=== PATIENT | female | born 1970 | race Caucasian/White ===

== ENCOUNTER 2017-01-13 22:50 | Emergency (ER) | payer SELFPAY ==
[2017-01-13 23:04] VITALS: BMI 43.4
--- NOTE | 2017-01-13 23:53 | DR.GENAD ---
HPI - PCP Primary Care Physician: nfd - HPI Comment HPI Comment: PATIENT IS HAVING GENERALIZE ACHES AND PAIN, FEVER AND HEADACHE. STARTED SUDDENLY. PATIENT NOTICE STRONG ODOR TO HER URINE. - Complaint/Symptoms Chief Complaint Doctors Comments: GENERALIZE BODY ACHES, FEVER AND HEADACHE THAT STARTED TODAY. Chief Complaint:: hurting all over, chest is hurting, my head feels like it's going to bust whole body feels like it's trying to draw up. started about 4 pm today - Nurses notes reviewed Nurses Notes Review: Yes - Source History Provided: Patient - Mode of Arrival Mode of Arrival: Ambulatory - Timing Onset of Chief Complaint: 01/13/17 Came on: Suddenly - Duration Duration: Constant Duration: Days - Severity Severity: Moderate PMH - PMH Past Medical History: Yes Past Medical History: Anxiety, Asthma, COPD, Depression, Dyslipidemia, GERD Past Medical History Comment: pinched nerve in back sciatica ddd Past Surgical History: Yes Surgical History: - Family History History of Family Medical Conditions: Yes Family Medical History: Diabetes Mellitus, Cancer, Heart Failure, Hypertension - Social History Does patient currently use any type of tobacco product: Yes Have you used tobacco products in the last 12 months: No Type of Tobacco Use: Cigarettes How many years tobacco product used: 25 Does any household member use tobacco: No Alcohol Use: Occasionally Do you use any recreational Drugs:: No Lives With: Significant Other Lives Where: Home - infectious screening In the last 2 months have you had wt loss of >10#?: YES Have you had fever, night sweats or hemotysis?: No Have you traveled outside the country in the last 6 months?: No Isolation: Standard ROS - Review of Systems Constitutional: Fever, Weakness, Fatigue. negative: Chills Eyes: No Symptoms Reported. negative: Eye Pain, Discharge ENTM: Nose Congestion. negative: Ear Pain, Nose Discharge, Throat Pain Respiratoy: Non-Productive Cough, Short of Breath. negative: Wheezing, Hemoptysis Cardiovascular: Chest Pain. negative: Edema, Palpitations Gastrointestinal/Abdominal: No Symptoms Reported, Diarrhea, Nausea. negative: Abdominal Pain, Vomiting Genitourinary: Other (ODOR TO URINE). negative: Dysuria, Frequency, Hematuria Neurological: Headache Musculoskeletal: Muscle Pain Integumentary: No Symptoms Reported Hematologic/Lymphatic: No Symptoms Reported Endocrine: No Symptoms Reported All Other Systems: Reviewed and Negative PE - Vital Signs Vitals: Temperature 98.3 F Pulse Rate [Left Brachial] 95 Pulse Rate 117 Respiratory Rate 24 Blood Pressure [Left Arm] 132/80 Blood Pressure 149/77 O2 Sat by Pulse Oximetry 96 - General Limitations: No Limitations General Appearance: Alert - Head Head Exam: Normal Inspection - Eyes Eye exam: Normal Appearance - ENT ENT Exam: Normal External Ear Exam External Ear Exam: Normal External Inspection TM/Canal Exam: Bilateral Bulging Nose Exam: Normal Nose Exam Mouth Exam: Normal Inspection Throat Exam: Normal Inspection - Neck Neck Exam: Trachea Midline - Chest Chest Inspection: Symmetric Chest Wall Rise - Respiratory Respiratory Exam: Normal Lung Sounds Bilat Respiratory Exam: Bilateral Clear to Auscultation - Cardiovascular Cardiovascular Exam: Regular Rate, Normal Rhythm, Normal Heart Sounds - Abdominal Exam Abdominal Exam: Normal Bowel Sounds, Soft. negative: Tenderness - Extremities Extremities Exam: Normal Inspection - Back Back Exam: Normal Inspection - Neurologic Neurological Exam: Alert, Oriented X3, CN II-XII Intact - Psychiatric Psychiatric Exam: Normal Affect, Normal Mood - Skin Skin Exam: Normal Color MDM - Differential Diagnosis Differential Diagnosis: INFLUENZA, HEADACHE, SINUSITIS, MYALGIA Course - Treatment Treatment: SEE ORDERS. - Education/Counseling Education/Counseling: Patient, Education Educated On: Diagnosis, Needs for Follow Up ROR - Labs Reviewed Laboratory Results Reviewed?: Yes Laboratory: Specimen Type Clean catch urine 01/14/17 00:06 Urine Color Yellow (YELLOW) 01/14/17 00:06 Urine Appearance Clear (CLEAR) 01/14/17 00:06 Urine pH 6.5 (5.0 - 8.0) 01/14/17 00:06 Ur Specific [place] 1.010 (1.000-1.030) 01/14/17 00:06 Urine Protein Negative (NEGATIVE) 01/14/17 00:06 Urine Glucose (UA) Negative (NEGATIVE) 01/14/17 00:06 Urine Ketones Negative (NEGATIVE) 01/14/17 00:06 Urine Occult Blood 1+ (NEGATIVE) 01/14/17 00:06 Urine Nitrite Negative (NEGATIVE) 01/14/17 00:06 Urine Bilirubin Negative (NEGATIVE) 01/14/17 00:06 Urine Urobilinogen Normal (NORMAL) 01/14/17 00:06 Ur Leukocyte Esterase Negative (NEGATIVE) 01/14/17 00:06 Urine RBC 0-3 /HPF (NEGATIVE) 01/14/17 00:06 Urine WBC 0-1 /HPF (NEGATIVE) 01/14/17 00:06 Ur Squamous Epith Cells Rare /HPF (NEGATIVE) 01/14/17 00:06 Urine Bacteria Trace /HPF (NEGATIVE) 01/14/17 00:06 Ur Culture Indicated? No/not indicated 01/14/17 00:06 Influenza A (H1N1) PCR Not detected (NOT DETECT) 01/14/17 00:07 Influenza Type A (PCR) Negative (NEGATIVE) 01/14/17 00:07 Influenza Type B (PCR) Negative (NEGATIVE) 01/14/17 00:07 - XRAY XRAY Interpreted by: Self XRAY Findings: NO ACUTE INFILTERATE. DISCUSS SAME WITH PATIENT. - Diagnosis Discharge Problem: Sinusitis, Myalgia, Generalized pain - Discharge Plan Disposition: HOME, SELF-CARE Condition: Stable Prescriptions: Amoxicillin [Amoxil 875 mg] 875 mg PO BID #20 tab Ibuprofen [Motrin Tab 800 mg] 800 mg PO Q8H PRN #20 tab PRN Reason: Pain/Inflammation Tramadol HCl 50 mg PO Q8H PRN #15 tab PRN Reason: Pain - Follow ups/Referrals Follow ups/Referrals: NFD,None [Primary Care Provider] - 2 days Zan Koenig [STAFF PHYSICIAN] - 2 days - Instructions Instructions: Sinusitis, Adult, Muscle Cramps and Spasms Additional Instructions: RETURN TO ED IF WORSE.
[2017-01-13] MEDS ORDERED: TORADOL 60 MG VIAL IM ONE (23:55)
[2017-01-13] MEDS ORDERED: TORADOL 60 MG VIAL ONE (23:56)
[2017-01-14 00:23] LABS: BILIRUBIN,URINE NEGATIVE (NEGATIVE); BLOOD/HEMOGLOBIN,URINE 1+ (NEGATIVE); GLUCOSE, URINE NEGATIVE (NEGATIVE); KETONES,URINE NEGATIVE (NEGATIVE); LEUKOCYTE ESTERASE ,URINE NEGATIVE (NEGATIVE); NITRITES,URINE NEGATIVE (NEGATIVE); PH,URINE 6.5 (5.0 - 8.0); PROTEIN,URINE NEGATIVE (NEGATIVE); UROBILINOGEN,URINE NORMAL (NORMAL)
[2017-01-14 00:29] LABS: APPEARANCE,URINE CLEAR (CLEAR); COLOR,URINE YELLOW (YELLOW); RBC,URINE 0-3 /HPF (NEGATIVE)
[2017-01-14 00:30] LABS: BACTERIA,URINE TRACE /HPF (NEGATIVE); SQUAMOUS EPITHELIAL CELL,UR RARE /HPF (NEGATIVE)
[2017-01-14] MEDS ORDERED: NORCO 10/325 TAB PO ONE (01:43)
[2017-01-14] MEDS ORDERED: AMOXIL CAP 500 MG PO ONE ×2 (01:44→01:45)
[2017-01-14] MEDS ORDERED: NORCO 10/325 TAB ONE (01:46)
[2017-01-14 02:13] VITALS: BP 132/80
--- NOTE | 2017-01-14 04:01 | RAD ---
AP Chest Indication: Chest pain Comparison: 10/26/12 Findings: The trachea is midline. The cardiac silhouette is unremarkable. The lungs are clear without focal infiltrate or effusion. The bony thorax is unremarkable. IMPRESSION: 1. No acute cardiopulmonary abnormality. Reported By:
== END 2017-01-14 02:13 | disposition home or self-care (01) ==
LOC: ER 23:07
DX: J32.9 Chronic sinusitis, unspecified (principal); M79.1 Myalgia; R52 Pain, unspecified
CPT/HCPCS: 71010; 81001; 87502; 87503; 96372; 99282; 99283; J1885

== ENCOUNTER 2017-05-09 19:36 | Emergency (ER) | payer SELFPAY ==
[2017-05-09 19:43] VITALS: BP 135/82; BMI 44.6
[2017-05-09] MEDS ORDERED: TORADOL 60 MG VIAL IM ONE (20:58)
[2017-05-09] MEDS ORDERED: PHENERGAN INJ 25 MG IM ONE (20:59)
[2017-05-09] MEDS ORDERED: PHENERGAN INJ 25 MG ONE (21:01)
[2017-05-09] MEDS ORDERED: TORADOL 60 MG VIAL ONE (21:01)
--- NOTE | 2017-05-09 21:03 | DR.GENAD ---
HPI - PCP Primary Care Physician: BELL YOUNGER - Complaint/Symptoms Chief Complaint Doctors Comments: Patient complains of RLQ pain for the past 24 hours getting worst tonight with her not being able to get any relief. States she took a Hydrocodone 7.5/325 with no improvement in the pain. She denies hematuria, nausea, vomiting, diarrhea or any recent trauma. States she is a patient of [facility]. She denies problems with kidney stones. States the pain is worst when she move and tries to walk. Chief Complaint:: PT C/O LOWER RIGHT QUADRANT PAIN. PT STATES THE PAIN STARTED YESTERDAY, BUT IS WORSE TODAY. PT DESCRIBES THE PAIN A STABBING PAIN THAT SHE CANNOT GET ANY RELIEF FROM. Self Treatment fo Chief Complaint: LORCET AROUND 1300 - Nurses notes reviewed Nurses Notes Review: Yes - Source History Provided: Patient - Mode of Arrival Mode of Arrival: Wheelchair - Timing Onset of Chief Complaint: 05/08/17 Came on: Gradually - Duration Duration: Constant How lon Duration: Hours - Location Location: right lower quadrant pain - Severity Severity: Moderate - Modifying Factors Worsens:: movement Improves:: nothing PMH - PMH Past Medical History: Yes Past Medical History: Anxiety, Asthma, COPD, Depression, Dyslipidemia, GERD Past Surgical History: Yes Surgical History: - Family History History of Family Medical Conditions: Yes Family Medical History: Diabetes Mellitus, Cancer, Heart Failure, Hypertension - Social History Alcohol Use: Rarely Do you use any recreational Drugs:: No Lives With: Family Lives Where: Home - infectious screening In the last 2 months have you had wt loss of >10#?: NO Have you had fever, night sweats or hemotysis?: No Have you traveled outside the country in the last 6 months?: No Isolation: Standard ROS - Review of Systems Constitutional: No Symptoms Reported. negative: See HPI, Chills, Diaphoresis, Fever, Malaise, Weakness, Irritable, Fatigue, Loss of Appetite, Other Eyes: No Symptoms Reported. negative: See HPI, Eye Pain, Blurred Vision, Tearing, Discharge, Photophobia, Diplopia, Other ENTM: No Symptoms Reported Respiratoy: No Symptoms Reported. negative: See HPI, Productive Cough, Non- Productive Cough, Moist Cough, Dry Cough, Hacking Cough, Barking Cough, Brassy Cough, Orthopnea, Short of Breath, Stridor, Wheezing, Hemoptysis, Other Cardiovascular: No Symptoms Reported Gastrointestinal/Abdominal: No Symptoms Reported, Abdominal Pain, Nausea, Vomiting Genitourinary: No Symptoms Reported Neurological: No Symptoms Reported Musculoskeletal: No Symptoms Reported Integumentary: No Symptoms Reported. negative: See HPI, Change in Color, Change in Hair/Nails, Dryness, Lesions, Lumps, Rash, Itching, Wound, Bruises, Juandice, Other Hematologic/Lymphatic: No Symptoms Reported. negative: See HPI, Anemia, Blood Clots, Easy Bleeding, Easy Bruising, Swollen Glands, Lymphadenopathy, Other Endocrine: No Symptoms Reported Psychiatric: No Symptoms Reported PE - Vital Signs Vitals: Temperature 98.6 F Pulse Rate 115 Respiratory Rate 20 Blood Pressure [Left Arm] 132/80 Blood Pressure 135/82 O2 Sat by Pulse Oximetry 96 - General Limitations: No Limitations General Appearance: Alert, In Distress (moderate) - Head Head Exam: Normal Inspection, Atraumatic, Normocephalic - Eyes Eye exam: Normal Appearance, PERRL, EOMI. negative: Scleral Icterus, Conjunctival Injection, Nystagmus, Miosis, Mydrasis, Periorbital Swelling, Periorbital Tenderness, Other - ENT ENT Exam: Normal Exam, Normal Oropharynx, Normal External Ear Exam, Mucous Membranes Moist, TM's Normal Bilaterally External Ear Exam: Normal External Inspection TM/Canal Exam: Bilateral Normal Nose Exam: Normal Nose Exam Mouth Exam: Normal Inspection Throat Exam: Normal Inspection. negative: Tonsillar Erythema, Tonsillomegaly, Tonsillar Exudate, R Peritonsillar Mass, L Peritonsillar Mass, Muffled Voice, Other - Neck Neck Exam: Normal Inspection, Full ROM, Trachea Midline - Chest Chest Inspection: Normal Inspection, Symmetric Chest Wall Rise. negative: Tenderness, Rash, Abscess, Other - Respiratory Respiratory Exam: Normal Lung Sounds Bilat Respiratory Exam: Bilateral Clear to Auscultation - Cardiovascular Cardiovascular Exam: Regular Rate, Normal Rhythm, Normal Heart Sounds. negative : Bradycardia, Tachycardia, Irregular Rhythm, Systolic Murmur, Diastolic Murmur , Rubs, Gallop, Clicks, JVD, +S1, +S2, +S3, +S4, Other - Abdominal Exam Abdominal Exam: Normal Inspection, Normal Bowel Sounds, Soft Abdominal Tenderness: RLQ, Suprapubic, Moderate - Extremities Extremities Exam: Normal Inspection, Full ROM, Normal Capillary Refill. negative: Tenderness, Edema, Joint Swelling, Calf Tenderness, Other - Back Back Exam: Normal Inspection, Full ROM, (R) CVA Tenderness - Neurologic Neurological Exam: Alert, Oriented X3, CN II-XII Intact, Normal Gait, Reflexes Normal - Psychiatric Psychiatric Exam: Normal Affect, Normal Mood - Skin Skin Exam: Warm, Dry, Intact, Normal Color ROR - Labs Reviewed Laboratory Results Reviewed?: Yes (all labs and x-ray results reviewed and discussed with patient) Result Diagrams: 05/09/17 21:07 05/09/17 21:07 Laboratory: WBC 15.9 X10^3/uL (3.6-10.0) H 05/09/17 21:07 RBC 4.98 X10^6/uL (3.5-5.4) 05/09/17 21:07 Hgb 14.5 g/dL (12.0-16.0) 05/09/17 21:07 Hct 43.1 % (36.0-47.0) 05/09/17 21:07 MCV 86.5 fL (80.0-100.0) 05/09/17 21:07 MCH 29.1 pg (27.0-34.0) 05/09/17 21:07 MCHC 33.6 g/dL (33.0-35.0) 05/09/17 21:07 RDW 14.4 % (11.6-16.5) 05/09/17 21:07 Plt Count 319 X10^3/uL (150.0-450.0) 05/09/17 21:07 MPV 8.3 fL (7.4-11.0) 05/09/17 21:07 Neut % 76.5 % (42.0-75.0) H 05/09/17 21:07 Lymph % 14.7 % (21.0-51.0) L 05/09/17 21:07 [place] % 7.6 % (0.0-13.0) 05/09/17 21:07 Eos % 0.5 % (0.9-2.9) L 05/09/17 21:07 Baso % 0.7 % (0.2-1.0) 05/09/17 21:07 Neut # 12.2 x10^3/uL (2.2-4.8) H 05/09/17 21:07 Lymph # 2.3 X10^3/uL (1.3-2.9) 05/09/17 21:07 [place] # 1.2 x10^3/uL (0.3-0.8) H 05/09/17 21:07 Eos # 0.1 x10^3/uL (0.0-0.2) 05/09/17 21:07 Baso # 0.1 X10^3/uL (0.0-0.1) 05/09/17 21:07 Absolute Nucleated RBC 0.0 /100WBC 05/09/17 21:07 Sodium 138 mmol/L (136-145) 05/09/17 21:07 Corrected Sodium TNP 05/09/17 21:07 Potassium 4.3 mmol/L (3.5-5.1) 05/09/17 21:07 Chloride 100 mmol/L (98-107) 05/09/17 21:07 Carbon Dioxide 29.2 mmol/L (21-32) 05/09/17 21:07 BUN 12 mg/dL (7-18) 05/09/17 21:07 Creatinine 0.85 mg/dL (0.55-1.02) 05/09/17 21:07 Est GFR (MDRD) Af Amer > 60 (>60) 05/09/17 21:07 Est GFR (MDRD) Non-Af > 60 (>60) 05/09/17 21:07 Glucose 107 mg/dL (65-99) H 05/09/17 21:07 Calcium 8.9 mg/dL (8.5-10.1) 05/09/17 21:07 Corrected Calcium 9.5 mg/dL (8.5-10.1) 05/09/17 21:07 Total Bilirubin 0.40 mg/dL (0.2-1.0) 05/09/17 21:07 AST 14 Units/L (15-37) L 05/09/17 21:07 ALT 25 Units/L (12-78) 05/09/17 21:07 Alkaline Phosphatase 114 Units/L (46-116) 05/09/17 21:07 Total Protein 7.8 g/dL (6.4-8.2) 05/09/17 21:07 Albumin 3.3 g/dL (3.4-5.0) L 05/09/17 21:07 Globulin 4.5 g/dL (2.5-4.5) 05/09/17 21:07 Albumin/Globulin Ratio 0.7 Ratio (1.1-2.1) L 05/09/17 21:07 Amylase 36 Units/L (25-115) 05/09/17 21:07 Lipase 103 Units/L (73-393) 05/09/17 21:07 Specimen Type Clean catch urine 05/09/17 21:26 Urine Color Yellow (YELLOW) 05/09/17 21:26 Urine Appearance Clear (CLEAR) 05/09/17 21:26 Urine pH 6.5 (5.0 - 8.0) 05/09/17 21:26 Ur Specific [place] 1.015 (1.000-1.030) 05/09/17 21:26 Urine Protein Negative (NEGATIVE) 05/09/17 21:26 Urine Glucose (UA) Negative (NEGATIVE) 05/09/17 21:26 Urine Ketones Negative (NEGATIVE) 05/09/17 21:26 Urine Occult Blood 1+ (NEGATIVE) 05/09/17 21:26 Urine Nitrite Negative (NEGATIVE) 05/09/17 21:26 Urine Bilirubin Negative (NEGATIVE) 05/09/17 21:26 Urine Urobilinogen Normal (NORMAL) 05/09/17 21:26 Ur Leukocyte Esterase 1+ (NEGATIVE) 05/09/17 21:26 Urine RBC 0-2 /HPF (NEGATIVE) 05/09/17 21:26 Urine WBC 3-5 /HPF (NEGATIVE) 05/09/17 21:26 Ur Squamous Epith Cells Rare /HPF (NEGATIVE) 05/09/17 21:26 Urine Bacteria Trace /HPF (NEGATIVE) 05/09/17 21:26 Urine Mucus Moderate /HPF (NEGATIVE) 05/09/17 21:26 Ur Culture Indicated? No/not indicated 05/09/17 21:26 - XRAY XRAY Interpreted by: Radiologist (CT abdomen: Normal CT examination of the abdomen and pelvis.) - Diagnosis Discharge Problem: Abdominal pain, Cystitis, Myalgia - Discharge Plan Disposition: 01 HOME, SELF-CARE Condition: Stable Prescriptions: Acetaminophen/Codeine Tab [TYLENOL w/CODEINE #3 (300 MG/30 MG) *] 1 tab PO Q4- 6H PRN #18 tab PRN Reason: Pain Ciprofloxacin HCl [CIPRO 500 MG TAB *] 500 mg PO Q12H #20 tab Cyclobenzaprine HCl [FLEXERIL 10 MG *] 10 mg PO TID #18 tab - Follow ups/Referrals Follow ups/Referrals: ANDREW YOUNGER [Primary Care Provider] - 3 days - Instructions Instructions: Abdominal Pain, Adult, [id number], Hematuria, Adult, Muscle Pain, Adult
[2017-05-09 21:12] LABS: BASOPHILS # (AUTO) 0.1 X10^3/uL (0.0-0.1); BASOPHILS % (AUTO) 0.7 % (0.2-1.0); EOSINOPHILS # (AUTO) 0.1 x10^3/uL (0.0-0.2); EOSINOPHILS % (AUTO) 0.5 % (0.9-2.9); HEMATOCRIT 43.1 % (36.0-47.0); HEMOGLOBIN 14.5 g/dL (12.0-16.0); LYMPHOCYTES # (AUTO) 2.3 X10^3/uL (1.3-2.9); LYMPHOCYTES % (AUTO) 14.7 % (21.0-51.0); MEAN CORPUSCULAR HEMOGLOBIN 29.1 pg (27.0-34.0); MEAN CORPUSCULAR HGB CONC 33.6 g/dL (33.0-35.0); MEAN CORPUSCULAR VOLUME 86.5 fL (80.0-100.0); MEAN PLATELET VOLUME 8.3 fL (7.4-11.0); MONOCYTES # (AUTO) 1.2 x10^3/uL (0.3-0.8); MONOCYTES % (AUTO) 7.6 % (0.0-13.0); NEUTROPHILS # (AUTO) 12.2 x10^3/uL (2.2-4.8); NEUTROPHILS % (AUTO) 76.5 % (42.0-75.0); PLATELET COUNT 319 X10^3/uL (150.0-450.0); RED BLOOD COUNT 4.98 X10^6/uL (3.5-5.4); RED CELL DISTRIBUTION WIDTH 14.4 % (11.6-16.5); WHITE BLOOD COUNT 15.9 X10^3/uL (3.6-10.0)
[2017-05-09 21:26] LABS: ALANINE AMINOTRANSFERASE 25 Units/L (12-78); ALBUMIN 3.3 g/dL (3.4-5.0); ALKALINE PHOSPHATASE 114 Units/L (46-116); AMYLASE 36 Units/L (25-115); ASPARTATE AMINO TRANSFERASE 14 Units/L (15-37); BLOOD UREA NITROGEN 12 mg/dL (7-18); CALCIUM 8.9 mg/dL (8.5-10.1); CARBON DIOXIDE 29.2 mmol/L (21-32); CHLORIDE 100 mmol/L (98-107); COR CA(FOR HYPOALB) 9.5 mg/dL (8.5-10.1); CREATININE 0.85 mg/dL (0.55-1.02); GLUCOSE 107 mg/dL (65-99); LIPASE 103 Units/L (73-393); SODIUM 138 mmol/L (136-145); TOTAL PROTEIN 7.8 g/dL (6.4-8.2); eGFR BLACK RACES > 60 (>60); eGFR NON BLACK RACES > 60 (>60)
[2017-05-09 21:47] LABS: BILIRUBIN,URINE NEGATIVE (NEGATIVE); BLOOD/HEMOGLOBIN,URINE 1+ (NEGATIVE); GLUCOSE, URINE NEGATIVE (NEGATIVE); KETONES,URINE NEGATIVE (NEGATIVE); LEUKOCYTE ESTERASE ,URINE 1+ (NEGATIVE); NITRITES,URINE NEGATIVE (NEGATIVE); PH,URINE 6.5 (5.0 - 8.0); PROTEIN,URINE NEGATIVE (NEGATIVE); UROBILINOGEN,URINE NORMAL (NORMAL)
[2017-05-09 21:51] LABS: APPEARANCE,URINE CLEAR (CLEAR); BACTERIA,URINE TRACE /HPF (NEGATIVE); COLOR,URINE YELLOW (YELLOW); MUCUS,URINE MODERATE /HPF (NEGATIVE); RBC,URINE 0-2 /HPF (NEGATIVE); SQUAMOUS EPITHELIAL CELL,UR RARE /HPF (NEGATIVE)
--- NOTE | 2017-05-09 22:26 | CT ---
EXAM: CT ABDOMEN AND PELVIS WITHOUT CONTRAST INDICATION: Right lower quadrant pain COMPARISION: No priors available for comparison TECHNIQUE: Axial CT examination of the abdomen and pelvis was performed without intravenous contrast. Coronal a nd sagittal reconstructions were created using the axial data. FINDINGS: The lung bases are clear. The liver, spleen, pancreas, adrenal glands, kidneys, and gallbladder are normal. There is no evidence of biliary ductal dilatation. The aorta and inferior vena cava are norm al in caliber. The bowel loops are nonobstructed. No abnormal mass, lymphadenopathy, or fluid collection. Urinary bladder is normal. The appendix is normal. The uterus and adnexa appear unremarkable. The regional skeleton is intact. IMPRESSION: Normal CT examination of the abdomen and pelvis. Reported By:
== END 2017-05-10 00:05 | disposition home or self-care (01) ==
LOC: ER 19:36
DX: N30.90 Cystitis, unspecified without hematuria (principal); M79.1 Myalgia; R10.31 Right lower quadrant pain
CPT/HCPCS: 36415; 74176; 80053; 81001; 82150; 83690; 85025; 96372; 99283; J1885; J2550

== ENCOUNTER 2023-05-11 11:36 | Inpatient (IN) ==
[2023-05-11] MEDS ORDERED: TUSSIONEX PENNKINETIC SUSP PO PRN (12:04)
[2023-05-11] MEDS ORDERED: CONSULT PHARMACY - POTASSIUM & MAGNESIUM XX SCH (13:00)
[2023-05-11 13:40] LABS: ABG BASE EXCESS 7.4 mmol/L (-2.0-2.0)
[2023-05-11 13:41] LABS: ABG ALLEN TEST POS
--- NOTE | 2023-05-11 13:44 | DR.H&P ---
H&P - History & Physical for Day of: H&P Date: 05/11/23 - Chief Complaint Chief Complaint: CCC, SOB - History of Present Illness History of Present Illness: PT IS 52 WF, DIRECT ADMIT FROM DR STRAUSS OFFICE WITH FAILED OUTPT TREATMENT OF COPD WITH ACUTE BRONCHITIS. PT HAS TAKEN 2 ROCEPHIN INJECTIONS AND KENALOG 40MG IM AND 2 ROUNDS OF PO ANTIBIOTICS. PT WAS MOST RECENTLY STARTED ON BACTRIM AND MEDROL DOSE PACK ON 05/06. PT HAS INCREASE MUCOUS PRODUCTION AND SOB. PLAN TO ADMIT FOR TREATMENT AND EVALUATION OF ACUTE ILLNESS. - Past Medical History Past Medical History: Hypertension, COPD, Asthma, GERD - Past Surgical History Surgical History: Cholecystectomy, INHALATION [employer]ERAPY TE[employer]ER Surgery - Family History Family Medical History: Diabetes Mellitus, Cancer, [place], Hypertension - Social History Does patient currently use any type of tobacco product: Yes Have you used tobacco products in the last 12 months: Yes Type of Tobacco Use: Cigarettes Does any household member use tobacco: Yes Alcohol Use: None Drug Use: None Risks, benefits, and alternatives of opioids discussed: Yes Prescription drug monitoring program results: PDMP reviewed and no concerns identified - Review of Systems Constitutional: Weakness, Malaise Eyes: No Symptoms Reported ENT: No Symptoms Reported Respiratory: Shortness of Breath, SOB with Excertion Cardiovascular: No Symptoms Reported Gastrointestinal: Nausea Genitourinary: Frequency Musculoskeletal: Back Pain Skin: No Symptoms Reported Neurological: Weakness Oriented: Normal Eyes: Normal Ear: Normal Nose: Normal Throat: Normal Respiratory: Rhonchi Throughout, Wheezes Throughout, RLL Diminished, LLL Diminished Cardiovascular: Normal. negative: Edema Auscultation: Bowel Sounds: Normal Palpation: Normal Tenderness: Normal Skin: Decreased Turgur Musculoskeletal: Back:Lumbar Psychiatric: Anxiety Mood Description: Anxious Affect: Anxious Speech Pattern: Clear, Appropriate - Assessment/Plan (1) Acute exacerbation of chronic obstructive pulmonary disease Status: Acute Plan: ADMIT, CXR, ABG AND SPUTUM CULTURE ON ADMISSION. IV ATBX, SOLU MEDROL AND GENTLE IV HYDRATION. VERIFY AND RESUME HOME MEDICATIONS. BP CONTROL, RESP CONSULT & DUO NEBS (2) Hypertension Status: Acute - Allergies Allergies/Adverse Reactions: Allergies Allergy/AdvReac Type Severity Reaction Status Date / Time cyclobenzaprine Allergy Verified 09/24/19 13:14 [From Flexeril] - Medications Home Medications: Home Medications Medication Instructions Recorded Confirmed aspirin 81 mg tablet,delayed 81 mg PO DAILY 12/31/20 12/31/20 release famotidine 40 mg tablet (Pepcid) 40 mg PO BID 12/31/20 12/31/20 lisinopril 10 mg tablet 10 mg PO DAILY 12/31/20 12/31/20 pantoprazole 40 mg tablet,delayed 40 mg PO ONCE 12/31/20 12/31/20 release (Protonix) ropinirole 2 mg tablet 2 mg PO BID 12/31/20 12/31/20 Previous Rx's Medication Instructions Recorded hydrocodone 5 mg-acetaminophen 325 1 tab PO Q4H PRN #20 tabs 01/01/21 mg tablet ondansetron HCl 4 mg tablet 4 mg PO Q6H PRN #20 tabs 01/01/21 (Zofran) cefdinir 300 mg capsule 300 mg PO BID #20 caps 01/02/21
[2023-05-11 13:48] LABS: BASOPHILS # (AUTO) 0.1 X10^3/uL (0.0-0.1); BASOPHILS % (AUTO) 1.3 % (0.2-1.0); EOSINOPHILS # (AUTO) 0.2 x10^3/uL (0.0-0.2); EOSINOPHILS % (AUTO) 1.4 % (0.9-2.9); HEMATOCRIT 50.3 % (36.0-47.0); HEMOGLOBIN 16.7 g/dL (12.0-16.0); LYMPHOCYTES # (AUTO) 3.4 X10^3/uL (1.3-2.9); LYMPHOCYTES % (AUTO) 29.9 % (21.0-51.0); MEAN CORPUSCULAR HEMOGLOBIN 30.5 pg (27.0-34.0); MEAN CORPUSCULAR HGB CONC 33.3 g/dL (33.0-35.0); MEAN CORPUSCULAR VOLUME 91.8 fL (80.0-100.0); MEAN PLATELET VOLUME 8.4 fL (7.4-11.0); MONOCYTES # (AUTO) 0.9 x10^3/uL (0.3-0.8); MONOCYTES % (AUTO) 8.3 % (0.0-13.0); NEUTROPHILS # (AUTO) 6.7 x10^3/uL (2.2-4.8); NEUTROPHILS % (AUTO) 59.1 % (42.0-75.0); PLATELET COUNT 321 X10^3/uL (150.0-450.0); RED BLOOD COUNT 5.48 X10^6/uL (3.5-5.4); WHITE BLOOD COUNT 11.3 X10^3/uL (3.6-10.0)
[2023-05-11 14:00] LABS: ALANINE AMINOTRANSFERASE 33 Units/L (12-78); ALBUMIN 3.8 g/dL (3.4-5.0); ALKALINE PHOSPHATASE 124 Units/L (46-116); ASPARTATE AMINO TRANSFERASE 20 Units/L (15-37); BLOOD UREA NITROGEN 16 mg/dL (7-18); CALCIUM 9.1 mg/dL (8.5-10.1); CARBON DIOXIDE 31.3 mmol/L (21-32); CHLORIDE 98 mmol/L (98-107); COR NA(FOR HYPERGLY) 138 mmol/L (136-145); CREATININE 0.96 mg/dL (0.55-1.02); GLUCOSE 128 mg/dL (65-99); MAGNESIUM 1.8 mg/dL (2.0-2.9); POTASSIUM 3.9 mmol/L (3.5-5.1); SODIUM 137 mmol/L (136-145); TOTAL PROTEIN 7.7 g/dL (6.4-8.2); eGFR NON BLACK RACES > 60 (>60)
[2023-05-11] MEDS: NS 1,000 ML IV 1,000 ML IV SCH (15:24)
[2023-05-11] MEDS: ROBITUSSIN DM PO SCH ×3 (15:24→21:09)
[2023-05-11] MEDS: LEVAQUIN PREMIX IV 500 MG 500 MG/100 ML BAG IV SCH (15:24)
[2023-05-11] MEDS: SOLU-Medrol 125 MG VIAL IVP SCH ×3 (15:25→21:13)
[2023-05-11] MEDS: MAG-OX TAB PO SCH ×2 (15:25→21:13)
--- NOTE | 2023-05-11 15:33 | RAD ---
EXAM: CHEST X-RAYHISTORY: Shortness of breath. COPD.TECHNIQUE: AP CXR dated May 11, 2023 at 3:36 PM.COMPARISON: CXR dated October 07, 2022FINDINGS:The heart size and mediastinum are within normal limits. The lung vital and costophrenic angles are clear. There is no acute parenchymal infiltrate, pleural effusion, or pneumothorax seen. The visualized bony structures are within normal limits.IMPRESSION:1. No evidence for acute cardiopulmonary disease seen.2. No significant interval change from the previous exam.Electronically signed by: Gladys Ash (May 11, 2023 15:32:11)
[2023-05-11] MEDS: DUONEB 0.5 MG/3 MG (3 mL) NEB SCH ×2 (17:30→20:25)
[2023-05-11] MEDS: PULMICORT NEB TX 0.5 MG NEB SCH (20:26)
[2023-05-11] MEDS: REQUIP PO SCH (21:09)
[2023-05-11] MEDS: ZOCOR TAB 20 MG PO SCH (21:10)
[2023-05-11] MEDS: ZyrTEC TAB 10 MG PO SCH (21:11)
[2023-05-11] MEDS: NORVASC TAB 5 MG PO SCH (21:11)
[2023-05-11] MEDS: PEPCID TAB 40 MG PO SCH (21:11)
[2023-05-11] MEDS: SINEquan PO SCH (22:21)
[2023-05-12] MEDS: NS 1,000 ML IV 1,000 ML IV SCH ×2 (03:00→20:40)
[2023-05-12] MEDS: SOLU-Medrol 125 MG VIAL IVP SCH ×3 (05:51→20:59)
[2023-05-12 06:08] LABS: BASOPHILS # (AUTO) 0.1 X10^3/uL (0.0-0.1); BASOPHILS % (AUTO) 0.7 % (0.2-1.0); EOSINOPHILS % (AUTO) 0.1 % (0.9-2.9); HEMATOCRIT 47.1 % (36.0-47.0); HEMOGLOBIN 15.7 g/dL (12.0-16.0); LYMPHOCYTES # (AUTO) 1.5 X10^3/uL (1.3-2.9); LYMPHOCYTES % (AUTO) 12.6 % (21.0-51.0); MEAN CORPUSCULAR HEMOGLOBIN 30.9 pg (27.0-34.0); MEAN CORPUSCULAR HGB CONC 33.3 g/dL (33.0-35.0); MEAN CORPUSCULAR VOLUME 92.8 fL (80.0-100.0); MEAN PLATELET VOLUME 9.1 fL (7.4-11.0); MONOCYTES # (AUTO) 0.2 x10^3/uL (0.3-0.8); MONOCYTES % (AUTO) 1.8 % (0.0-13.0); NEUTROPHILS # (AUTO) 10.1 x10^3/uL (2.2-4.8); NEUTROPHILS % (AUTO) 84.8 % (42.0-75.0); PLATELET COUNT 315 X10^3/uL (150.0-450.0); RED BLOOD COUNT 5.08 X10^6/uL (3.5-5.4); RED CELL DISTRIBUTION WIDTH 14.3 % (11.6-16.5)
[2023-05-12 06:18] LABS: ALANINE AMINOTRANSFERASE 26 Units/L (12-78); ALBUMIN 3.4 g/dL (3.4-5.0); ALKALINE PHOSPHATASE 109 Units/L (46-116); ASPARTATE AMINO TRANSFERASE 10 Units/L (15-37); BLOOD UREA NITROGEN 13 mg/dL (7-18); CARBON DIOXIDE 28.5 mmol/L (21-32); CHLORIDE 99 mmol/L (98-107); COR NA(FOR HYPERGLY) 138 mmol/L (136-145); CREATININE 0.72 mg/dL (0.55-1.02); GLUCOSE 185 mg/dL (65-99); MAGNESIUM 1.9 mg/dL (2.0-2.9); POTASSIUM 4.2 mmol/L (3.5-5.1); SODIUM 136 mmol/L (136-145); TOTAL PROTEIN 6.9 g/dL (6.4-8.2); eGFR NON BLACK RACES > 60 (>60)
[2023-05-12 06:28] LABS: PLATELET MORPHOLOGY COMMENT NORMAL (NORMAL); WHITE BLOOD COUNT 11.9 X10^3/uL (3.6-10.0)
[2023-05-12] MEDS: PULMICORT NEB TX 0.5 MG NEB SCH ×2 (09:02→20:29)
[2023-05-12] MEDS: DUONEB 0.5 MG/3 MG (3 mL) NEB SCH ×4 (09:02→20:29)
[2023-05-12] MEDS: NICOTINE PATCH TD SCH (09:58)
[2023-05-12] MEDS: LEVAQUIN PREMIX IV 500 MG 500 MG/100 ML BAG IV SCH (09:58)
[2023-05-12] MEDS: ROBITUSSIN DM PO SCH ×4 (09:58→20:56)
[2023-05-12] MEDS: ASPIRIN EC 81 MG PO SCH (09:59)
[2023-05-12] MEDS: MAG-OX TAB PO SCH ×2 (09:59→20:58)
[2023-05-12] MEDS: EFFEXOR XR 75 MG CAP 24-HR PO SCH (09:59)
[2023-05-12] MEDS: REQUIP PO SCH ×2 (09:59→20:57)
[2023-05-12] MEDS: PROTONIX TAB 40 MG PO SCH (09:59)
[2023-05-12] MEDS: COZAAR PO SCH (10:00)
[2023-05-12] MEDS: SINGULAIR TAB 10 MG PO SCH (10:00)
[2023-05-12] MEDS: PEPCID TAB 40 MG PO SCH ×2 (10:00→20:57)
[2023-05-12] MEDS: LOVENOX INJ 40 MG SYR SC SCH (10:04)
[2023-05-12] MEDS: NORCO 7.5/325 MG TAB PO PRN (15:34)
--- NOTE | 2023-05-12 18:10 | PCM.PROG ---
Progress Note - Progress Note for Day of Date of Exam: 05/12/23 - Subjective Subjective: PT IS 52 WF DIRECT ADMIT FROM DR STRAUSS OFFICE WITH COPD EXACERBATION WITH ACUTE BRONCHITIS, FAILED OUTPT THERAPY. PT IS CURRENTLY ON IV ATBX AND IV SOLU MEDROL WITH DUO NEBS AND PRN SUPPLEMENTAL O2. PT CONTINUED WITH DIFFUSE EXPIRATORY WHEEZING ON EXAM THIS MORNING WITH PRODUCTIVE COUGH. PT REPORTS SHE DID NOT SLEEP WELL LAST PM DUE COUGHING. PT DENIES ANY N/V/D. PT HAS RESP SWAB ON ADMISSION NEGATIVE FOR FLU, COVID AND RSV. - Past Medical Family Social History Past Med/Fam/Surg Hx: No changes since H&P Allergies: Allergies cyclobenzaprine [From Flexeril] Allergy (Verified 05/11/23 14:42) - Review of Systems ROS: No change since H&P - Vital Signs and I&O's Vital Signs: Vital Signs Temperature 98.4 F Temperature 98.1 F Pulse Rate [Right] 122 Pulse Rate [Right] 108 Pulse Rate 100 Respiratory Rate 18 Respiratory Rate 20 Respiratory Rate 18 Respiratory Rate 20 Blood Pressure [Right Arm] 140/81 Blood Pressure [Right Arm] 137/64 O2 Sat by Pulse Oximetry 96 O2 Sat by Pulse Oximetry 96 O2 Sat by Pulse Oximetry 95 Intake and Output: Intake & Output 05/10/23 05/11/23 05/12/23 05/13/23 11:59 11:59 11:59 11:59 Intake Total 2399 / 2399 540 / 540 Balance 2399 / 2399 540 / 540 - Physical Exam Oriented: Normal Eyes: Normal Ear: Normal Nose: Normal Throat: Normal Respiratory: Wheezes, Rhonchi Cardiovascular: Normal. negative: Edema Auscultation: Bowel Sounds: Normal Tenderness: Normal Skin: Decreased Turgur Musculoskeletal: Back:Lumbar Psychiatric: Anxiety Mood Description: Anxious Affect: Anxious Speech Pattern: Clear, Appropriate - Laboratory and Diagnostics Result Diagrams: 05/12/23 05:16 05/12/23 05:16 Labs: 05/11/23 15:42 Sputum - Expectorated Sputum Sputum Culture - Preliminary 05/11/23 15:42 Sputum - Expectorated Sputum - Final Laboratory WBC 11.9 X10^3/uL (3.6-10.0) H 05/12/23 05:16 RBC 5.08 X10^6/uL (3.5-5.4) 05/12/23 05:16 Hgb 15.7 g/dL (12.0-16.0) 05/12/23 05:16 Hct 47.1 % (36.0-47.0) H 05/12/23 05:16 MCV 92.8 fL (80.0-100.0) 05/12/23 05:16 MCH 30.9 pg (27.0-34.0) 05/12/23 05:16 MCHC 33.3 g/dL (33.0-35.0) 05/12/23 05:16 RDW 14.3 % (11.6-16.5) 05/12/23 05:16 Plt Count 315 X10^3/uL (150.0-450.0) 05/12/23 05:16 Plt Count Comment Adequate (ADEQUATE) 05/12/23 05:16 MPV 9.1 fL (7.4-11.0) 05/12/23 05:16 Neut % (Auto) 84.8 % (42.0-75.0) H 05/12/23 05:16 Lymph % (Auto) 12.6 % (21.0-51.0) L 05/12/23 05:16 [place] % (Auto) 1.8 % (0.0-13.0) 05/12/23 05:16 Eos % (Auto) 0.1 % (0.9-2.9) L 05/12/23 05:16 Baso % (Auto) 0.7 % (0.2-1.0) 05/12/23 05:16 Neut # (Auto) 10.1 x10^3/uL (2.2-4.8) H 05/12/23 05:16 Lymph # (Auto) 1.5 X10^3/uL (1.3-2.9) 05/12/23 05:16 [place] # (Auto) 0.2 x10^3/uL (0.3-0.8) L 05/12/23 05:16 Eos # (Auto) 0.0 x10^3/uL (0.0-0.2) 05/12/23 05:16 Baso # (Auto) 0.1 X10^3/uL (0.0-0.1) 05/12/23 05:16 Absolute Nucleated RBC 0.0 /100WBC 05/12/23 05:16 Plt Clumps, EDTA Few 05/12/23 05:16 Plt Morphology Comment Normal (NORMAL) 05/12/23 05:16 RBC Morphology Normal (NORMAL) 05/12/23 05:16 Sample Site [facility] 05/11/23 13:35 ABG pH 7.470 (7.35-7.45) H 05/11/23 13:35 ABG pCO2 44.0 mmHg (35.0-45.0) 05/11/23 13:35 ABG pO2 70.0 mmHg (80.0-100.0) L 05/11/23 13:35 ABG HCO3 32.0 mmol/L (22-26) H* 05/11/23 13:35 ABG O2 Saturation 95.0 % (90-100) 05/11/23 13:35 ABG Base Excess 7.4 mmol/L (-2.0-2.0) H 05/11/23 13:35 Shahid Test Pos 05/11/23 13:35 A-a Gradient 25.0 mmHg 05/11/23 13:35 FiO2 21.0 05/11/23 13:35 Blood Gas Comments Pt rochelle well eb 05/11/23 13:35 Sodium 136 mmol/L (136-145) 05/12/23 05:16 Corrected Sodium 138 mmol/L (136-145) 05/12/23 05:16 Potassium 4.2 mmol/L (3.5-5.1) 05/12/23 05:16 Chloride 99 mmol/L (98-107) 05/12/23 05:16 Carbon Dioxide 28.5 mmol/L (21-32) 05/12/23 05:16 BUN 13 mg/dL (7-18) 05/12/23 05:16 Creatinine 0.72 mg/dL (0.55-1.02) 05/12/23 05:16 Est GFR (MDRD) Af Amer > 60 (>60) 05/12/23 05:16 Est GFR (MDRD) Non-Af > 60 (>60) 05/12/23 05:16 Glucose 185 mg/dL (65-99) H 05/12/23 05:16 Calcium 9.0 mg/dL (8.5-10.1) 05/12/23 05:16 Corrected Calcium TNP 05/12/23 05:16 Magnesium 1.9 mg/dL (2.0-2.9) L 05/12/23 05:16 Total Bilirubin 0.10 mg/dL (0.2-1.0) L 05/12/23 05:16 AST 10 Units/L (15-37) L 05/12/23 05:16 ALT 26 Units/L (12-78) 05/12/23 05:16 Alkaline Phosphatase 109 Units/L (46-116) 05/12/23 05:16 Total Protein 6.9 g/dL (6.4-8.2) 05/12/23 05:16 Albumin 3.4 g/dL (3.4-5.0) 05/12/23 05:16 Globulin 3.5 g/dL (2.5-4.5) 05/12/23 05:16 Albumin/Globulin Ratio 1.0 Ratio (1.1-2.1) L 05/12/23 05:16 SARS-CoV-2 (PCR) Negative (NEGATIVE) 05/12/23 03:00 Influenza Type A (PCR) Negative (NEGATIVE) 05/12/23 03:00 Influenza Type B (PCR) Negative (NEGATIVE) 05/12/23 03:00 RSV (PCR) Negative (NEGATIVE) 05/12/23 03:00 - Plan (1) Acute exacerbation of chronic obstructive pulmonary disease Status: Acute Plan: REPEAT CXR,. ABG AND SPUTUM CULTURE ON ADMISSION. IV ATBX, SOLU MEDROL AND GENTLE IV HYDRATION. HOME MEDICATION HAVE BEEN CONTINUED. BP CONTROL, RESP CONSULT & DUO NEBS (2) Hypertension Status: Acute
[2023-05-12] MEDS: ANTIVERT TAB 25 MG PO PRN (18:15)
[2023-05-12] MEDS: ZOCOR TAB 20 MG PO SCH (20:56)
[2023-05-12] MEDS: ZyrTEC TAB 10 MG PO SCH (20:56)
[2023-05-12] MEDS: NORVASC TAB 5 MG PO SCH (20:58)
[2023-05-12] MEDS: SINEquan PO SCH (21:04)
[2023-05-13] MEDS: NORCO 7.5/325 MG TAB PO PRN (03:47)
[2023-05-13] MEDS: SOLU-Medrol 125 MG VIAL IVP SCH ×3 (05:53→20:14)
[2023-05-13] MEDS: NS 1,000 ML IV 1,000 ML IV SCH ×4 (05:53→23:35)
[2023-05-13 06:22] LABS: ALANINE AMINOTRANSFERASE 20 Units/L (12-78); ALBUMIN 2.9 g/dL (3.4-5.0); ALKALINE PHOSPHATASE 89 Units/L (46-116); ASPARTATE AMINO TRANSFERASE 13 Units/L (15-37); BLOOD UREA NITROGEN 10 mg/dL (7-18); CALCIUM 8.3 mg/dL (8.5-10.1); CARBON DIOXIDE 26.8 mmol/L (21-32); CHLORIDE 103 mmol/L (98-107); COR CA(FOR HYPOALB) 9.2 mg/dL (8.5-10.1); COR NA(FOR HYPERGLY) 139 mmol/L (136-145); CREATININE 0.63 mg/dL (0.55-1.02); GLUCOSE 169 mg/dL (65-99); POTASSIUM 4.4 mmol/L (3.5-5.1); SODIUM 137 mmol/L (136-145); eGFR NON BLACK RACES > 60 (>60)
[2023-05-13 06:23] LABS: BASOPHILS % (AUTO) 0.1 % (0.2-1.0); HEMATOCRIT 43.8 % (36.0-47.0); HEMOGLOBIN 14.3 g/dL (12.0-16.0); LYMPHOCYTES # (AUTO) 1.5 X10^3/uL (1.3-2.9); LYMPHOCYTES % (AUTO) 8.2 % (21.0-51.0); MEAN CORPUSCULAR HEMOGLOBIN 30.3 pg (27.0-34.0); MEAN CORPUSCULAR HGB CONC 32.5 g/dL (33.0-35.0); MEAN CORPUSCULAR VOLUME 93.3 fL (80.0-100.0); MEAN PLATELET VOLUME 8.5 fL (7.4-11.0); MONOCYTES # (AUTO) 0.5 x10^3/uL (0.3-0.8); MONOCYTES % (AUTO) 2.8 % (0.0-13.0); NEUTROPHILS # (AUTO) 16.6 x10^3/uL (2.2-4.8); NEUTROPHILS % (AUTO) 88.9 % (42.0-75.0); PLATELET COUNT 304 X10^3/uL (150.0-450.0); RED CELL DISTRIBUTION WIDTH 13.9 % (11.6-16.5); WHITE BLOOD COUNT 18.6 X10^3/uL (3.6-10.0)
[2023-05-13] MEDS: PULMICORT NEB TX 0.5 MG NEB SCH ×2 (08:42→20:27)
[2023-05-13] MEDS: DUONEB 0.5 MG/3 MG (3 mL) NEB SCH ×4 (08:42→20:27)
[2023-05-13] MEDS: REQUIP PO SCH ×2 (09:22→20:13)
[2023-05-13] MEDS: ROBITUSSIN DM PO SCH ×4 (09:22→20:13)
[2023-05-13] MEDS: LOVENOX INJ 40 MG SYR SC SCH (09:22)
[2023-05-13] MEDS: LEVAQUIN PREMIX IV 500 MG 500 MG/100 ML BAG IV SCH (09:22)
[2023-05-13] MEDS: PROTONIX TAB 40 MG PO SCH (09:22)
[2023-05-13] MEDS: NICOTINE PATCH TD SCH (09:22)
[2023-05-13] MEDS: EFFEXOR XR 75 MG CAP 24-HR PO SCH (09:23)
[2023-05-13] MEDS: COZAAR PO SCH (09:23)
[2023-05-13] MEDS: SINGULAIR TAB 10 MG PO SCH (09:23)
[2023-05-13] MEDS: PEPCID TAB 40 MG PO SCH ×2 (09:23→20:14)
[2023-05-13] MEDS: ASPIRIN EC 81 MG PO SCH (09:23)
[2023-05-13] MEDS: MAG-OX TAB PO SCH ×2 (09:24→20:14)
[2023-05-13] MEDS: CARAFATE ORAL SUSP PO SCH ×3 (12:41→20:13)
--- NOTE | 2023-05-13 17:39 | PCM.PROG ---
Progress Note - Subjective Subjective: PT IS 52 WF DIRECT ADMIT FROM DR STRAUSS OFFICE WITH COPD EXACERBATION WITH ACUTE BRONCHITIS, FAILED OUTPT THERAPY. PT IS CURRENTLY ON IV ATBX AND IV SOLU MEDROL WITH DUO NEBS AND PRN SUPPLEMENTAL O2. PT CONTINUED WITH DIFFUSE EXPIRATORY WHEEZING ON EXAM THIS MORNING WITH PRODUCTIVE COUGH. PT CO SEVERE DIZZINESS YESTERDAY, ADDED ANTIVERT WITH IMPROVING DIZZY SPELLS - Past Medical Family Social History Past Med/Fam/Surg Hx: No changes since H&P Allergies: Allergies cyclobenzaprine [From Flexeril] Allergy (Verified 05/11/23 14:42) - Review of Systems ROS: No change since H&P - Vital Signs and I&O's Vital Signs: Vital Signs Temperature 98.7 F Temperature 98.8 F Pulse Rate [Right] 98 Pulse Rate [Right] 94 Respiratory Rate 20 Respiratory Rate 20 Blood Pressure [Right Arm] 142/76 Blood Pressure [Right Arm] 145/67 O2 Sat by Pulse Oximetry 94 O2 Sat by Pulse Oximetry 95 Intake and Output: Intake & Output 05/11/23 05/12/23 05/13/23 05/14/23 11:59 11:59 11:59 11:59 Intake Total 2399 / 2399 2886 / 2886 960 / 960 Balance 2399 / 2399 2886 / 2886 960 / 960 - Physical Exam Oriented: Normal Eyes: Normal Ear: Normal Nose: Normal Throat: Normal Respiratory: Wheezes, Rhonchi Cardiovascular: Normal. negative: Edema Auscultation: Bowel Sounds: Normal Tenderness: Normal Skin: Decreased Turgur Musculoskeletal: Back:Lumbar Psychiatric: Anxiety Mood Description: Anxious Affect: Anxious Speech Pattern: Clear, Appropriate - Laboratory and Diagnostics Result Diagrams: 05/13/23 05:20 05/13/23 05:20 Labs: 05/11/23 15:42 Sputum - Expectorated Sputum Sputum Culture - Final 05/11/23 15:42 Sputum - Expectorated Sputum - Final Laboratory WBC 18.6 X10^3/uL (3.6-10.0) H 05/13/23 05:20 RBC 4.70 X10^6/uL (3.5-5.4) 05/13/23 05:20 Hgb 14.3 g/dL (12.0-16.0) 05/13/23 05:20 Hct 43.8 % (36.0-47.0) 05/13/23 05:20 MCV 93.3 fL (80.0-100.0) 05/13/23 05:20 MCH 30.3 pg (27.0-34.0) 05/13/23 05:20 MCHC 32.5 g/dL (33.0-35.0) L 05/13/23 05:20 RDW 13.9 % (11.6-16.5) 05/13/23 05:20 Plt Count 304 X10^3/uL (150.0-450.0) 05/13/23 05:20 Plt Count Comment Adequate (ADEQUATE) 05/12/23 05:16 MPV 8.5 fL (7.4-11.0) 05/13/23 05:20 Neut % (Auto) 88.9 % (42.0-75.0) H 05/13/23 05:20 Lymph % (Auto) 8.2 % (21.0-51.0) L 05/13/23 05:20 [place] % (Auto) 2.8 % (0.0-13.0) 05/13/23 05:20 Eos % (Auto) 0.0 % (0.9-2.9) L 05/13/23 05:20 Baso % (Auto) 0.1 % (0.2-1.0) L 05/13/23 05:20 Neut # (Auto) 16.6 x10^3/uL (2.2-4.8) H 05/13/23 05:20 Lymph # (Auto) 1.5 X10^3/uL (1.3-2.9) 05/13/23 05:20 [place] # (Auto) 0.5 x10^3/uL (0.3-0.8) 05/13/23 05:20 Eos # (Auto) 0.0 x10^3/uL (0.0-0.2) 05/13/23 05:20 Baso # (Auto) 0.0 X10^3/uL (0.0-0.1) 05/13/23 05:20 Absolute Nucleated RBC 0.0 /100WBC 05/13/23 05:20 Plt Clumps, EDTA Few 05/12/23 05:16 Plt Morphology Comment Normal (NORMAL) 05/12/23 05:16 RBC Morphology Normal (NORMAL) 05/12/23 05:16 Sample Site [facility] 05/11/23 13:35 ABG pH 7.470 (7.35-7.45) H 05/11/23 13:35 ABG pCO2 44.0 mmHg (35.0-45.0) 05/11/23 13:35 ABG pO2 70.0 mmHg (80.0-100.0) L 05/11/23 13:35 ABG HCO3 32.0 mmol/L (22-26) H* 05/11/23 13:35 ABG O2 Saturation 95.0 % (90-100) 05/11/23 13:35 ABG Base Excess 7.4 mmol/L (-2.0-2.0) H 05/11/23 13:35 Shahid Test Pos 05/11/23 13:35 A-a Gradient 25.0 mmHg 05/11/23 13:35 FiO2 21.0 05/11/23 13:35 Blood Gas Comments Pt rochelle well eb 05/11/23 13:35 Sodium 137 mmol/L (136-145) 05/13/23 05:20 Corrected Sodium 139 mmol/L (136-145) 05/13/23 05:20 Potassium 4.4 mmol/L (3.5-5.1) 05/13/23 05:20 Chloride 103 mmol/L (98-107) 05/13/23 05:20 Carbon Dioxide 26.8 mmol/L (21-32) 05/13/23 05:20 BUN 10 mg/dL (7-18) 05/13/23 05:20 Creatinine 0.63 mg/dL (0.55-1.02) 05/13/23 05:20 Est GFR (MDRD) Af Amer > 60 (>60) 05/13/23 05:20 Est GFR (MDRD) Non-Af > 60 (>60) 05/13/23 05:20 Glucose 169 mg/dL (65-99) H 05/13/23 05:20 Calcium 8.3 mg/dL (8.5-10.1) L 05/13/23 05:20 Corrected Calcium 9.2 mg/dL (8.5-10.1) 05/13/23 05:20 Magnesium 2.0 mg/dL (2.0-2.9) 05/13/23 05:20 Total Bilirubin 0.10 mg/dL (0.2-1.0) L 05/13/23 05:20 AST 13 Units/L (15-37) L 05/13/23 05:20 ALT 20 Units/L (12-78) 05/13/23 05:20 Alkaline Phosphatase 89 Units/L (46-116) 05/13/23 05:20 Total Protein 6.0 g/dL (6.4-8.2) L 05/13/23 05:20 Albumin 2.9 g/dL (3.4-5.0) L 05/13/23 05:20 Globulin 3.1 g/dL (2.5-4.5) 05/13/23 05:20 Albumin/Globulin Ratio 0.9 Ratio (1.1-2.1) L 05/13/23 05:20 SARS-CoV-2 (PCR) Negative (NEGATIVE) 05/12/23 03:00 Influenza Type A (PCR) Negative (NEGATIVE) 05/12/23 03:00 Influenza Type B (PCR) Negative (NEGATIVE) 05/12/23 03:00 RSV (PCR) Negative (NEGATIVE) 05/12/23 03:00 - Plan (1) Acute exacerbation of chronic obstructive pulmonary disease Status: Acute Plan: REPEAT CXR,. ABG AND SPUTUM CULTURE ON ADMISSION. IV ATBX, SOLU MEDROL AND GENTLE IV HYDRATION. HOME MEDICATION HAVE BEEN CONTINUED. BP CONTROL, RESP CONSULT & DUO NEBS (2) Hypertension Status: Acute
--- NOTE | 2023-05-13 18:42 | RAD ---
HISTORYpain bottom of heal Relevant Clinical InformationSTUDYFOOT, RIGHTCOMPARISONNoneFINDINGSNo acute cortical disruption or dislocation can be identified. No significant soft tissue swelling or injury can be seen. There is mild plantar calcaneal enthesopathy. Mild hallux valgus is noted as well.IMPRESSIONNo acute bony radiographic abnormality.Electronically signed by: NICOLE CHOPRA (May 13, 2023 18:40:22)
[2023-05-13] MEDS: NORVASC TAB 5 MG PO SCH (20:14)
[2023-05-13] MEDS: ZOCOR TAB 20 MG PO SCH (20:14)
[2023-05-13] MEDS: ZyrTEC TAB 10 MG PO SCH (20:14)
[2023-05-13] MEDS: SINEquan PO SCH (20:14)
[2023-05-14] MEDS: NORCO 7.5/325 MG TAB PO PRN ×2 (03:17→18:13)
[2023-05-14 05:47] LABS: BASOPHILS % (AUTO) 0.1 % (0.2-1.0); HEMOGLOBIN 14.3 g/dL (12.0-16.0); LYMPHOCYTES % (AUTO) 11.7 % (21.0-51.0); MEAN CORPUSCULAR HEMOGLOBIN 30.9 pg (27.0-34.0); MEAN CORPUSCULAR HGB CONC 33.4 g/dL (33.0-35.0); MEAN CORPUSCULAR VOLUME 92.5 fL (80.0-100.0); MEAN PLATELET VOLUME 8.3 fL (7.4-11.0); MONOCYTES # (AUTO) 0.4 x10^3/uL (0.3-0.8); MONOCYTES % (AUTO) 2.7 % (0.0-13.0); NEUTROPHILS # (AUTO) 14.3 x10^3/uL (2.2-4.8); NEUTROPHILS % (AUTO) 85.5 % (42.0-75.0); PLATELET COUNT 333 X10^3/uL (150.0-450.0); RED BLOOD COUNT 4.64 X10^6/uL (3.5-5.4); RED CELL DISTRIBUTION WIDTH 14.4 % (11.6-16.5); WHITE BLOOD COUNT 16.7 X10^3/uL (3.6-10.0)
[2023-05-14] MEDS: CARAFATE ORAL SUSP PO SCH ×4 (05:53→20:09)
[2023-05-14 06:00] LABS: ALANINE AMINOTRANSFERASE 24 Units/L (12-78); ALBUMIN 3.2 g/dL (3.4-5.0); ALKALINE PHOSPHATASE 88 Units/L (46-116); ASPARTATE AMINO TRANSFERASE 8 Units/L (15-37); BLOOD UREA NITROGEN 12 mg/dL (7-18); CALCIUM 8.5 mg/dL (8.5-10.1); CARBON DIOXIDE 31.1 mmol/L (21-32); CHLORIDE 102 mmol/L (98-107); COR CA(FOR HYPOALB) 9.1 mg/dL (8.5-10.1); COR NA(FOR HYPERGLY) 138 mmol/L (136-145); CREATININE 0.71 mg/dL (0.55-1.02); GLUCOSE 137 mg/dL (65-99); MAGNESIUM 2.2 mg/dL (2.0-2.9); POTASSIUM 4.5 mmol/L (3.5-5.1); SODIUM 137 mmol/L (136-145); TOTAL PROTEIN 6.2 g/dL (6.4-8.2); eGFR NON BLACK RACES > 60 (>60)
--- NOTE | 2023-05-14 07:14 | RAD ---
HISTORYCOPD EXACERBATIONSTUDNIGHAT ALVA/LAT [id number]/07/2023.TECHNIQUE2 views of the chestFINDINGSCardiac and mediastinal contours are within normal limits. Lungs are mildly hyperexpanded. There are few dense subcentimeter nodular opacities bilaterally such as in the left midlung measuring 7 mm medial-lateral. No consolidation or segmental lung collapse. No definite pleural effusion or pneumothorax.IMPRESSIONHyperexpanded lungs can be seen with COPD or a good inspiratory effort.Dense nodular opacities are likely granulomas. However, chest radiograph is not sensitive for detecting noncalcified pulmonary nodules. Recommend CT chest for this indication as clinically warranted.Electronically signed by: Shemar Paredes (May 14, 2023 07:13:12)
[2023-05-14] MEDS: ZOFRAN INJ 4 MG VIAL IVP PRN (08:43)
[2023-05-14] MEDS: PEPCID TAB 40 MG PO SCH ×2 (09:22→20:11)
[2023-05-14] MEDS: ASPIRIN EC 81 MG PO SCH (09:22)
[2023-05-14] MEDS: COZAAR PO SCH (09:22)
[2023-05-14] MEDS: SINGULAIR TAB 10 MG PO SCH (09:22)
[2023-05-14] MEDS: REQUIP PO SCH ×2 (09:22→20:11)
[2023-05-14] MEDS: EFFEXOR XR 75 MG CAP 24-HR PO SCH (09:22)
[2023-05-14] MEDS: PROTONIX TAB 40 MG PO SCH (09:22)
[2023-05-14] MEDS: NICOTINE PATCH TD SCH (09:23)
[2023-05-14] MEDS: SOLU-Medrol 125 MG VIAL IVP SCH ×2 (09:23→20:10)
[2023-05-14] MEDS: LOVENOX INJ 40 MG SYR SC SCH (09:23)
[2023-05-14] MEDS: MAG-OX TAB PO SCH ×2 (09:24→20:11)
[2023-05-14] MEDS: LEVAQUIN PREMIX IV 500 MG 500 MG/100 ML BAG IV SCH (09:24)
[2023-05-14] MEDS: ROBITUSSIN DM PO SCH ×4 (09:24→20:09)
[2023-05-14] MEDS: PULMICORT NEB TX 0.5 MG NEB SCH ×2 (09:38→20:50)
[2023-05-14] MEDS: DUONEB 0.5 MG/3 MG (3 mL) NEB SCH ×4 (09:38→20:50)
[2023-05-14] MEDS ORDERED: PEPCID 20 MG VIAL IVP ONE (09:47)
--- NOTE | 2023-05-14 10:04 | EKG ---
Test Reason : Chest pain Blood Pressure : */* mmHG Vent. Rate : 92 BPM Atrial Rate : 92 BPM P-R Int : 148 ms QRS Dur : 86 ms QT Int : 346 ms P-R-T Axes : 50 47 35 degrees QTc Int : 427 ms Normal sinus rhythm Normal ECG When compared with ECG of 07-OCT-2022 15:22, No significant change was found Confirmed by Erich Altamirano ([id number]) on 05/18/2023 7:25:51 AM Referred By: Confirmed By: Erich Altamirano
[2023-05-14] MEDS ORDERED: PEPCID 20 MG VIAL 20 MG in NS 50 ML IV 50 ML IV ONE (10:09)
[2023-05-14] MEDS: NS 1,000 ML IV 1,000 ML IV SCH (13:44)
[2023-05-14] MEDS ORDERED: OMNIPAQUE 350 mg/mL 100 mL BTL 100 ML ONE (15:17)
--- NOTE | 2023-05-14 15:58 | CT ---
HISTORYCOPDSTUDYCHEST WITH CONCOMPARISONNo recent comparison studiesTECHNIQUEAxial CT was performed from the thoracic inlet to the upper abdomen with IV contrast. The axial sequences are reconstructed with multiplaner reformats.FINDINGSThe thyroid gland is normal.The heart size is normal with trace pericardial recess effusion.The thoracic aorta is normal in caliber. Although the study was not protocol for thromboembolism detection, please note that there are no centrally occlusive filling defects of the main, lobar or proximal segmental pulmonary artery branches.The lungs are hypoinflated.No mediastinal or hilar lymphadenopathy. No axillary adenopathy.There is no reticulation, honeycombing or fibrotic change. No calcified pleural plaque or effusion.[The exam is somewhat degraded by motion artifact. No organized infiltrates are demonstrated and the pleural spaces are clear. Subsegmental linear airspace opacities within the right lower lobe likely correspond to atelectasis, and there is minimal dependent atelectasis within the left lung base. No disseminated fibrotic lung changes or other aggressive architectural distortion associated with the lung parenchyma.[The liver is enlarged and heterogeneously decreased in attenuation in keeping with hepatic steatosis. The gallbladder is surgically absent.]No acute osseous abnormality.IMPRESSIONMinimal subsegmental atelectasis of the dependent lung bases. Otherwise, no acute radiographic abnormalities of the chestHepatomegaly with generalized hepatic steatosis, status post cholecystectomyRadiation dose reduction was achieved through individualized adjustment of kVP and/or mA, through adaptive statistical iterative reconstruction, and/or through automated tube current modulation.Electronically signed by: EMY PASCUAL (May 14, 2023 15:57:20)
--- NOTE | 2023-05-14 17:44 | PCM.PROG ---
Progress Note - Progress Note for Day of Date of Exam: 05/14/23 - Subjective Subjective: PT IS 52 WF DIRECT ADMIT FROM DR STRAUSS OFFICE WITH COPD EXACERBATION WITH ACUTE BRONCHITIS, FAILED OUTPT THERAPY. PT IS CURRENTLY ON IV ATBX AND IV SOLU MEDROL WITH DUO NEBS AND PRN SUPPLEMENTAL O2. PT CONTINUED WITH DIFFUSE EXPIRATORY WHEEZING ON EXAM THIS MORNING WITH PRODUCTIVE COUGH. PTS CHEST XRAY THIS MORNING REVEALED: Dense nodular opacities are likely. granulomas. However, chest radiograph is not sensitive for detecting. noncalcified pulmonary nodules. Recommend CT chest for this indication as. clinically warranted. WE REVIEWED RESULTS WITH PT AND PLAN TO OBTAIN A CT CHEST WITH CONTRAST TODAY. PT CO VOMITING THIS MORNING AFTER EATING. PT WAS GIVEN ZOFRAN FOR NAUSEA AND ONE TIME PEPCID IV. PROTONIX INCREASED TO BID. - Past Medical Family Social History Past Med/Fam/Surg Hx: No changes since H&P Allergies: Allergies cyclobenzaprine [From Flexeril] Allergy (Verified 05/11/23 14:42) - Review of Systems ROS: No change since H&P - Vital Signs and I&O's Vital Signs: Vital Signs Temperature 97.8 F Temperature 97.5 F Pulse Rate [Right] 94 Pulse Rate [Right] 84 Respiratory Rate 20 Respiratory Rate 20 Blood Pressure [Right Arm] 143/77 Blood Pressure [Right Arm] 144/88 O2 Sat by Pulse Oximetry 93 O2 Sat by Pulse Oximetry 92 Intake and Output: Intake & Output 05/12/23 05/13/23 05/14/23 05/15/23 11:59 11:59 11:59 11:59 Intake Total 2399 / 2399 2886 / 2886 4071 / 4071 940 / 940 Balance 2399 / 2399 2886 / 2886 4071 / 4071 940 / 940 - Physical Exam Oriented: Normal Eyes: Normal Ear: Normal Nose: Normal Throat: Normal Respiratory: Wheezes, Rhonchi Cardiovascular: Normal. negative: Edema Auscultation: Bowel Sounds: Normal Tenderness: Normal Skin: Decreased Turgur Musculoskeletal: Back:Lumbar Psychiatric: Anxiety Mood Description: Anxious Affect: Anxious Speech Pattern: Clear, Appropriate - Laboratory and Diagnostics Result Diagrams: 05/14/23 05:15 05/14/23 05:15 Labs: 05/11/23 15:42 Sputum - Expectorated Sputum Sputum Culture - Final 05/11/23 15:42 Sputum - Expectorated Sputum - Final Laboratory WBC 16.7 X10^3/uL (3.6-10.0) H 05/14/23 05:15 RBC 4.64 X10^6/uL (3.5-5.4) 05/14/23 05:15 Hgb 14.3 g/dL (12.0-16.0) 05/14/23 05:15 Hct 43.0 % (36.0-47.0) 05/14/23 05:15 MCV 92.5 fL (80.0-100.0) 05/14/23 05:15 MCH 30.9 pg (27.0-34.0) 05/14/23 05:15 MCHC 33.4 g/dL (33.0-35.0) 05/14/23 05:15 RDW 14.4 % (11.6-16.5) 05/14/23 05:15 Plt Count 333 X10^3/uL (150.0-450.0) 05/14/23 05:15 Plt Count Comment Adequate (ADEQUATE) 05/12/23 05:16 MPV 8.3 fL (7.4-11.0) 05/14/23 05:15 Neut % (Auto) 85.5 % (42.0-75.0) H 05/14/23 05:15 Lymph % (Auto) 11.7 % (21.0-51.0) L 05/14/23 05:15 [place] % (Auto) 2.7 % (0.0-13.0) 05/14/23 05:15 Eos % (Auto) 0.0 % (0.9-2.9) L 05/14/23 05:15 Baso % (Auto) 0.1 % (0.2-1.0) L 05/14/23 05:15 Neut # (Auto) 14.3 x10^3/uL (2.2-4.8) H 05/14/23 05:15 Lymph # (Auto) 2.0 X10^3/uL (1.3-2.9) 05/14/23 05:15 [place] # (Auto) 0.4 x10^3/uL (0.3-0.8) 05/14/23 05:15 Eos # (Auto) 0.0 x10^3/uL (0.0-0.2) 05/14/23 05:15 Baso # (Auto) 0.0 X10^3/uL (0.0-0.1) 05/14/23 05:15 Absolute Nucleated RBC 0.0 /100WBC 05/14/23 05:15 Plt Clumps, EDTA Few 05/12/23 05:16 Plt Morphology Comment Normal (NORMAL) 05/12/23 05:16 RBC Morphology Normal (NORMAL) 05/12/23 05:16 Sample Site [facility] 05/11/23 13:35 ABG pH 7.470 (7.35-7.45) H 05/11/23 13:35 ABG pCO2 44.0 mmHg (35.0-45.0) 05/11/23 13:35 ABG pO2 70.0 mmHg (80.0-100.0) L 05/11/23 13:35 ABG HCO3 32.0 mmol/L (22-26) H* 05/11/23 13:35 ABG O2 Saturation 95.0 % (90-100) 05/11/23 13:35 ABG Base Excess 7.4 mmol/L (-2.0-2.0) H 05/11/23 13:35 Shahid Test Pos 05/11/23 13:35 A-a Gradient 25.0 mmHg 05/11/23 13:35 FiO2 21.0 05/11/23 13:35 Blood Gas Comments Pt rochelle well eb 05/11/23 13:35 Sodium 137 mmol/L (136-145) 05/14/23 05:15 Corrected Sodium 138 mmol/L (136-145) 05/14/23 05:15 Potassium 4.5 mmol/L (3.5-5.1) 05/14/23 05:15 Chloride 102 mmol/L (98-107) 05/14/23 05:15 Carbon Dioxide 31.1 mmol/L (21-32) 05/14/23 05:15 BUN 12 mg/dL (7-18) 05/14/23 05:15 Creatinine 0.71 mg/dL (0.55-1.02) 05/14/23 05:15 Est GFR (MDRD) Af Amer > 60 (>60) 05/14/23 05:15 Est GFR (MDRD) Non-Af > 60 (>60) 05/14/23 05:15 Glucose 137 mg/dL (65-99) H 05/14/23 05:15 Calcium 8.5 mg/dL (8.5-10.1) 05/14/23 05:15 Corrected Calcium 9.1 mg/dL (8.5-10.1) 05/14/23 05:15 Magnesium 2.2 mg/dL (2.0-2.9) 05/14/23 05:15 Total Bilirubin 0.10 mg/dL (0.2-1.0) L 05/14/23 05:15 AST 8 Units/L (15-37) L 05/14/23 05:15 ALT 24 Units/L (12-78) 05/14/23 05:15 Alkaline Phosphatase 88 Units/L (46-116) 05/14/23 05:15 Total Protein 6.2 g/dL (6.4-8.2) L 05/14/23 05:15 Albumin 3.2 g/dL (3.4-5.0) L 05/14/23 05:15 Globulin 3.0 g/dL (2.5-4.5) 05/14/23 05:15 Albumin/Globulin Ratio 1.1 Ratio (1.1-2.1) 05/14/23 05:15 SARS-CoV-2 (PCR) Negative (NEGATIVE) 05/12/23 03:00 Influenza Type A (PCR) Negative (NEGATIVE) 05/12/23 03:00 Influenza Type B (PCR) Negative (NEGATIVE) 05/12/23 03:00 RSV (PCR) Negative (NEGATIVE) 05/12/23 03:00 - Plan (1) Acute exacerbation of chronic obstructive pulmonary disease Status: Acute Plan: REPEAT CXR,. ABG AND SPUTUM CULTURE ON ADMISSION. IV ATBX, SOLU MEDROL AND GENTLE IV HYDRATION. HOME MEDICATION HAVE BEEN CONTINUED. BP CONTROL, RESP CONSULT & DUO NEBS (2) Hypertension Status: Acute
[2023-05-14] MEDS: ZyrTEC TAB 10 MG PO SCH (20:10)
[2023-05-14] MEDS: NORVASC TAB 5 MG PO SCH (20:10)
[2023-05-14] MEDS: SINEquan PO SCH (20:10)
[2023-05-14] MEDS: ZOCOR TAB 20 MG PO SCH (20:10)
[2023-05-14] MEDS: PROTONIX INJ 40 MG VIAL IVP SCH (20:10)
[2023-05-15] MEDS: NS 1,000 ML IV 1,000 ML IV SCH ×3 (00:14→18:33)
[2023-05-15] MEDS: NORCO 7.5/325 MG TAB PO PRN ×2 (05:00→23:58)
[2023-05-15] MEDS: CARAFATE ORAL SUSP PO SCH ×4 (05:41→20:17)
[2023-05-15 05:49] LABS: BASOPHILS % (AUTO) 0.2 % (0.2-1.0); HEMATOCRIT 42.2 % (36.0-47.0); HEMOGLOBIN 13.9 g/dL (12.0-16.0); LYMPHOCYTES # (AUTO) 2.2 X10^3/uL (1.3-2.9); LYMPHOCYTES % (AUTO) 15.2 % (21.0-51.0); MEAN CORPUSCULAR HEMOGLOBIN 30.4 pg (27.0-34.0); MEAN CORPUSCULAR VOLUME 92.1 fL (80.0-100.0); MEAN PLATELET VOLUME 8.1 fL (7.4-11.0); MONOCYTES # (AUTO) 0.8 x10^3/uL (0.3-0.8); MONOCYTES % (AUTO) 5.4 % (0.0-13.0); NEUTROPHILS # (AUTO) 11.5 x10^3/uL (2.2-4.8); NEUTROPHILS % (AUTO) 79.2 % (42.0-75.0); PLATELET COUNT 310 X10^3/uL (150.0-450.0); RED BLOOD COUNT 4.58 X10^6/uL (3.5-5.4); RED CELL DISTRIBUTION WIDTH 14.3 % (11.6-16.5); WHITE BLOOD COUNT 14.5 X10^3/uL (3.6-10.0)
[2023-05-15 06:08] LABS: ALANINE AMINOTRANSFERASE 22 Units/L (12-78); ALKALINE PHOSPHATASE 79 Units/L (46-116); ASPARTATE AMINO TRANSFERASE 10 Units/L (15-37); BLOOD UREA NITROGEN 11 mg/dL (7-18); CALCIUM 8.3 mg/dL (8.5-10.1); CARBON DIOXIDE 30.6 mmol/L (21-32); CHLORIDE 102 mmol/L (98-107); COR CA(FOR HYPOALB) 9.1 mg/dL (8.5-10.1); COR NA(FOR HYPERGLY) 139 mmol/L (136-145); CREATININE 0.73 mg/dL (0.55-1.02); GLUCOSE 129 mg/dL (65-99); POTASSIUM 4.1 mmol/L (3.5-5.1); SODIUM 138 mmol/L (136-145); TOTAL PROTEIN 5.9 g/dL (6.4-8.2); eGFR NON BLACK RACES > 60 (>60)
[2023-05-15] MEDS: DUONEB 0.5 MG/3 MG (3 mL) NEB SCH ×4 (08:25→20:45)
[2023-05-15] MEDS: PULMICORT NEB TX 0.5 MG NEB SCH ×2 (08:25→20:45)
[2023-05-15] MEDS: REQUIP PO SCH ×2 (09:16→20:19)
[2023-05-15] MEDS: COZAAR PO SCH (09:16)
[2023-05-15] MEDS: EFFEXOR XR 75 MG CAP 24-HR PO SCH (09:16)
[2023-05-15] MEDS: SOLU-Medrol 125 MG VIAL IVP SCH ×2 (09:16→20:16)
[2023-05-15] MEDS: PROTONIX INJ 40 MG VIAL IVP SCH ×2 (09:16→20:15)
[2023-05-15] MEDS: NICOTINE PATCH TD SCH (09:17)
[2023-05-15] MEDS: SINGULAIR TAB 10 MG PO SCH (09:17)
[2023-05-15] MEDS: ASPIRIN EC 81 MG PO SCH (09:17)
[2023-05-15] MEDS: PEPCID TAB 40 MG PO SCH ×2 (09:17→20:19)
[2023-05-15] MEDS: LOVENOX INJ 40 MG SYR SC SCH (09:17)
[2023-05-15] MEDS: MAG-OX TAB PO SCH ×2 (09:17→20:19)
[2023-05-15] MEDS: LEVAQUIN PREMIX IV 500 MG 500 MG/100 ML BAG IV SCH (09:17)
[2023-05-15] MEDS: ROBITUSSIN DM PO SCH ×4 (09:17→20:17)
[2023-05-15] MEDS: NYSTATIN SUSP PO SCH ×4 (09:52→20:17)
[2023-05-15] MEDS: ZOCOR TAB 20 MG PO SCH (20:18)
[2023-05-15] MEDS: ANTIVERT TAB 25 MG PO PRN (20:18)
[2023-05-15] MEDS: NORVASC TAB 5 MG PO SCH (20:19)
[2023-05-15] MEDS: ZyrTEC TAB 10 MG PO SCH (20:19)
[2023-05-15] MEDS: SINEquan PO SCH (20:19)
[2023-05-16] MEDS: NS 1,000 ML IV 1,000 ML IV SCH ×2 (05:25→18:03)
[2023-05-16 06:39] LABS: BASOPHILS % (AUTO) 0.2 % (0.2-1.0); HEMOGLOBIN 14.4 g/dL (12.0-16.0)
[2023-05-16 06:49] LABS: ALANINE AMINOTRANSFERASE 24 Units/L (12-78); ALKALINE PHOSPHATASE 80 Units/L (46-116); ASPARTATE AMINO TRANSFERASE 9 Units/L (15-37); BLOOD UREA NITROGEN 12 mg/dL (7-18); CALCIUM 8.2 mg/dL (8.5-10.1); CHLORIDE 101 mmol/L (98-107); COR NA(FOR HYPERGLY) 141 mmol/L (136-145); CREATININE 0.74 mg/dL (0.55-1.02); GLUCOSE 123 mg/dL (65-99); POTASSIUM 4.2 mmol/L (3.5-5.1); SODIUM 140 mmol/L (136-145); eGFR NON BLACK RACES > 60 (>60)
[2023-05-16] MEDS: CARAFATE ORAL SUSP PO SCH ×4 (06:49→20:36)
[2023-05-16 06:50] LABS: HEMATOCRIT 44.2 % (36.0-47.0); LYMPHOCYTES # (AUTO) 1.9 X10^3/uL (1.3-2.9); LYMPHOCYTES % (AUTO) 14.1 % (21.0-51.0); MEAN CORPUSCULAR HEMOGLOBIN 30.1 pg (27.0-34.0); MEAN CORPUSCULAR HGB CONC 32.6 g/dL (33.0-35.0); MEAN CORPUSCULAR VOLUME 92.5 fL (80.0-100.0); MONOCYTES # (AUTO) 0.4 x10^3/uL (0.3-0.8); MONOCYTES % (AUTO) 3.1 % (0.0-13.0); NEUTROPHILS # (AUTO) 11.1 x10^3/uL (2.2-4.8); NEUTROPHILS % (AUTO) 82.6 % (42.0-75.0); PLATELET COUNT 300 X10^3/uL (150.0-450.0); RED BLOOD COUNT 4.78 X10^6/uL (3.5-5.4); RED CELL DISTRIBUTION WIDTH 14.2 % (11.6-16.5); WHITE BLOOD COUNT 13.4 X10^3/uL (3.6-10.0)
[2023-05-16 07:08] LABS: PLATELET MORPHOLOGY COMMENT NORMAL (NORMAL)
[2023-05-16] MEDS: DUONEB 0.5 MG/3 MG (3 mL) NEB SCH ×4 (08:48→21:00)
[2023-05-16] MEDS: PULMICORT NEB TX 0.5 MG NEB SCH ×2 (08:49→21:00)
[2023-05-16] MEDS: LOVENOX INJ 40 MG SYR SC SCH (09:05)
[2023-05-16] MEDS: ROBITUSSIN DM PO SCH ×4 (09:05→20:36)
[2023-05-16] MEDS: SOLU-Medrol 125 MG VIAL IVP SCH (09:05)
[2023-05-16] MEDS: NYSTATIN SUSP PO SCH ×4 (09:05→20:36)
[2023-05-16] MEDS: REQUIP PO SCH ×2 (09:06→20:36)
[2023-05-16] MEDS: ASPIRIN EC 81 MG PO SCH (09:06)
[2023-05-16] MEDS: COZAAR PO SCH (09:06)
[2023-05-16] MEDS: SINGULAIR TAB 10 MG PO SCH (09:06)
[2023-05-16] MEDS: PROTONIX INJ 40 MG VIAL IVP SCH ×2 (09:06→20:34)
[2023-05-16] MEDS: PEPCID TAB 40 MG PO SCH ×2 (09:06→20:36)
[2023-05-16] MEDS: EFFEXOR XR 75 MG CAP 24-HR PO SCH (09:06)
[2023-05-16] MEDS: LEVAQUIN PREMIX IV 500 MG 500 MG/100 ML BAG IV SCH (09:06)
[2023-05-16] MEDS: NICOTINE PATCH TD SCH (09:06)
[2023-05-16] MEDS: NORCO 7.5/325 MG TAB PO PRN ×2 (09:07→20:41)
[2023-05-16] MEDS: MAG-OX TAB PO SCH ×2 (09:07→20:35)
[2023-05-16] MEDS: DIFLUCAN PO SCH (13:30)
[2023-05-16] MEDS: ZOFRAN INJ 4 MG VIAL IVP PRN (18:03)
[2023-05-16] MEDS: NORVASC TAB 5 MG PO SCH (20:34)
[2023-05-16] MEDS: ZOCOR TAB 20 MG PO SCH (20:35)
[2023-05-16] MEDS: ZyrTEC TAB 10 MG PO SCH (20:35)
[2023-05-16] MEDS: SINEquan PO SCH (21:48)
[2023-05-17] MEDS: CARAFATE ORAL SUSP PO SCH ×4 (05:41→21:07)
[2023-05-17 06:16] LABS: BASOPHILS % (AUTO) 0.1 % (0.2-1.0); MONOCYTES # (AUTO) 1.2 x10^3/uL (0.3-0.8)
[2023-05-17 06:19] LABS: ALANINE AMINOTRANSFERASE 23 Units/L (12-78); ALBUMIN 2.8 g/dL (3.4-5.0); ALKALINE PHOSPHATASE 74 Units/L (46-116); ASPARTATE AMINO TRANSFERASE 9 Units/L (15-37); BLOOD UREA NITROGEN 13 mg/dL (7-18); CALCIUM 8.1 mg/dL (8.5-10.1); CARBON DIOXIDE 37.4 mmol/L (21-32); CHLORIDE 101 mmol/L (98-107); COR CA(FOR HYPOALB) 9.1 mg/dL (8.5-10.1); CREATININE 0.69 mg/dL (0.55-1.02); GLUCOSE 86 mg/dL (65-99); SODIUM 140 mmol/L (136-145); TOTAL PROTEIN 5.6 g/dL (6.4-8.2); eGFR NON BLACK RACES > 60 (>60)
[2023-05-17 06:20] LABS: HEMATOCRIT 43.2 % (36.0-47.0); HEMOGLOBIN 14.2 g/dL (12.0-16.0); LYMPHOCYTES # (AUTO) 3.1 X10^3/uL (1.3-2.9); LYMPHOCYTES % (AUTO) 19.4 % (21.0-51.0); MEAN CORPUSCULAR HEMOGLOBIN 30.2 pg (27.0-34.0); MEAN CORPUSCULAR HGB CONC 32.8 g/dL (33.0-35.0); MONOCYTES % (AUTO) 7.2 % (0.0-13.0); NEUTROPHILS # (AUTO) 11.9 x10^3/uL (2.2-4.8); NEUTROPHILS % (AUTO) 73.3 % (42.0-75.0); PLATELET COUNT 295 X10^3/uL (150.0-450.0); RED CELL DISTRIBUTION WIDTH 13.7 % (11.6-16.5); WHITE BLOOD COUNT 16.2 X10^3/uL (3.6-10.0)
[2023-05-17] MEDS: PULMICORT NEB TX 0.5 MG NEB SCH ×2 (08:16→20:23)
[2023-05-17] MEDS: DUONEB 0.5 MG/3 MG (3 mL) NEB SCH ×4 (08:17→20:23)
[2023-05-17] MEDS: NS 1,000 ML IV 1,000 ML IV SCH (08:20)
[2023-05-17] MEDS: PROTONIX INJ 40 MG VIAL IVP SCH ×2 (08:21→21:11)
[2023-05-17] MEDS: LEVAQUIN PREMIX IV 500 MG 500 MG/100 ML BAG IV SCH (08:21)
[2023-05-17] MEDS: REQUIP PO SCH ×2 (08:23→21:08)
[2023-05-17] MEDS: ROBITUSSIN DM PO SCH ×4 (08:23→21:07)
[2023-05-17] MEDS: DIFLUCAN PO SCH (08:23)
[2023-05-17] MEDS: NICOTINE PATCH TD SCH (08:23)
[2023-05-17] MEDS: ASPIRIN EC 81 MG PO SCH (08:24)
[2023-05-17] MEDS: SINGULAIR TAB 10 MG PO SCH (08:24)
[2023-05-17] MEDS: PEPCID TAB 40 MG PO SCH ×2 (08:24→21:10)
[2023-05-17] MEDS: EFFEXOR XR 75 MG CAP 24-HR PO SCH (08:24)
[2023-05-17] MEDS: COZAAR PO SCH (08:24)
[2023-05-17] MEDS: NYSTATIN SUSP PO SCH ×4 (08:25→21:07)
[2023-05-17] MEDS: LOVENOX INJ 40 MG SYR SC SCH (08:25)
[2023-05-17] MEDS: MAG-OX TAB PO SCH ×2 (08:26→21:10)
[2023-05-17 13:16] VITALS: BMI 46.5
[2023-05-17] MEDS: ANTIVERT TAB 25 MG PO PRN ×2 (14:56→23:24)
[2023-05-17] MEDS ORDERED: PHENERGAN TAB 25 MG PO PRN (15:34)
[2023-05-17] MEDS ORDERED: PHENERGAN TAB 25 MG PO ONE (15:35)
[2023-05-17] MEDS: NORCO 7.5/325 MG TAB PO PRN (19:35)
[2023-05-17] MEDS: SINEquan PO SCH (21:07)
[2023-05-17] MEDS: ZyrTEC TAB 10 MG PO SCH (21:07)
[2023-05-17] MEDS: NORVASC TAB 5 MG PO SCH (21:07)
[2023-05-17] MEDS: ZOCOR TAB 20 MG PO SCH (21:08)
[2023-05-18] MEDS: NS 1,000 ML IV 1,000 ML IV SCH (00:17)
[2023-05-18] MEDS: CARAFATE ORAL SUSP PO SCH ×4 (05:49→20:46)
[2023-05-18 06:10] LABS: BASOPHILS % (AUTO) 0.2 % (0.2-1.0); EOSINOPHILS # (AUTO) 0.2 x10^3/uL (0.0-0.2); EOSINOPHILS % (AUTO) 1.2 % (0.9-2.9); HEMATOCRIT 44.6 % (36.0-47.0); HEMOGLOBIN 14.7 g/dL (12.0-16.0); LYMPHOCYTES % (AUTO) 28.7 % (21.0-51.0); MEAN CORPUSCULAR HEMOGLOBIN 30.2 pg (27.0-34.0); MEAN CORPUSCULAR HGB CONC 32.9 g/dL (33.0-35.0); MEAN CORPUSCULAR VOLUME 91.8 fL (80.0-100.0); MEAN PLATELET VOLUME 7.7 fL (7.4-11.0); MONOCYTES # (AUTO) 1.1 x10^3/uL (0.3-0.8); NEUTROPHILS # (AUTO) 8.6 x10^3/uL (2.2-4.8); NEUTROPHILS % (AUTO) 61.9 % (42.0-75.0); PLATELET COUNT 295 X10^3/uL (150.0-450.0); RED BLOOD COUNT 4.86 X10^6/uL (3.5-5.4); RED CELL DISTRIBUTION WIDTH 14.3 % (11.6-16.5)
[2023-05-18 06:26] LABS: ALANINE AMINOTRANSFERASE 28 Units/L (12-78); ALBUMIN 2.8 g/dL (3.4-5.0); ALKALINE PHOSPHATASE 81 Units/L (46-116); ASPARTATE AMINO TRANSFERASE 14 Units/L (15-37); BLOOD UREA NITROGEN 15 mg/dL (7-18); CARBON DIOXIDE 36.3 mmol/L (21-32); CHLORIDE 100 mmol/L (98-107); CREATININE 0.75 mg/dL (0.55-1.02); GLUCOSE 74 mg/dL (65-99); POTASSIUM 3.5 mmol/L (3.5-5.1); SODIUM 140 mmol/L (136-145); TOTAL PROTEIN 5.8 g/dL (6.4-8.2); eGFR NON BLACK RACES > 60 (>60)
[2023-05-18] MEDS ORDERED: CONSULT PHARMACY - POTASSIUM & MAGNESIUM XX SCH (08:00)
[2023-05-18] MEDS: PULMICORT NEB TX 0.5 MG NEB SCH ×2 (08:12→20:53)
[2023-05-18] MEDS: DUONEB 0.5 MG/3 MG (3 mL) NEB SCH ×5 (08:12→20:53)
[2023-05-18] MEDS: LOVENOX INJ 40 MG SYR SC SCH (08:27)
[2023-05-18] MEDS: ROBITUSSIN DM PO SCH ×4 (08:27→20:46)
[2023-05-18] MEDS: PEPCID TAB 40 MG PO SCH ×2 (08:27→20:47)
[2023-05-18] MEDS: NYSTATIN SUSP PO SCH ×4 (08:27→20:46)
[2023-05-18] MEDS: NICOTINE PATCH TD SCH (08:27)
[2023-05-18] MEDS: COZAAR PO SCH (08:27)
[2023-05-18] MEDS: EFFEXOR XR 75 MG CAP 24-HR PO SCH (08:28)
[2023-05-18] MEDS: ASPIRIN EC 81 MG PO SCH (08:28)
[2023-05-18] MEDS: REQUIP PO SCH ×2 (08:28→20:46)
[2023-05-18] MEDS: MAG-OX TAB PO SCH ×2 (08:28→20:48)
[2023-05-18] MEDS: DIFLUCAN PO SCH (08:28)
[2023-05-18] MEDS: SINGULAIR TAB 10 MG PO SCH (08:28)
[2023-05-18] MEDS: NORCO 7.5/325 MG TAB PO PRN ×2 (08:30→19:42)
[2023-05-18] MEDS ORDERED: K-DUR TAB 20 MEQ PO SCH ×2 (09:00→21:00)
[2023-05-18] MEDS: ZOFRAN TAB 4 MG SL PRN (11:25)
--- NOTE | 2023-05-18 13:41 | EKG ---
Test Reason : left side chest pain Blood Pressure : */* mmHG Vent. Rate : 87 BPM Atrial Rate : 87 BPM P-R Int : 146 ms QRS Dur : 76 ms QT Int : 368 ms P-R-T Axes : 41 43 46 degrees QTc Int : 442 ms Sinus rhythm with premature supraventricular complexes Otherwise normal ECG When compared with ECG of 14-MAY-2023 09:56, premature supraventricular complexes are now present Confirmed by Erich Altamirano ([id number]) on 05/20/2023 12:37:29 PM Referred By: Confirmed By: Erich Altamirano
--- NOTE | 2023-05-18 15:26 | RAD ---
HISTORYCOPDSTUDYCHEST, 1 [id number]/10/2023FINDINGSThe lungs are clear. No pneumothorax or significant effusion.Heart size is normal.Bones are unremarkable.IMPRESSION1. No significant abnormalityElectronically signed by: Natan Bueno (May 18, 2023 15:25:31)
[2023-05-18] MEDS: REGLAN TAB 10 MG PO SCH ×2 (16:55→20:48)
--- NOTE | 2023-05-18 18:05 | PCM.PROG ---
Progress Note - Progress Note for Day of Date of Exam: 05/18/23 - Subjective Subjective: PT IS 52 WF DIRECT ADMIT FROM DR STRAUSS OFFICE WITH COPD EXACERBATION WITH ACUTE BRONCHITIS, FAILED OUTPT THERAPY. PT IS CURRENTLY ON IV ATBX WITH DUO NEBS AND PRN SUPPLEMENTAL O2. PT CONTINUED WITH DIFFUSE EXPIRATORY WHEEZING ON EXAM THIS MORNING WITH IMPROVING PRODUCTIVE COUGH. PT CO VOMITING YESTERDAY AND THIS MORNING. PT HAS KNOWN GERD, LAST EDG PER DR CANELA. PT IS ON PPI THERAPY BID. WE WILL ADD REGLAN FOR SYMPTOM TREATMENT. PT CO LEFT SIDE CHEST PAIN ON AND OFF SINCE LAST NIGHT. PLAN TO CHECK CE AND EKG. - Past Medical Family Social History Past Med/Fam/Surg Hx: No changes since H&P Allergies: Allergies cyclobenzaprine [From Flexeril] Allergy (Verified 05/11/23 14:42) - Review of Systems ROS: No change since H&P - Vital Signs and I&O's Vital Signs: Vital Signs Temperature 98.1 F Temperature 97.0 F Pulse Rate [Left Brachial] 78 Pulse Rate [Left Brachial] 84 Respiratory Rate 18 Respiratory Rate 18 Blood Pressure [Right Arm] 117/62 Blood Pressure [Right Arm] 120/63 O2 Sat by Pulse Oximetry 93 O2 Sat by Pulse Oximetry 93 Intake and Output: Intake & Output 05/16/23 05/17/23 05/18/23 05/19/23 11:59 11:59 11:59 11:59 Intake Total 3299 / 3299 4116 / 4116 1760 / 1760 720 / 720 Balance 3299 / 3299 4116 / 4116 1760 / 1760 720 / 720 - Physical Exam Oriented: Normal Eyes: Normal Ear: Normal Nose: Normal Throat: Normal Respiratory: Wheezes Cardiovascular: Normal. negative: Edema Auscultation: Bowel Sounds: Normal Tenderness: Epigastric Skin: Decreased Turgur Musculoskeletal: Back:Lumbar Psychiatric: Anxiety Mood Description: Anxious Affect: Anxious Speech Pattern: Clear, Appropriate - Laboratory and Diagnostics Result Diagrams: 05/18/23 05:24 05/18/23 05:24 Labs: 05/11/23 15:42 Sputum - Expectorated Sputum Sputum Culture - Final 05/11/23 15:42 Sputum - Expectorated Sputum - Final Laboratory WBC 14.0 X10^3/uL (3.6-10.0) H 05/18/23 05:24 RBC 4.86 X10^6/uL (3.5-5.4) 05/18/23 05:24 Hgb 14.7 g/dL (12.0-16.0) 05/18/23 05:24 Hct 44.6 % (36.0-47.0) 05/18/23 05:24 MCV 91.8 fL (80.0-100.0) 05/18/23 05:24 MCH 30.2 pg (27.0-34.0) 05/18/23 05:24 MCHC 32.9 g/dL (33.0-35.0) L 05/18/23 05:24 RDW 14.3 % (11.6-16.5) 05/18/23 05:24 Plt Count 295 X10^3/uL (150.0-450.0) 05/18/23 05:24 Plt Count Comment Adequate (ADEQUATE) 05/16/23 06:15 MPV 7.7 fL (7.4-11.0) 05/18/23 05:24 Neut % (Auto) 61.9 % (42.0-75.0) 05/18/23 05:24 Lymph % (Auto) 28.7 % (21.0-51.0) 05/18/23 05:24 [place] % (Auto) 8.0 % (0.0-13.0) 05/18/23 05:24 Eos % (Auto) 1.2 % (0.9-2.9) 05/18/23 05:24 Baso % (Auto) 0.2 % (0.2-1.0) 05/18/23 05:24 Neut # (Auto) 8.6 x10^3/uL (2.2-4.8) H 05/18/23 05:24 Lymph # (Auto) 4.0 X10^3/uL (1.3-2.9) H 05/18/23 05:24 [place] # (Auto) 1.1 x10^3/uL (0.3-0.8) H 05/18/23 05:24 Eos # (Auto) 0.2 x10^3/uL (0.0-0.2) 05/18/23 05:24 Baso # (Auto) 0.0 X10^3/uL (0.0-0.1) 05/18/23 05:24 Absolute Nucleated RBC 0.1 /100WBC 05/18/23 05:24 Total Counted 100 05/16/23 06:15 Neutrophils % (Manual) 80 % (39-76) H 05/16/23 06:15 Lymphocytes % (Manual) 17 % (13-43) 05/16/23 06:15 Monocytes % (Manual) 3 % (4-9) L 05/16/23 06:15 Plt Clumps, EDTA Few 05/12/23 05:16 Plt Morphology Comment Normal (NORMAL) 05/16/23 06:15 RBC Morphology Normal (NORMAL) 05/16/23 06:15 Sample Site Rbra 05/11/23 13:35 ABG pH 7.470 (7.35-7.45) H 05/11/23 13:35 ABG pCO2 44.0 mmHg (35.0-45.0) 05/11/23 13:35 ABG pO2 70.0 mmHg (80.0-100.0) L 05/11/23 13:35 ABG HCO3 32.0 mmol/L (22-26) H* 05/11/23 13:35 ABG O2 Saturation 95.0 % (90-100) 05/11/23 13:35 ABG Base Excess 7.4 mmol/L (-2.0-2.0) H 05/11/23 13:35 Shahid Test Pos 05/11/23 13:35 A-a Gradient 25.0 mmHg 05/11/23 13:35 FiO2 21.0 05/11/23 13:35 Blood Gas Comments Pt rochelle well eb 05/11/23 13:35 Sodium 140 mmol/L (136-145) 05/18/23 05:24 Corrected Sodium TNP 05/18/23 05:24 Potassium 3.5 mmol/L (3.5-5.1) 05/18/23 05:24 Chloride 100 mmol/L (98-107) 05/18/23 05:24 Carbon Dioxide 36.3 mmol/L (21-32) H 05/18/23 05:24 BUN 15 mg/dL (7-18) 05/18/23 05:24 Creatinine 0.75 mg/dL (0.55-1.02) 05/18/23 05:24 Est GFR (MDRD) Af Amer > 60 (>60) 05/18/23 05:24 Est GFR (MDRD) Non-Af > 60 (>60) 05/18/23 05:24 Glucose 74 mg/dL (65-99) 05/18/23 05:24 Calcium 8.0 mg/dL (8.5-10.1) L 05/18/23 05:24 Corrected Calcium 9.0 mg/dL (8.5-10.1) 05/18/23 05:24 Magnesium 2.2 mg/dL (2.0-2.9) 05/14/23 05:15 Total Bilirubin 0.30 mg/dL (0.2-1.0) 05/18/23 05:24 AST 14 Units/L (15-37) L 05/18/23 05:24 ALT 28 Units/L (12-78) 05/18/23 05:24 Alkaline Phosphatase 81 Units/L (46-116) 05/18/23 05:24 Creatine Kinase 33 Units/L (26-192) 05/18/23 13:28 Troponin I High Sens 8.9 ng/L (4.0-60.0) 05/18/23 13:28 Total Protein 5.8 g/dL (6.4-8.2) L 05/18/23 05:24 Albumin 2.8 g/dL (3.4-5.0) L 05/18/23 05:24 Globulin 3.0 g/dL (2.5-4.5) 05/18/23 05:24 Albumin/Globulin Ratio 0.9 Ratio (1.1-2.1) L 05/18/23 05:24 SARS-CoV-2 (PCR) Negative (NEGATIVE) 05/12/23 03:00 Influenza Type A (PCR) Negative (NEGATIVE) 05/12/23 03:00 Influenza Type B (PCR) Negative (NEGATIVE) 05/12/23 03:00 RSV (PCR) Negative (NEGATIVE) 05/12/23 03:00 - Plan (1) Acute exacerbation of chronic obstructive pulmonary disease Status: Acute Plan: ABG AND SPUTUM CULTURE ON ADMISSION. IV ATBX AND GENTLE IV HYDRATION. HOME MEDICATION HAVE BEEN CONTINUED. BP CONTROL, RESP CONSULT & DUO NEBS (2) Hypertension Status: Acute (3) GERD with esophagitis Status: Acute (4) Chest pain Status: Acute
[2023-05-18] MEDS: ZyrTEC TAB 10 MG PO SCH (20:47)
[2023-05-18] MEDS: ZOCOR TAB 20 MG PO SCH (20:48)
[2023-05-18] MEDS: SINEquan PO SCH (20:48)
[2023-05-18] MEDS: NORVASC TAB 5 MG PO SCH (20:48)
[2023-05-19] MEDS: ZOFRAN TAB 4 MG SL PRN (02:03)
[2023-05-19] MEDS: ANTIVERT TAB 25 MG PO PRN (02:03)
[2023-05-19] MEDS: REGLAN TAB 10 MG PO SCH ×3 (05:33→16:00)
[2023-05-19] MEDS: CARAFATE ORAL SUSP PO SCH ×4 (05:33→20:18)
[2023-05-19 06:27] LABS: BASOPHILS % (AUTO) 0.1 % (0.2-1.0); EOSINOPHILS # (AUTO) 0.3 x10^3/uL (0.0-0.2); HEMATOCRIT 46.7 % (36.0-47.0); HEMOGLOBIN 15.1 g/dL (12.0-16.0); LYMPHOCYTES # (AUTO) 3.8 X10^3/uL (1.3-2.9); LYMPHOCYTES % (AUTO) 24.7 % (21.0-51.0); MEAN CORPUSCULAR HEMOGLOBIN 29.8 pg (27.0-34.0); MEAN CORPUSCULAR HGB CONC 32.2 g/dL (33.0-35.0); MEAN CORPUSCULAR VOLUME 92.6 fL (80.0-100.0); MEAN PLATELET VOLUME 7.7 fL (7.4-11.0); MONOCYTES # (AUTO) 1.3 x10^3/uL (0.3-0.8); MONOCYTES % (AUTO) 8.4 % (0.0-13.0); NEUTROPHILS # (AUTO) 9.9 x10^3/uL (2.2-4.8); NEUTROPHILS % (AUTO) 64.8 % (42.0-75.0); PLATELET COUNT 295 X10^3/uL (150.0-450.0); RED BLOOD COUNT 5.05 X10^6/uL (3.5-5.4); RED CELL DISTRIBUTION WIDTH 14.5 % (11.6-16.5); WHITE BLOOD COUNT 15.3 X10^3/uL (3.6-10.0)
[2023-05-19 06:53] LABS: ALANINE AMINOTRANSFERASE 34 Units/L (12-78); ALBUMIN 2.9 g/dL (3.4-5.0); ALKALINE PHOSPHATASE 92 Units/L (46-116); ASPARTATE AMINO TRANSFERASE 14 Units/L (15-37); BLOOD UREA NITROGEN 16 mg/dL (7-18); CALCIUM 8.7 mg/dL (8.5-10.1); CHLORIDE 102 mmol/L (98-107); COR CA(FOR HYPOALB) 9.6 mg/dL (8.5-10.1); CREATININE 0.91 mg/dL (0.55-1.02); GLUCOSE 82 mg/dL (65-99); POTASSIUM 4.9 mmol/L (3.5-5.1); SODIUM 142 mmol/L (136-145); eGFR NON BLACK RACES > 60 (>60)
[2023-05-19] MEDS: NORCO 7.5/325 MG TAB PO PRN ×2 (07:36→19:16)
[2023-05-19] MEDS: DUONEB 0.5 MG/3 MG (3 mL) NEB SCH ×4 (08:31→20:35)
[2023-05-19] MEDS: PULMICORT NEB TX 0.5 MG NEB SCH ×2 (08:31→20:35)
[2023-05-19 09:31] LABS: ABG BASE EXCESS 12.3 mmol/L (-2.0-2.0)
[2023-05-19 09:32] LABS: ABG ALLEN TEST POS; ABG HCO3 38.7 mmol/L (22-26)
[2023-05-19] MEDS: NICOTINE PATCH TD SCH (09:43)
[2023-05-19] MEDS: REQUIP PO SCH ×2 (09:44→20:18)
[2023-05-19] MEDS: ASPIRIN EC 81 MG PO SCH (09:44)
[2023-05-19] MEDS: SINGULAIR TAB 10 MG PO SCH (09:44)
[2023-05-19] MEDS: NYSTATIN SUSP PO SCH ×4 (09:44→20:18)
[2023-05-19] MEDS: PEPCID TAB 40 MG PO SCH ×2 (09:44→20:18)
[2023-05-19] MEDS: EFFEXOR XR 75 MG CAP 24-HR PO SCH (09:44)
[2023-05-19] MEDS: LOVENOX INJ 40 MG SYR SC SCH (09:45)
[2023-05-19] MEDS: DIFLUCAN PO SCH (09:45)
[2023-05-19] MEDS: COZAAR PO SCH (09:45)
[2023-05-19] MEDS: ROBITUSSIN DM PO SCH ×4 (09:45→20:18)
[2023-05-19] MEDS: MAG-OX TAB PO SCH ×2 (11:05→20:19)
[2023-05-19] MEDS ORDERED: NS 100 ML IV 100 ML ONE (11:37)
[2023-05-19] MEDS: LEVAQUIN PREMIX IV 500 MG 500 MG/100 ML BAG IV SCH (11:43)
--- NOTE | 2023-05-19 15:53 | CT ---
BRAIN W/O CONHistory: CONFUSION/AMSTechnique: CT images of the brain were obtained without contrast. Reformatted images in the coronal and sagittal planes also generated for review. Automatic exposure was utilized.Comparison: None availableFindings: Partially empty sella is incidentally noted. Buck-white differentiation is maintained. No visible acute infarction is identified. If clinical concern for acute ischemia remains high and would make a clinical difference to diagnose stroke now, consider MRI for further evaluation. There is no intracranial hemorrhage, extra-axial collection, hydrocephalus, mass or midline shift. The visualized paranasal sinuses and mastoid air cells are predominantly clear. Imaged extracranial structures are grossly unremarkable.Impression:No acute intracranial abnormality.Electronically signed by: AISHA SANTIAGO (May 19, 2023 15:51:50)
--- NOTE | 2023-05-19 17:59 | PCM.PROG ---
Progress Note - Subjective Subjective: PT IS 52 WF DIRECT ADMIT FROM DR STRAUSS OFFICE WITH COPD EXACERBATION WITH ACUTE BRONCHITIS, FAILED OUTPT THERAPY. PT IS CURRENTLY ON IV ATBX WITH DUO NEBS AND PRN SUPPLEMENTAL O2. PT CONTINUED WITH DIFFUSE EXPIRATORY WHEEZING ON EXAM THIS MORNING WITH IMPROVING PRODUCTIVE COUGH. PT CO VOMITING YESTERDAY AND THIS MORNING. PT HAS KNOWN GERD, LAST EDG PER DR CANELA. PT IS ON PPI THERAPY BID. PT WAS STARTED ON REGLAN AC/HS AND DENIES VOMITING THIS MORNING, BUT PT STATES SHE HAS NOT ATE MUCH. PT'S ABG REVIEWED WITH INCREASE IN PCO2. PT HAS CPAP AT HOME AND WE REQUEST SHE HAVE FAMILY BRING IT FOR HER TO USE. PT CO PATTON AND RIGHT FACE AND ARM "FEELS FUNNY" CT BRAIN ORDERED STAT. PT HAD NO NEUROFOCAL DEFICITS ON PE. PT'S EKG AND CARDIAC ENZYMES WERE STABLE. PT BE BE NPO AFTER MIDNIGHT FOR GI EVALUATION. - Past Medical Family Social History Past Med/Fam/Surg Hx: No changes since H&P Allergies: Allergies cyclobenzaprine [From Flexeril] Allergy (Verified 05/11/23 14:42) - Review of Systems ROS: No change since H&P - Vital Signs and I&O's Vital Signs: Vital Signs Temperature 97.7 F Temperature 97.6 F Pulse Rate [Left Brachial] 86 Pulse Rate [Left Brachial] 76 Respiratory Rate 18 Respiratory Rate 18 Blood Pressure [Right Arm] 109/67 Blood Pressure [Right Arm] 108/57 O2 Sat by Pulse Oximetry 96 O2 Sat by Pulse Oximetry 96 Intake and Output: Intake & Output 05/17/23 05/18/23 05/19/23 05/20/23 11:59 11:59 11:59 11:59 Intake Total 4116 / 4116 2200 / 2200 950 / 950 840 / 840 Balance 4116 / 4116 2200 / 2200 950 / 950 840 / 840 - Physical Exam Oriented: Normal Eyes: Normal Ear: Normal Nose: Normal Throat: Normal Respiratory: Wheezes, Rhonchi Cardiovascular: Normal. negative: Edema Auscultation: Bowel Sounds: Normal Tenderness: Epigastric Skin: Decreased Turgur Musculoskeletal: Back:Lumbar Psychiatric: Anxiety Mood Description: Anxious Affect: Anxious Speech Pattern: Clear, Appropriate - Laboratory and Diagnostics Result Diagrams: 05/19/23 05:25 05/19/23 05:25 Labs: 05/11/23 15:42 Sputum - Expectorated Sputum Sputum Culture - Final 05/11/23 15:42 Sputum - Expectorated Sputum - Final Laboratory WBC 15.3 X10^3/uL (3.6-10.0) H 05/19/23 05:25 RBC 5.05 X10^6/uL (3.5-5.4) 05/19/23 05:25 Hgb 15.1 g/dL (12.0-16.0) 05/19/23 05:25 Hct 46.7 % (36.0-47.0) 05/19/23 05:25 MCV 92.6 fL (80.0-100.0) 05/19/23 05:25 MCH 29.8 pg (27.0-34.0) 05/19/23 05:25 MCHC 32.2 g/dL (33.0-35.0) L 05/19/23 05:25 RDW 14.5 % (11.6-16.5) 05/19/23 05:25 Plt Count 295 X10^3/uL (150.0-450.0) 05/19/23 05:25 Plt Count Comment Adequate (ADEQUATE) 05/16/23 06:15 MPV 7.7 fL (7.4-11.0) 05/19/23 05:25 Neut % (Auto) 64.8 % (42.0-75.0) 05/19/23 05:25 Lymph % (Auto) 24.7 % (21.0-51.0) 05/19/23 05:25 [place] % (Auto) 8.4 % (0.0-13.0) 05/19/23 05:25 Eos % (Auto) 2.0 % (0.9-2.9) 05/19/23 05:25 Baso % (Auto) 0.1 % (0.2-1.0) L 05/19/23 05:25 Neut # (Auto) 9.9 x10^3/uL (2.2-4.8) H 05/19/23 05:25 Lymph # (Auto) 3.8 X10^3/uL (1.3-2.9) H 05/19/23 05:25 [place] # (Auto) 1.3 x10^3/uL (0.3-0.8) H 05/19/23 05:25 Eos # (Auto) 0.3 x10^3/uL (0.0-0.2) H 05/19/23 05:25 Baso # (Auto) 0.0 X10^3/uL (0.0-0.1) 05/19/23 05:25 Absolute Nucleated RBC 0.0 /100WBC 05/19/23 05:25 Total Counted 100 05/16/23 06:15 Neutrophils % (Manual) 80 % (39-76) H 05/16/23 06:15 Lymphocytes % (Manual) 17 % (13-43) 05/16/23 06:15 Monocytes % (Manual) 3 % (4-9) L 05/16/23 06:15 Plt Clumps, EDTA Few 05/12/23 05:16 Plt Morphology Comment Normal (NORMAL) 05/16/23 06:15 RBC Morphology Normal (NORMAL) 05/16/23 06:15 D-Dimer < 0.27 ug/ml (0.0-0.57) 05/19/23 13:33 Sample Site Lrad 05/19/23 09:25 ABG pH 7.440 (7.35-7.45) 05/19/23 09:25 ABG pCO2 57.0 mmHg (35.0-45.0) H* 05/19/23 09:25 ABG pO2 51.0 mmHg (80.0-100.0) L 05/19/23 09:25 ABG HCO3 38.7 mmol/L (22-26) H* 05/19/23 09:25 ABG O2 Saturation 87.0 % (90-100) L 05/19/23 09:25 ABG Base Excess 12.3 mmol/L (-2.0-2.0) H 05/19/23 09:25 Shahid Test Pos 05/19/23 09:25 A-a Gradient 27.0 mmHg 05/19/23 09:25 FiO2 21.0 05/19/23 09:25 Blood Gas Comments Roxana well ms/eb 05/19/23 09:25 Sodium 142 mmol/L (136-145) 05/19/23 05:25 Corrected Sodium TNP 05/19/23 05:25 Potassium 4.9 mmol/L (3.5-5.1) 05/19/23 05:25 Chloride 102 mmol/L (98-107) 05/19/23 05:25 Carbon Dioxide 38.0 mmol/L (21-32) H 05/19/23 05:25 BUN 16 mg/dL (7-18) 05/19/23 05:25 Creatinine 0.91 mg/dL (0.55-1.02) 05/19/23 05:25 Est GFR (MDRD) Af Amer > 60 (>60) 05/19/23 05:25 Est GFR (MDRD) Non-Af > 60 (>60) 05/19/23 05:25 Glucose 82 mg/dL (65-99) 05/19/23 05:25 Calcium 8.7 mg/dL (8.5-10.1) 05/19/23 05:25 Corrected Calcium 9.6 mg/dL (8.5-10.1) 05/19/23 05:25 Magnesium 2.2 mg/dL (2.0-2.9) 05/14/23 05:15 Total Bilirubin 0.40 mg/dL (0.2-1.0) 05/19/23 05:25 AST 14 Units/L (15-37) L 05/19/23 05:25 ALT 34 Units/L (12-78) 05/19/23 05:25 Alkaline Phosphatase 92 Units/L (46-116) 05/19/23 05:25 Creatine Kinase 33 Units/L (26-192) 05/18/23 13:28 Troponin I High Sens 8.9 ng/L (4.0-60.0) 05/18/23 13:28 Total Protein 6.0 g/dL (6.4-8.2) L 05/19/23 05:25 Albumin 2.9 g/dL (3.4-5.0) L 05/19/23 05:25 Globulin 3.1 g/dL (2.5-4.5) 05/19/23 05:25 Albumin/Globulin Ratio 0.9 Ratio (1.1-2.1) L 05/19/23 05:25 SARS-CoV-2 (PCR) Negative (NEGATIVE) 05/12/23 03:00 Influenza Type A (PCR) Negative (NEGATIVE) 05/12/23 03:00 Influenza Type B (PCR) Negative (NEGATIVE) 05/12/23 03:00 RSV (PCR) Negative (NEGATIVE) 05/12/23 03:00 - Plan (1) Acute exacerbation of chronic obstructive pulmonary disease Status: Acute Plan: ABG AND SPUTUM CULTURE ON ADMISSION. IV ATBX AND GENTLE IV HYDRATION. HOME MEDICATION HAVE BEEN CONTINUED. BP CONTROL, RESP CONSULT & DUO NEBS (2) GERD with esophagitis Status: Acute (3) Hypertension Status: Acute (4) Chest pain Status: Acute
[2023-05-19] MEDS: SINEquan PO SCH (20:18)
[2023-05-19] MEDS: ZOCOR TAB 20 MG PO SCH (20:18)
[2023-05-19] MEDS: ZyrTEC TAB 10 MG PO SCH (20:19)
[2023-05-19] MEDS: NORVASC TAB 5 MG PO SCH (20:19)
[2023-05-20] MEDS: CARAFATE ORAL SUSP PO SCH ×2 (05:44→13:10)
[2023-05-20 06:04] LABS: ABG BASE EXCESS 12.1 mmol/L (-2.0-2.0)
[2023-05-20 06:06] LABS: ABG HCO3 38.9 mmol/L (22-26)
[2023-05-20 06:25] LABS: BASOPHILS % (AUTO) 0.3 % (0.2-1.0); EOSINOPHILS # (AUTO) 0.4 x10^3/uL (0.0-0.2); EOSINOPHILS % (AUTO) 2.6 % (0.9-2.9); HEMATOCRIT 44.5 % (36.0-47.0); HEMOGLOBIN 14.5 g/dL (12.0-16.0); LYMPHOCYTES # (AUTO) 3.7 X10^3/uL (1.3-2.9); LYMPHOCYTES % (AUTO) 25.6 % (21.0-51.0); MEAN CORPUSCULAR HEMOGLOBIN 30.1 pg (27.0-34.0); MEAN CORPUSCULAR HGB CONC 32.5 g/dL (33.0-35.0); MEAN CORPUSCULAR VOLUME 92.4 fL (80.0-100.0); MEAN PLATELET VOLUME 7.8 fL (7.4-11.0); MONOCYTES # (AUTO) 1.2 x10^3/uL (0.3-0.8); MONOCYTES % (AUTO) 8.2 % (0.0-13.0); NEUTROPHILS # (AUTO) 9.2 x10^3/uL (2.2-4.8); NEUTROPHILS % (AUTO) 63.3 % (42.0-75.0); PLATELET COUNT 289 X10^3/uL (150.0-450.0); RED BLOOD COUNT 4.81 X10^6/uL (3.5-5.4); RED CELL DISTRIBUTION WIDTH 14.1 % (11.6-16.5); WHITE BLOOD COUNT 14.6 X10^3/uL (3.6-10.0)
[2023-05-20 06:39] LABS: ALANINE AMINOTRANSFERASE 37 Units/L (12-78); ALBUMIN 2.7 g/dL (3.4-5.0); ALKALINE PHOSPHATASE 87 Units/L (46-116); ASPARTATE AMINO TRANSFERASE 16 Units/L (15-37); BLOOD UREA NITROGEN 12 mg/dL (7-18); CALCIUM 8.2 mg/dL (8.5-10.1); CARBON DIOXIDE 35.8 mmol/L (21-32); CHLORIDE 101 mmol/L (98-107); COR CA(FOR HYPOALB) 9.2 mg/dL (8.5-10.1); CREATININE 0.84 mg/dL (0.55-1.02); GLUCOSE 89 mg/dL (65-99); POTASSIUM 4.1 mmol/L (3.5-5.1); SODIUM 139 mmol/L (136-145); TOTAL PROTEIN 5.8 g/dL (6.4-8.2); eGFR NON BLACK RACES > 60 (>60)
[2023-05-20] MEDS: PULMICORT NEB TX 0.5 MG NEB SCH (08:08)
[2023-05-20] MEDS: DUONEB 0.5 MG/3 MG (3 mL) NEB SCH ×2 (08:08→13:50)
[2023-05-20] MEDS ORDERED: TORADOL 30 MG VIAL IVP ONE (08:55)
[2023-05-20] MEDS ORDERED: COZAAR PO SCH (09:00)
[2023-05-20] MEDS: NICOTINE PATCH TD SCH (09:21)
[2023-05-20] MEDS: LEVAQUIN PREMIX IV 500 MG 500 MG/100 ML BAG IV SCH (09:21)
[2023-05-20 09:22] VITALS: RESP 18
[2023-05-20] MEDS ORDERED: DIPRIVAN VIAL 0 ML ONE (09:26)
[2023-05-20] MEDS ORDERED: NS 1,000 ML IV 1,000 ML ONE (11:50)
[2023-05-20] MEDS ORDERED: DIPRIVAN VIAL 20 ML ONE (11:54)
[2023-05-20] MEDS: LOVENOX INJ 40 MG SYR SC SCH (13:07)
[2023-05-20] MEDS: ROBITUSSIN DM PO SCH ×2 (13:08→13:10)
[2023-05-20] MEDS: NYSTATIN SUSP PO SCH ×2 (13:08→13:10)
[2023-05-20] MEDS: PEPCID TAB 40 MG PO SCH (13:10)
[2023-05-20] MEDS: REQUIP PO SCH (13:10)
[2023-05-20] MEDS: DIFLUCAN PO SCH (13:11)
[2023-05-20] MEDS: ASPIRIN EC 81 MG PO SCH (13:11)
[2023-05-20] MEDS: EFFEXOR XR 75 MG CAP 24-HR PO SCH (13:11)
[2023-05-20] MEDS: SINGULAIR TAB 10 MG PO SCH (13:11)
[2023-05-20] MEDS: MAG-OX TAB PO SCH (13:14)
[2023-05-20 14:42] VITALS: BP 128/55; PULSE 85; TEMP 99.2; O2SAT 97
[2023-05-20] MEDS ORDERED: PROTONIX INJ 40 MG VIAL IVP SCH (21:00)
== END 2023-05-20 16:30 | disposition home or self-care (01) | DRG 190 ==
LOC: MED/SURG
PROVIDERS: ADMIT Internal Medicine; ATTEND Internal Medicine

== ENCOUNTER 2023-08-11 12:33 | Inpatient (IN) ==
[2023-08-11] MEDS ORDERED: PATIENT'S HOME MEDICATION (Fluticasone-Umeclidin-Vilanter [Trelegy Ellipta] 200-62.5-25 mc IN SCH (13:30)
[2023-08-11 13:49] LABS: ABG ALLEN TEST POS; ABG HCO3 26.5 mmol/L (22-26)
[2023-08-11 13:51] LABS: BASOPHILS # (AUTO) 0.1 X10^3/uL (0.0-0.1); BASOPHILS % (AUTO) 1.5 % (0.2-1.0); EOSINOPHILS # (AUTO) 0.2 x10^3/uL (0.0-0.2); EOSINOPHILS % (AUTO) 2.9 % (0.9-2.9); HEMOGLOBIN 15.5 g/dL (12.0-16.0); LYMPHOCYTES # (AUTO) 1.7 X10^3/uL (1.3-2.9); LYMPHOCYTES % (AUTO) 26.4 % (21.0-51.0); MEAN CORPUSCULAR HEMOGLOBIN 31.3 pg (27.0-34.0); MEAN CORPUSCULAR HGB CONC 32.9 g/dL (33.0-35.0); MEAN CORPUSCULAR VOLUME 95.2 fL (80.0-100.0); MEAN PLATELET VOLUME 8.1 fL (7.4-11.0); MONOCYTES # (AUTO) 0.7 x10^3/uL (0.3-0.8); MONOCYTES % (AUTO) 11.3 % (0.0-13.0); NEUTROPHILS # (AUTO) 3.8 x10^3/uL (2.2-4.8); NEUTROPHILS % (AUTO) 57.9 % (42.0-75.0); PLATELET COUNT 290 X10^3/uL (150.0-450.0); RED BLOOD COUNT 4.94 X10^6/uL (3.5-5.4); RED CELL DISTRIBUTION WIDTH 13.6 % (11.6-16.5); WHITE BLOOD COUNT 6.6 X10^3/uL (3.6-10.0)
[2023-08-11 14:07] LABS: ALANINE AMINOTRANSFERASE 48 Units/L (12-78); ALBUMIN 3.1 g/dL (3.4-5.0); ALKALINE PHOSPHATASE 119 Units/L (46-116); ASPARTATE AMINO TRANSFERASE 30 Units/L (15-37); BLOOD UREA NITROGEN 10 mg/dL (7-18); CALCIUM 8.5 mg/dL (8.5-10.1); CARBON DIOXIDE 30.7 mmol/L (21-32); CHLORIDE 99 mmol/L (98-107); COR CA(FOR HYPOALB) 9.2 mg/dL (8.5-10.1); COR NA(FOR HYPERGLY) 133 mmol/L (136-145); GLUCOSE 157 mg/dL (65-99); POTASSIUM 3.5 mmol/L (3.5-5.1); SODIUM 132 mmol/L (136-145); eGFR NON BLACK RACES > 60 (>60)
[2023-08-11 14:52] VITALS: BMI 45.1
--- NOTE | 2023-08-11 15:15 | RAD ---
EXAM:CHEST, 1 VIEWHISTORY:SOB, WHEEZING, COPD;COMPARISON:05/18/2023 and other studiesTECHNIQUE:CHEST, 1 VIEWFINDINGS:Lines and tubes: NoneMediastinum:The cardiomediastinal silhouette is within normal limits for size and contour.Pulmonary vasculature:No pulmonary vascular congestionLung vital: No suspicious airspace opacities.Pleura:No effusion or pneumothorax.Bones and soft tissues:No acute osseous or soft tissue abnormality.IMPRESSION:1. No acute cardiopulmonary abnormalityTHIS IS AN ELECTRONICALLY VERIFIED FINAL [id number] 3:12 PM - Electronically signed by Jorge Hinton MD
[2023-08-11] MEDS: NS 1,000 ML IV 1,000 ML IV SCH (16:18)
[2023-08-11] MEDS: ROBITUSSIN DM PO SCH ×2 (16:19→20:36)
[2023-08-11] MEDS: ZITHROMAX INJ 500 MG VIAL 500 MG in NS 250 ML IV 250 ML IV SCH (16:19)
[2023-08-11] MEDS: DUONEB 0.5 MG/3 MG (3 mL) NEB SCH ×2 (16:26→20:15)
[2023-08-11] MEDS: PULMICORT NEB TX 0.5 MG NEB SCH (20:15)
[2023-08-11] MEDS: PROTONIX INJ 40 MG VIAL IVP SCH (20:37)
[2023-08-11] MEDS: NORVASC TAB 5 MG PO SCH (20:37)
[2023-08-11] MEDS: REQUIP PO SCH (20:37)
[2023-08-11] MEDS: ZyrTEC TAB 10 MG PO SCH (20:37)
[2023-08-11] MEDS: SOLU-Medrol 40 MG VIAL IVP SCH (20:38)
[2023-08-11] MEDS: SINEquan PO SCH (21:10)
[2023-08-11] MEDS: TUSSIONEX PENNKINETIC SUSP PO PRN (21:19)
[2023-08-12] MEDS ORDERED: TYLENOL 325 MG TAB PO PRN (03:04)
[2023-08-12] MEDS: NS 1,000 ML IV 1,000 ML IV SCH ×2 (05:24→17:00)
[2023-08-12] MEDS: TUSSIONEX PENNKINETIC SUSP PO PRN ×2 (05:24→14:47)
[2023-08-12 05:29] LABS: BASOPHILS % (AUTO) 0.5 % (0.2-1.0); HEMATOCRIT 46.6 % (36.0-47.0); HEMOGLOBIN 15.3 g/dL (12.0-16.0); LYMPHOCYTES # (AUTO) 1.1 X10^3/uL (1.3-2.9); LYMPHOCYTES % (AUTO) 15.2 % (21.0-51.0); MEAN CORPUSCULAR HEMOGLOBIN 31.4 pg (27.0-34.0); MEAN CORPUSCULAR HGB CONC 32.9 g/dL (33.0-35.0); MEAN CORPUSCULAR VOLUME 95.3 fL (80.0-100.0); MEAN PLATELET VOLUME 8.4 fL (7.4-11.0); MONOCYTES # (AUTO) 0.1 x10^3/uL (0.3-0.8); MONOCYTES % (AUTO) 1.7 % (0.0-13.0); NEUTROPHILS % (AUTO) 82.6 % (42.0-75.0); PLATELET COUNT 319 X10^3/uL (150.0-450.0); RED BLOOD COUNT 4.88 X10^6/uL (3.5-5.4); RED CELL DISTRIBUTION WIDTH 13.7 % (11.6-16.5); WHITE BLOOD COUNT 7.3 X10^3/uL (3.6-10.0)
[2023-08-12 05:47] LABS: ALANINE AMINOTRANSFERASE 53 Units/L (12-78); ALBUMIN 3.1 g/dL (3.4-5.0); ALKALINE PHOSPHATASE 115 Units/L (46-116); ASPARTATE AMINO TRANSFERASE 28 Units/L (15-37); BLOOD UREA NITROGEN 7 mg/dL (7-18); CALCIUM 8.3 mg/dL (8.5-10.1); CARBON DIOXIDE 29.3 mmol/L (21-32); CHLORIDE 101 mmol/L (98-107); COR NA(FOR HYPERGLY) 137 mmol/L (136-145); CREATININE 0.68 mg/dL (0.55-1.02); GLUCOSE 151 mg/dL (65-99); POTASSIUM 4.7 mmol/L (3.5-5.1); SODIUM 136 mmol/L (136-145); eGFR NON BLACK RACES > 60 (>60)
[2023-08-12] MEDS: PULMICORT NEB TX 0.5 MG NEB SCH ×3 (08:22→21:00)
[2023-08-12] MEDS: DUONEB 0.5 MG/3 MG (3 mL) NEB SCH ×5 (08:22→21:00)
[2023-08-12] MEDS: PROTONIX INJ 40 MG VIAL IVP SCH ×2 (09:04→20:19)
[2023-08-12] MEDS: ROBITUSSIN DM PO SCH ×4 (09:05→20:19)
[2023-08-12] MEDS: ZITHROMAX INJ 500 MG VIAL 500 MG in NS 250 ML IV 250 ML IV SCH (09:05)
[2023-08-12] MEDS: SOLU-Medrol 40 MG VIAL IVP SCH ×3 (09:05→21:26)
[2023-08-12] MEDS: COZAAR PO SCH (09:06)
[2023-08-12] MEDS: REQUIP PO SCH ×2 (09:06→20:18)
[2023-08-12] MEDS: EFFEXOR XR 75 MG CAP 24-HR PO SCH ×2 (09:07→09:12)
[2023-08-12] MEDS: LOVENOX INJ 40 MG SYR SC SCH (10:28)
--- NOTE | 2023-08-12 17:53 | PCM.PROG ---
Progress Note Progress Note for Day of Date of Exam: 08/12/23 Subjective Subjective: PT IS 53 WF ADMITTED WITH AB, COPD EXACERBATION. PT HAS BEEN ON IV ATBX SINCE ADMISSION AND IV SOLU MEDROL. A SPUTUM WAS COLLECTED ON ADMISSION. PT WAS NEGATIVE FOR RSV, FLU AND COVID ON RESP PANEL. PT CONTINUES WITH SEVERE COUGHING SPELLS AND DIFFUSE EXPIRATORY WHEEZING. PLAN TO INCREASE SOLU MEDROL TO Q 8HRS AND REPEAT AM CHEST XRAY. PT ENCOURAGED PULMONARY TOILETING AND INCREASE PO HYDRATION. BP STABLE ON MEDICATION REGIMEN. Past Medical Family Social History Allergies: Allergies cyclobenzaprine [From Flexeril] Allergy (Verified 05/11/23 14:42) Vital Signs and I&O's Vital Signs: Vital Signs Temperature 98.2 F Temperature 98.3 F Pulse Rate [Bilateral Radial] 112 Pulse Rate [Bilateral Radial] 100 Respiratory Rate 20 Respiratory Rate 20 Blood Pressure [Right Arm] 141/63 Blood Pressure [Right Arm] 129/73 O2 Sat by Pulse Oximetry 97 O2 Sat by Pulse Oximetry 92 Intake and Output: Intake & Output 08/10/23 08/11/23 08/12/23 08/13/23 11:59 11:59 11:59 11:59 Intake Total 3347 / 3347 1350 / 1350 Balance 3347 / 3347 1350 / 1350 Physical Exam Oriented: Normal Eyes: Normal Ear: Normal Nose: Injected and Discharge Throat: Red and Exudate Respiratory: Diminished, Wheezes and Rhonchi Cardiovascular: Normal : Normal Auscultation: Bowel Sounds: Normal Tenderness: Normal Skin: Normal Musculoskeletal: Back:Lumbar and Back:Midline Psychiatric: Anxiety Affect: Anxious Speech Pattern: Clear and Appropriate Laboratory and Diagnostics 08/12/23 04:41 08/12/23 04:41 Labs: 08/11/23 20:40 Sputum - Expectorated Sputum Sputum Culture - Preliminary 08/11/23 20:40 Sputum - Expectorated Sputum - Final Laboratory WBC 7.3 X10^3/uL (3.6-10.0) 08/12/23 04:41 RBC 4.88 X10^6/uL (3.5-5.4) 08/12/23 04:41 Hgb 15.3 g/dL (12.0-16.0) 08/12/23 04:41 Hct 46.6 % (36.0-47.0) 08/12/23 04:41 MCV 95.3 fL (80.0-100.0) 08/12/23 04:41 MCH 31.4 pg (27.0-34.0) 08/12/23 04:41 MCHC 32.9 g/dL (33.0-35.0) L 08/12/23 04:41 RDW 13.7 % (11.6-16.5) 08/12/23 04:41 Plt Count 319 X10^3/uL (150.0-450.0) 08/12/23 04:41 MPV 8.4 fL (7.4-11.0) 08/12/23 04:41 Neut % (Auto) 82.6 % (42.0-75.0) H 08/12/23 04:41 Lymph % (Auto) 15.2 % (21.0-51.0) L 08/12/23 04:41 [place] % (Auto) 1.7 % (0.0-13.0) 08/12/23 04:41 Eos % (Auto) 0.0 % (0.9-2.9) L 08/12/23 04:41 Baso % (Auto) 0.5 % (0.2-1.0) 08/12/23 04:41 Neut # (Auto) 6.0 x10^3/uL (2.2-4.8) H 08/12/23 04:41 Lymph # (Auto) 1.1 X10^3/uL (1.3-2.9) L 08/12/23 04:41 [place] # (Auto) 0.1 x10^3/uL (0.3-0.8) L 08/12/23 04:41 Eos # (Auto) 0.0 x10^3/uL (0.0-0.2) 08/12/23 04:41 Baso # (Auto) 0.0 X10^3/uL (0.0-0.1) 08/12/23 04:41 Absolute Nucleated RBC 0.1 /100WBC 08/12/23 04:41 Sample Site Lrad 08/11/23 13:22 ABG pH 7.430 (7.35-7.45) 08/11/23 13:22 ABG pCO2 40.0 mmHg (35.0-45.0) 08/11/23 13:22 ABG pO2 92.0 mmHg (80.0-100.0) 08/11/23 13:22 ABG HCO3 26.5 mmol/L (22-26) H 08/11/23 13:22 ABG O2 Saturation 97.0 % (90-100) 08/11/23 13:22 ABG Base Excess 2.0 mmol/L (-2.0-2.0) 08/11/23 13:22 Shahid Test Pos 08/11/23 13:22 A-a Gradient 8.0 mmHg 08/11/23 13:22 FiO2 21.0 08/11/23 13:22 Blood Gas Comments Roxana well s/d 08/11/23 13:22 Sodium 136 mmol/L (136-145) 08/12/23 04:41 Corrected Sodium 137 mmol/L (136-145) 08/12/23 04:41 Potassium 4.7 mmol/L (3.5-5.1) 08/12/23 04:41 Chloride 101 mmol/L (98-107) 08/12/23 04:41 Carbon Dioxide 29.3 mmol/L (21-32) 08/12/23 04:41 BUN 7 mg/dL (7-18) 08/12/23 04:41 Creatinine 0.68 mg/dL (0.55-1.02) 08/12/23 04:41 Est GFR (MDRD) Af Amer > 60 (>60) 08/12/23 04:41 Est GFR (MDRD) Non-Af > 60 (>60) 08/12/23 04:41 Glucose 151 mg/dL (65-99) H 08/12/23 04:41 Calcium 8.3 mg/dL (8.5-10.1) L 08/12/23 04:41 Corrected Calcium 9.0 mg/dL (8.5-10.1) 08/12/23 04:41 Magnesium 2.0 mg/dL (2.0-2.9) 08/12/23 04:41 Total Bilirubin 0.20 mg/dL (0.2-1.0) 08/12/23 04:41 AST 28 Units/L (15-37) 08/12/23 04:41 ALT 53 Units/L (12-78) 08/12/23 04:41 Alkaline Phosphatase 115 Units/L (46-116) 08/12/23 04:41 Total Protein 7.0 g/dL (6.4-8.2) 08/12/23 04:41 Albumin 3.1 g/dL (3.4-5.0) L 08/12/23 04:41 Globulin 3.9 g/dL (2.5-4.5) 08/12/23 04:41 Albumin/Globulin Ratio 0.8 Ratio (1.1-2.1) L 08/12/23 04:41 SARS-CoV-2 (PCR) Negative (NEGATIVE) 08/11/23 14:10 Influenza Type A (PCR) Negative (NEGATIVE) 08/11/23 14:10 Influenza Type B (PCR) Negative (NEGATIVE) 08/11/23 14:10 RSV (PCR) Negative (NEGATIVE) 08/11/23 14:10 Plan (1) Acute exacerbation of chronic obstructive pulmonary disease: Status: Acute Narrative Support Text: IV HYDRATION, IV ATBX, IV SOLU MEDROL SUPPLEMENTAL O2 CULTURES OBTAINED ON ADMISSION BP CONTROL, REPEAT AM LABS AND CXR (2) Hypertension: Status: Acute (3) GERD with esophagitis: Status: Acute (4) NATALEE (generalized anxiety disorder): Status: Acute (5) Degenerative lumbar spinal stenosis: Status: Acute
[2023-08-12] MEDS: ZyrTEC TAB 10 MG PO SCH (20:19)
[2023-08-12] MEDS: NORVASC TAB 5 MG PO SCH (20:19)
[2023-08-12] MEDS: SINEquan PO SCH (20:26)
[2023-08-12] MEDS: NORCO 5/325 MG TAB PO PRN (22:29)
[2023-08-13] MEDS: SOLU-Medrol 40 MG VIAL IVP SCH ×3 (05:00→22:33)
[2023-08-13] MEDS: NS 1,000 ML IV 1,000 ML IV SCH ×3 (05:00→20:30)
[2023-08-13 06:12] LABS: BASOPHILS % (AUTO) 0.1 % (0.2-1.0); HEMATOCRIT 45.4 % (36.0-47.0); HEMOGLOBIN 14.7 g/dL (12.0-16.0); LYMPHOCYTES % (AUTO) 11.1 % (21.0-51.0); MEAN CORPUSCULAR HGB CONC 32.3 g/dL (33.0-35.0); MEAN CORPUSCULAR VOLUME 95.9 fL (80.0-100.0); MEAN PLATELET VOLUME 8.4 fL (7.4-11.0); MONOCYTES # (AUTO) 0.6 x10^3/uL (0.3-0.8); MONOCYTES % (AUTO) 3.6 % (0.0-13.0); NEUTROPHILS # (AUTO) 15.2 x10^3/uL (2.2-4.8); NEUTROPHILS % (AUTO) 85.2 % (42.0-75.0); PLATELET COUNT 341 X10^3/uL (150.0-450.0); RED BLOOD COUNT 4.73 X10^6/uL (3.5-5.4); RED CELL DISTRIBUTION WIDTH 13.5 % (11.6-16.5); WHITE BLOOD COUNT 17.9 X10^3/uL (3.6-10.0)
[2023-08-13 06:29] LABS: ALANINE AMINOTRANSFERASE 38 Units/L (12-78); ALKALINE PHOSPHATASE 102 Units/L (46-116); ASPARTATE AMINO TRANSFERASE 13 Units/L (15-37); BLOOD UREA NITROGEN 8 mg/dL (7-18); CALCIUM 8.5 mg/dL (8.5-10.1); CARBON DIOXIDE 29.1 mmol/L (21-32); CHLORIDE 103 mmol/L (98-107); COR CA(FOR HYPOALB) 9.3 mg/dL (8.5-10.1); COR NA(FOR HYPERGLY) 139 mmol/L (136-145); CREATININE 0.55 mg/dL (0.55-1.02); GLUCOSE 131 mg/dL (65-99); POTASSIUM 4.1 mmol/L (3.5-5.1); SODIUM 138 mmol/L (136-145); TOTAL PROTEIN 6.8 g/dL (6.4-8.2); eGFR NON BLACK RACES > 60 (>60)
[2023-08-13] MEDS: DUONEB 0.5 MG/3 MG (3 mL) NEB SCH ×4 (09:10→21:10)
[2023-08-13] MEDS: PULMICORT NEB TX 0.5 MG NEB SCH ×2 (09:10→21:10)
[2023-08-13] MEDS: EFFEXOR XR 75 MG CAP 24-HR PO SCH (11:26)
[2023-08-13] MEDS: COZAAR PO SCH (11:26)
[2023-08-13] MEDS: ZITHROMAX INJ 500 MG VIAL 500 MG in NS 250 ML IV 250 ML IV SCH (11:26)
[2023-08-13] MEDS: REQUIP PO SCH ×2 (11:27→20:58)
[2023-08-13] MEDS: ROBITUSSIN DM PO SCH ×4 (11:27→20:58)
[2023-08-13] MEDS: LOVENOX INJ 40 MG SYR SC SCH (11:27)
[2023-08-13] MEDS: PROTONIX INJ 40 MG VIAL IVP SCH ×2 (11:27→20:58)
--- NOTE | 2023-08-13 18:54 | PCM.PROG ---
Progress Note Progress Note for Day of Date of Exam: 08/13/23 Subjective Subjective: PT IS 53 WF ADMITTED WITH AB, COPD EXACERBATION. PT HAS BEEN ON IV ATBX SINCE ADMISSION AND IV SOLU MEDROL. A SPUTUM WAS COLLECTED ON ADMISSION. PT WAS NEGATIVE FOR RSV, FLU AND COVID ON RESP PANEL. PT CONTINUES WITH SEVERE COUGHING SPELLS AND DIFFUSE EXPIRATORY WHEEZING. PLAN TO CONTINUE CURRENT MEDICATION REGIMEN AND REPEAT AM CHEST XRAY. PT ENCOURAGED PULMONARY TOILETING AND INCREASE PO HYDRATION. BP STABLE ON MEDICATION REGIMEN. Past Medical Family Social History Allergies: Allergies cyclobenzaprine [From Flexeril] Allergy (Verified 05/11/23 14:42) Vital Signs and I&O's Vital Signs: Vital Signs Temperature 98 F Temperature 97.9 F Pulse Rate [Bilateral Radial] 102 Pulse Rate [Bilateral Radial] 100 Respiratory Rate 18 Respiratory Rate 20 Blood Pressure [Right Arm] 141/72 Blood Pressure [Right Arm] 131/76 O2 Sat by Pulse Oximetry 93 O2 Sat by Pulse Oximetry 93 Intake and Output: Intake & Output 08/11/23 08/12/23 08/13/23 08/14/23 11:59 11:59 11:59 11:59 Intake Total 3787 / 3787 2320 / 2320 1123 / 1123 Balance 3787 / 3787 2320 / 2320 1123 / 1123 Physical Exam Oriented: Normal Eyes: Normal Ear: Normal Nose: Injected and Discharge Throat: Red and Exudate Respiratory: Diminished, Wheezes and Rhonchi Cardiovascular: Normal : Normal Auscultation: Bowel Sounds: Normal Tenderness: Normal Skin: Normal Musculoskeletal: Back:Lumbar and Back:Midline Psychiatric: Anxiety Affect: Anxious Speech Pattern: Clear and Appropriate Laboratory and Diagnostics 08/13/23 05:30 08/13/23 05:30 Labs: 08/11/23 20:40 Sputum - Expectorated Sputum Sputum Culture - Final 08/11/23 20:40 Sputum - Expectorated Sputum - Final Laboratory WBC 17.9 X10^3/uL (3.6-10.0) H D 08/13/23 05:30 RBC 4.73 X10^6/uL (3.5-5.4) 08/13/23 05:30 Hgb 14.7 g/dL (12.0-16.0) 08/13/23 05:30 Hct 45.4 % (36.0-47.0) 08/13/23 05:30 MCV 95.9 fL (80.0-100.0) 08/13/23 05:30 MCH 31.0 pg (27.0-34.0) 08/13/23 05:30 MCHC 32.3 g/dL (33.0-35.0) L 08/13/23 05:30 RDW 13.5 % (11.6-16.5) 08/13/23 05:30 Plt Count 341 X10^3/uL (150.0-450.0) 08/13/23 05:30 MPV 8.4 fL (7.4-11.0) 08/13/23 05:30 Neut % (Auto) 85.2 % (42.0-75.0) H 08/13/23 05:30 Lymph % (Auto) 11.1 % (21.0-51.0) L 08/13/23 05:30 [place] % (Auto) 3.6 % (0.0-13.0) 08/13/23 05:30 Eos % (Auto) 0.0 % (0.9-2.9) L 08/13/23 05:30 Baso % (Auto) 0.1 % (0.2-1.0) L 08/13/23 05:30 Neut # (Auto) 15.2 x10^3/uL (2.2-4.8) H 08/13/23 05:30 Lymph # (Auto) 2.0 X10^3/uL (1.3-2.9) 08/13/23 05:30 [place] # (Auto) 0.6 x10^3/uL (0.3-0.8) 08/13/23 05:30 Eos # (Auto) 0.0 x10^3/uL (0.0-0.2) 08/13/23 05:30 Baso # (Auto) 0.0 X10^3/uL (0.0-0.1) 08/13/23 05:30 Absolute Nucleated RBC 0.3 /100WBC 08/13/23 05:30 Sample Site Lrad 08/11/23 13:22 ABG pH 7.430 (7.35-7.45) 08/11/23 13:22 ABG pCO2 40.0 mmHg (35.0-45.0) 08/11/23 13:22 ABG pO2 92.0 mmHg (80.0-100.0) 08/11/23 13:22 ABG HCO3 26.5 mmol/L (22-26) H 08/11/23 13:22 ABG O2 Saturation 97.0 % (90-100) 08/11/23 13:22 ABG Base Excess 2.0 mmol/L (-2.0-2.0) 08/11/23 13:22 Shahid Test Pos 08/11/23 13:22 A-a Gradient 8.0 mmHg 08/11/23 13:22 FiO2 21.0 08/11/23 13:22 Blood Gas Comments Roxana well s/d 08/11/23 13:22 Sodium 138 mmol/L (136-145) 08/13/23 05:30 Corrected Sodium 139 mmol/L (136-145) 08/13/23 05:30 Potassium 4.1 mmol/L (3.5-5.1) 08/13/23 05:30 Chloride 103 mmol/L (98-107) 08/13/23 05:30 Carbon Dioxide 29.1 mmol/L (21-32) 08/13/23 05:30 BUN 8 mg/dL (7-18) 08/13/23 05:30 Creatinine 0.55 mg/dL (0.55-1.02) 08/13/23 05:30 Est GFR (MDRD) Af Amer > 60 (>60) 08/13/23 05:30 Est GFR (MDRD) Non-Af > 60 (>60) 08/13/23 05:30 Glucose 131 mg/dL (65-99) H 08/13/23 05:30 Calcium 8.5 mg/dL (8.5-10.1) 08/13/23 05:30 Corrected Calcium 9.3 mg/dL (8.5-10.1) 08/13/23 05:30 Magnesium 2.0 mg/dL (2.0-2.9) 08/12/23 04:41 Total Bilirubin 0.10 mg/dL (0.2-1.0) L 08/13/23 05:30 AST 13 Units/L (15-37) L 08/13/23 05:30 ALT 38 Units/L (12-78) 08/13/23 05:30 Alkaline Phosphatase 102 Units/L (46-116) 08/13/23 05:30 Total Protein 6.8 g/dL (6.4-8.2) 08/13/23 05:30 Albumin 3.0 g/dL (3.4-5.0) L 08/13/23 05:30 Globulin 3.8 g/dL (2.5-4.5) 08/13/23 05:30 Albumin/Globulin Ratio 0.8 Ratio (1.1-2.1) L 08/13/23 05:30 SARS-CoV-2 (PCR) Negative (NEGATIVE) 08/11/23 14:10 Influenza Type A (PCR) Negative (NEGATIVE) 08/11/23 14:10 Influenza Type B (PCR) Negative (NEGATIVE) 08/11/23 14:10 RSV (PCR) Negative (NEGATIVE) 08/11/23 14:10 Plan (1) Acute exacerbation of chronic obstructive pulmonary disease: Status: Acute (2) Hypertension: Status: Acute (3) GERD with esophagitis: Status: Acute (4) NATALEE (generalized anxiety disorder): Status: Acute (5) Degenerative lumbar spinal stenosis: Status: Acute
[2023-08-13] MEDS: ZOFRAN INJ 4 MG VIAL IVP PRN (19:58)
[2023-08-13] MEDS: NORVASC TAB 5 MG PO SCH (20:57)
[2023-08-13] MEDS: ZyrTEC TAB 10 MG PO SCH (20:58)
[2023-08-13] MEDS: SINEquan PO SCH (20:58)
[2023-08-13] MEDS: NORCO 5/325 MG TAB PO PRN (23:07)
[2023-08-14] MEDS: SOLU-Medrol 40 MG VIAL IVP SCH ×2 (05:01→20:30)
[2023-08-14 06:14] LABS: BASOPHILS % (AUTO) 0.2 % (0.2-1.0); HEMATOCRIT 43.7 % (36.0-47.0); HEMOGLOBIN 14.1 g/dL (12.0-16.0); LYMPHOCYTES % (AUTO) 11.4 % (21.0-51.0); MEAN CORPUSCULAR HEMOGLOBIN 31.2 pg (27.0-34.0); MEAN CORPUSCULAR HGB CONC 32.3 g/dL (33.0-35.0); MEAN CORPUSCULAR VOLUME 96.4 fL (80.0-100.0); MEAN PLATELET VOLUME 8.1 fL (7.4-11.0); MONOCYTES # (AUTO) 0.6 x10^3/uL (0.3-0.8); MONOCYTES % (AUTO) 3.2 % (0.0-13.0); NEUTROPHILS # (AUTO) 15.1 x10^3/uL (2.2-4.8); NEUTROPHILS % (AUTO) 85.2 % (42.0-75.0); PLATELET COUNT 308 X10^3/uL (150.0-450.0); RED BLOOD COUNT 4.54 X10^6/uL (3.5-5.4); RED CELL DISTRIBUTION WIDTH 13.8 % (11.6-16.5); WHITE BLOOD COUNT 17.8 X10^3/uL (3.6-10.0)
[2023-08-14 06:23] LABS: ALANINE AMINOTRANSFERASE 31 Units/L (12-78); ALBUMIN 2.9 g/dL (3.4-5.0); ALKALINE PHOSPHATASE 91 Units/L (46-116); ASPARTATE AMINO TRANSFERASE 7 Units/L (15-37); BLOOD UREA NITROGEN 11 mg/dL (7-18); CALCIUM 8.4 mg/dL (8.5-10.1); CARBON DIOXIDE 32.2 mmol/L (21-32); CHLORIDE 103 mmol/L (98-107); COR CA(FOR HYPOALB) 9.3 mg/dL (8.5-10.1); COR NA(FOR HYPERGLY) 141 mmol/L (136-145); CREATININE 0.66 mg/dL (0.55-1.02); GLUCOSE 118 mg/dL (65-99); POTASSIUM 4.4 mmol/L (3.5-5.1); SODIUM 141 mmol/L (136-145); TOTAL PROTEIN 6.5 g/dL (6.4-8.2); eGFR NON BLACK RACES > 60 (>60)
[2023-08-14] MEDS: COZAAR PO SCH (08:57)
[2023-08-14] MEDS: REQUIP PO SCH ×2 (08:58→20:29)
[2023-08-14] MEDS: PROTONIX INJ 40 MG VIAL IVP SCH ×2 (09:00→20:29)
[2023-08-14] MEDS: ROBITUSSIN DM PO SCH ×4 (09:00→20:29)
[2023-08-14] MEDS: ZITHROMAX INJ 500 MG VIAL 500 MG in NS 250 ML IV 250 ML IV SCH (09:00)
[2023-08-14] MEDS: DUONEB 0.5 MG/3 MG (3 mL) NEB SCH ×4 (09:07→20:41)
[2023-08-14] MEDS: PULMICORT NEB TX 0.5 MG NEB SCH ×2 (09:07→20:41)
[2023-08-14] MEDS: NS 1,000 ML IV 1,000 ML IV SCH ×2 (09:14→22:36)
[2023-08-14] MEDS: EFFEXOR XR 75 MG CAP 24-HR PO SCH (09:14)
[2023-08-14] MEDS: LOVENOX INJ 40 MG SYR SC SCH (09:14)
[2023-08-14] MEDS: ZOFRAN INJ 4 MG VIAL IVP PRN (13:35)
--- NOTE | 2023-08-14 14:47 | PCM.PROG ---
Progress Note Progress Note for Day of Date of Exam: 08/14/23 Subjective Subjective: PT IS 53 WF ADMITTED WITH AB, COPD EXACERBATION. PT HAS BEEN ON IV ATBX SINCE ADMISSION AND IV SOLU MEDROL. A SPUTUM WAS COLLECTED ON ADMISSION. PT WAS NEGATIVE FOR RSV, FLU AND COVID ON RESP PANEL. PT CONTINUES WITH SEVERE COUGHING SPELLS AND DIFFUSE EXPIRATORY WHEEZING. PT REPORTS VOMITING A LARGE AMOUNT THIS THICK MUCOUS THIS MORNING. PT HAS A LARGE HIATAL HERNIA AND GERD. PT REPORTS HER COUGH "MAKES HER VOMIT" WITHOUT CONTINUOUS NAUSEA. PT IS ON PROTONIX IV BID AND HAS PRN ZOFRAN. PT WAS FLUSHED THIS MORNING, DUE TO IV STEROIDS. PLAN TO DECREASE SOLU MEDROL TO Q 12 AND CONTINUE CURRENT MEDICATION REGIMEN AND REPEAT AM CHEST XRAY. PT ENCOURAGED PULMONARY TOILETING AND INCREASE PO HYDRATION. BP STABLE ON MEDICATION REGIMEN. Past Medical Family Social History Allergies: Allergies cyclobenzaprine [From Flexeril] Allergy (Verified 05/11/23 14:42) Vital Signs and I&O's Vital Signs: Vital Signs Temperature 97.7 F Temperature 98 F Pulse Rate [Bilateral Radial] 97 Pulse Rate [Bilateral Radial] 81 Pulse Rate 91 Respiratory Rate 20 Respiratory Rate 18 Blood Pressure [Right Arm] 129/73 Blood Pressure [Right Arm] 138/87 O2 Sat by Pulse Oximetry 93 O2 Sat by Pulse Oximetry 94 O2 Sat by Pulse Oximetry 92 Intake and Output: Intake & Output 08/12/23 08/13/23 08/14/23 08/15/23 11:59 11:59 11:59 11:59 Intake Total 3787 / 3787 2320 / 2320 2440 / 2440 Balance 3787 / 3787 2320 / 2320 2440 / 2440 Physical Exam Oriented: Normal Eyes: Normal Ear: Normal Nose: Injected and Discharge Throat: Red and Exudate Respiratory: Diminished, Wheezes and Rhonchi Cardiovascular: Normal : Normal Auscultation: Bowel Sounds: Normal Tenderness: Normal Skin: Normal Musculoskeletal: Back:Lumbar and Back:Midline Psychiatric: Anxiety Affect: Anxious Speech Pattern: Clear and Appropriate Laboratory and Diagnostics 08/14/23 05:48 08/14/23 05:48 Labs: 08/11/23 20:40 Sputum - Expectorated Sputum Sputum Culture - Final 08/11/23 20:40 Sputum - Expectorated Sputum - Final Laboratory WBC 17.8 X10^3/uL (3.6-10.0) H 08/14/23 05:48 RBC 4.54 X10^6/uL (3.5-5.4) 08/14/23 05:48 Hgb 14.1 g/dL (12.0-16.0) 08/14/23 05:48 Hct 43.7 % (36.0-47.0) 08/14/23 05:48 MCV 96.4 fL (80.0-100.0) 08/14/23 05:48 MCH 31.2 pg (27.0-34.0) 08/14/23 05:48 MCHC 32.3 g/dL (33.0-35.0) L 08/14/23 05:48 RDW 13.8 % (11.6-16.5) 08/14/23 05:48 Plt Count 308 X10^3/uL (150.0-450.0) 08/14/23 05:48 MPV 8.1 fL (7.4-11.0) 08/14/23 05:48 Neut % (Auto) 85.2 % (42.0-75.0) H 08/14/23 05:48 Lymph % (Auto) 11.4 % (21.0-51.0) L 08/14/23 05:48 [place] % (Auto) 3.2 % (0.0-13.0) 08/14/23 05:48 Eos % (Auto) 0.0 % (0.9-2.9) L 08/14/23 05:48 Baso % (Auto) 0.2 % (0.2-1.0) 08/14/23 05:48 Neut # (Auto) 15.1 x10^3/uL (2.2-4.8) H 08/14/23 05:48 Lymph # (Auto) 2.0 X10^3/uL (1.3-2.9) 08/14/23 05:48 [place] # (Auto) 0.6 x10^3/uL (0.3-0.8) 08/14/23 05:48 Eos # (Auto) 0.0 x10^3/uL (0.0-0.2) 08/14/23 05:48 Baso # (Auto) 0.0 X10^3/uL (0.0-0.1) 08/14/23 05:48 Absolute Nucleated RBC 0.0 /100WBC 08/14/23 05:48 Sample Site Lrad 08/11/23 13:22 ABG pH 7.430 (7.35-7.45) 08/11/23 13:22 ABG pCO2 40.0 mmHg (35.0-45.0) 08/11/23 13:22 ABG pO2 92.0 mmHg (80.0-100.0) 08/11/23 13:22 ABG HCO3 26.5 mmol/L (22-26) H 08/11/23 13:22 ABG O2 Saturation 97.0 % (90-100) 08/11/23 13:22 ABG Base Excess 2.0 mmol/L (-2.0-2.0) 08/11/23 13:22 Shahid Test Pos 08/11/23 13:22 A-a Gradient 8.0 mmHg 08/11/23 13:22 FiO2 21.0 08/11/23 13:22 Blood Gas Comments Roxana well s/d 08/11/23 13:22 Sodium 141 mmol/L (136-145) 08/14/23 05:48 Corrected Sodium 141 mmol/L (136-145) 08/14/23 05:48 Potassium 4.4 mmol/L (3.5-5.1) 08/14/23 05:48 Chloride 103 mmol/L (98-107) 08/14/23 05:48 Carbon Dioxide 32.2 mmol/L (21-32) H 08/14/23 05:48 BUN 11 mg/dL (7-18) 08/14/23 05:48 Creatinine 0.66 mg/dL (0.55-1.02) 08/14/23 05:48 Est GFR (MDRD) Af Amer > 60 (>60) 08/14/23 05:48 Est GFR (MDRD) Non-Af > 60 (>60) 08/14/23 05:48 Glucose 118 mg/dL (65-99) H 08/14/23 05:48 Calcium 8.4 mg/dL (8.5-10.1) L 08/14/23 05:48 Corrected Calcium 9.3 mg/dL (8.5-10.1) 08/14/23 05:48 Magnesium 2.0 mg/dL (2.0-2.9) 08/12/23 04:41 Total Bilirubin 0.10 mg/dL (0.2-1.0) L 08/14/23 05:48 AST 7 Units/L (15-37) L 08/14/23 05:48 ALT 31 Units/L (12-78) 08/14/23 05:48 Alkaline Phosphatase 91 Units/L (46-116) 08/14/23 05:48 Total Protein 6.5 g/dL (6.4-8.2) 08/14/23 05:48 Albumin 2.9 g/dL (3.4-5.0) L 08/14/23 05:48 Globulin 3.6 g/dL (2.5-4.5) 08/14/23 05:48 Albumin/Globulin Ratio 0.8 Ratio (1.1-2.1) L 08/14/23 05:48 SARS-CoV-2 (PCR) Negative (NEGATIVE) 08/11/23 14:10 Influenza Type A (PCR) Negative (NEGATIVE) 08/11/23 14:10 Influenza Type B (PCR) Negative (NEGATIVE) 08/11/23 14:10 RSV (PCR) Negative (NEGATIVE) 08/11/23 14:10 Plan (1) Acute exacerbation of chronic obstructive pulmonary disease: Status: Acute Narrative Support Text: IV HYDRATION IV SOLU MEDROL SPUTUM CULTURE ON ADMISSION BP CONTROL, PRN SUPPPLEMENTAL O2 RESP THERAPY, DUO NEBS IV ATBX THERAPY (2) Hypertension: Status: Acute (3) GERD with esophagitis: Status: Acute (4) NATALEE (generalized anxiety disorder): Status: Acute (5) Degenerative lumbar spinal stenosis: Status: Acute
[2023-08-14] MEDS: TUSSIONEX PENNKINETIC SUSP PO SCH (20:29)
[2023-08-14] MEDS: NORVASC TAB 5 MG PO SCH (20:29)
[2023-08-14] MEDS: ZyrTEC TAB 10 MG PO SCH (20:29)
[2023-08-14] MEDS: SINEquan PO SCH (20:58)
[2023-08-15] MEDS: NS 1,000 ML IV 1,000 ML IV SCH ×3 (04:47→17:15)
[2023-08-15 06:04] LABS: BASOPHILS % (AUTO) 0.1 % (0.2-1.0); HEMATOCRIT 44.9 % (36.0-47.0); HEMOGLOBIN 14.5 g/dL (12.0-16.0); LYMPHOCYTES # (AUTO) 2.2 X10^3/uL (1.3-2.9); LYMPHOCYTES % (AUTO) 16.8 % (21.0-51.0); MEAN CORPUSCULAR HEMOGLOBIN 31.1 pg (27.0-34.0); MEAN CORPUSCULAR HGB CONC 32.4 g/dL (33.0-35.0); MEAN CORPUSCULAR VOLUME 96.3 fL (80.0-100.0); MEAN PLATELET VOLUME 8.3 fL (7.4-11.0); MONOCYTES # (AUTO) 0.7 x10^3/uL (0.3-0.8); MONOCYTES % (AUTO) 5.7 % (0.0-13.0); NEUTROPHILS % (AUTO) 77.4 % (42.0-75.0); PLATELET COUNT 362 X10^3/uL (150.0-450.0); RED BLOOD COUNT 4.67 X10^6/uL (3.5-5.4); RED CELL DISTRIBUTION WIDTH 13.9 % (11.6-16.5); WHITE BLOOD COUNT 12.9 X10^3/uL (3.6-10.0)
[2023-08-15 06:23] LABS: ALANINE AMINOTRANSFERASE 31 Units/L (12-78); ALKALINE PHOSPHATASE 92 Units/L (46-116); ASPARTATE AMINO TRANSFERASE 11 Units/L (15-37); BLOOD UREA NITROGEN 13 mg/dL (7-18); CALCIUM 8.4 mg/dL (8.5-10.1); CARBON DIOXIDE 35.1 mmol/L (21-32); CHLORIDE 104 mmol/L (98-107); COR CA(FOR HYPOALB) 9.2 mg/dL (8.5-10.1); COR NA(FOR HYPERGLY) 143 mmol/L (136-145); CREATININE 0.73 mg/dL (0.55-1.02); GLUCOSE 127 mg/dL (65-99); POTASSIUM 5.1 mmol/L (3.5-5.1); SODIUM 142 mmol/L (136-145); TOTAL PROTEIN 6.5 g/dL (6.4-8.2); eGFR NON BLACK RACES > 60 (>60)
[2023-08-15] MEDS: ZITHROMAX INJ 500 MG VIAL 500 MG in NS 250 ML IV 250 ML IV SCH (08:32)
[2023-08-15] MEDS: PROTONIX INJ 40 MG VIAL IVP SCH ×2 (08:32→20:17)
[2023-08-15] MEDS: TUSSIONEX PENNKINETIC SUSP PO SCH ×2 (08:33→20:09)
[2023-08-15] MEDS: ROBITUSSIN DM PO SCH ×4 (08:34→20:09)
[2023-08-15] MEDS: SOLU-Medrol 40 MG VIAL IVP SCH ×3 (08:34→20:09)
[2023-08-15] MEDS: COZAAR PO SCH (08:34)
[2023-08-15] MEDS: REQUIP PO SCH ×2 (08:34→20:10)
[2023-08-15] MEDS: LOVENOX INJ 40 MG SYR SC SCH (08:34)
[2023-08-15] MEDS: EFFEXOR XR 75 MG CAP 24-HR PO SCH ×2 (08:35→08:36)
[2023-08-15] MEDS: PULMICORT NEB TX 0.5 MG NEB SCH ×2 (08:45→20:20)
[2023-08-15] MEDS: DUONEB 0.5 MG/3 MG (3 mL) NEB SCH ×4 (08:45→20:20)
[2023-08-15] MEDS: FORTAZ or TAZICEF VIAL INJ 2 G in NS 100 ML IV 100 ML IV SCH ×3 (11:48→22:21)
[2023-08-15] MEDS: MUCOMYST (RESPIRATORY USE ONLY) NEB SCH ×3 (13:23→20:20)
[2023-08-15] MEDS: ZyrTEC TAB 10 MG PO SCH (20:10)
[2023-08-15] MEDS: NORCO 5/325 MG TAB PO PRN (20:10)
[2023-08-15] MEDS: NORVASC TAB 5 MG PO SCH (20:10)
--- NOTE | 2023-08-15 20:20 | PCM.PROG ---
Progress Note Progress Note for Day of Date of Exam: 08/15/23 Subjective Subjective: PT IS 53 WF ADMITTED WITH AB, COPD EXACERBATION. PT HAS BEEN ON IV ATBX SINCE ADMISSION AND IV SOLU MEDROL. A SPUTUM WAS COLLECTED ON ADMISSION. PT WAS NEGATIVE FOR RSV, FLU AND COVID ON RESP PANEL. PT CONTINUES WITH SEVERE COUGHING SPELLS AND DIFFUSE EXPIRATORY WHEEZING. PT REPORTS VOMITING A LARGE AMOUNT THIS THICK MUCOUS THIS MORNING. PT HAS A LARGE HIATAL HERNIA AND GERD. PT REPORTS HER COUGH "MAKES HER VOMIT" WITHOUT CONTINUOUS NAUSEA. PT IS ON PROTONIX IV BID AND HAS PRN ZOFRAN. PT WAS FLUSHED THIS MORNING, DUE TO IV STEROIDS. PLAN TO DECREASE SOLU MEDROL TO Q 12 AND CONTINUE CURRENT MEDICATION REGIMEN AND REPEAT AM CHEST XRAY. PT ENCOURAGED PULMONARY TOILETING AND INCREASE PO HYDRATION. BP STABLE ON MEDICATION REGIMEN. Thursday, 15 August 2023 The patient is still having dyspnea this morning and wheezing. Auscultation reveals that she is having a lot of tightness in her chest and expiratory wheezing. Her O2 sat is 93% on room air, so she is not ready to be discharged home at this time. The patient's white blood cell count is 12,900 this morning. Her hydration status is good with a creatinine of 0.73. We will continue her on her current treatment and repeat her labs in the morning. Past Medical Family Social History Allergies: Allergies cyclobenzaprine [From Flexeril] Allergy (Verified 05/11/23 14:42) Review of Systems ROS: No change since H&P Vital Signs and I&O's Vital Signs: Vital Signs Temperature 97.6 F Temperature 97.7 F Pulse Rate [Bilateral Radial] 103 Pulse Rate [Bilateral Radial] 86 Respiratory Rate 18 Respiratory Rate 20 Respiratory Rate 18 Blood Pressure [Right Arm] 141/71 Blood Pressure [Right Arm] 164/72 O2 Sat by Pulse Oximetry 93 O2 Sat by Pulse Oximetry 95 Intake and Output: Intake & Output 08/13/23 08/14/23 08/15/23 08/16/23 11:59 11:59 11:59 11:59 Intake Total 2320 / 2320 2440 / 2440 2648 / 2648 940 / 940 Balance 2320 / 2320 2440 / 2440 2648 / 2648 940 / 940 Physical Exam Oriented: Normal Eyes: Normal Ear: Normal Nose: Injected and Discharge Throat: Red and Exudate Respiratory: Diminished, Wheezes and Rhonchi Cardiovascular: Normal : Normal Auscultation: Bowel Sounds: Normal Tenderness: Normal Skin: Normal Musculoskeletal: Back:Lumbar and Back:Midline Psychiatric: Anxiety Affect: Anxious Speech Pattern: Clear and Appropriate Laboratory and Diagnostics 08/15/23 05:09 08/15/23 05:09 Labs: 08/11/23 20:40 Sputum - Expectorated Sputum Sputum Culture - Final 08/11/23 20:40 Sputum - Expectorated Sputum - Final Laboratory WBC 12.9 X10^3/uL (3.6-10.0) H 08/15/23 05:09 RBC 4.67 X10^6/uL (3.5-5.4) 08/15/23 05:09 Hgb 14.5 g/dL (12.0-16.0) 08/15/23 05:09 Hct 44.9 % (36.0-47.0) 08/15/23 05:09 MCV 96.3 fL (80.0-100.0) 08/15/23 05:09 MCH 31.1 pg (27.0-34.0) 08/15/23 05:09 MCHC 32.4 g/dL (33.0-35.0) L 08/15/23 05:09 RDW 13.9 % (11.6-16.5) 08/15/23 05:09 Plt Count 362 X10^3/uL (150.0-450.0) 08/15/23 05:09 MPV 8.3 fL (7.4-11.0) 08/15/23 05:09 Neut % (Auto) 77.4 % (42.0-75.0) H 08/15/23 05:09 Lymph % (Auto) 16.8 % (21.0-51.0) L 08/15/23 05:09 [place] % (Auto) 5.7 % (0.0-13.0) 08/15/23 05:09 Eos % (Auto) 0.0 % (0.9-2.9) L 08/15/23 05:09 Baso % (Auto) 0.1 % (0.2-1.0) L 08/15/23 05:09 Neut # (Auto) 10.0 x10^3/uL (2.2-4.8) H 08/15/23 05:09 Lymph # (Auto) 2.2 X10^3/uL (1.3-2.9) 08/15/23 05:09 [place] # (Auto) 0.7 x10^3/uL (0.3-0.8) 08/15/23 05:09 Eos # (Auto) 0.0 x10^3/uL (0.0-0.2) 08/15/23 05:09 Baso # (Auto) 0.0 X10^3/uL (0.0-0.1) 08/15/23 05:09 Absolute Nucleated RBC 0.1 /100WBC 08/15/23 05:09 Sample Site Lrad 08/11/23 13:22 ABG pH 7.430 (7.35-7.45) 08/11/23 13:22 ABG pCO2 40.0 mmHg (35.0-45.0) 08/11/23 13:22 ABG pO2 92.0 mmHg (80.0-100.0) 08/11/23 13:22 ABG HCO3 26.5 mmol/L (22-26) H 08/11/23 13:22 ABG O2 Saturation 97.0 % (90-100) 08/11/23 13:22 ABG Base Excess 2.0 mmol/L (-2.0-2.0) 08/11/23 13:22 Shahid Test Pos 08/11/23 13:22 A-a Gradient 8.0 mmHg 08/11/23 13:22 FiO2 21.0 08/11/23 13:22 Blood Gas Comments Roxana well s/d 08/11/23 13:22 Sodium 142 mmol/L (136-145) 08/15/23 05:09 Corrected Sodium 143 mmol/L (136-145) 08/15/23 05:09 Potassium 5.1 mmol/L (3.5-5.1) 08/15/23 05:09 Chloride 104 mmol/L (98-107) 08/15/23 05:09 Carbon Dioxide 35.1 mmol/L (21-32) H 08/15/23 05:09 BUN 13 mg/dL (7-18) 08/15/23 05:09 Creatinine 0.73 mg/dL (0.55-1.02) 08/15/23 05:09 Est GFR (MDRD) Af Amer > 60 (>60) 08/15/23 05:09 Est GFR (MDRD) Non-Af > 60 (>60) 08/15/23 05:09 Glucose 127 mg/dL (65-99) H 08/15/23 05:09 Calcium 8.4 mg/dL (8.5-10.1) L 08/15/23 05:09 Corrected Calcium 9.2 mg/dL (8.5-10.1) 08/15/23 05:09 Magnesium 2.0 mg/dL (2.0-2.9) 08/12/23 04:41 Total Bilirubin 0.10 mg/dL (0.2-1.0) L 08/15/23 05:09 AST 11 Units/L (15-37) L 08/15/23 05:09 ALT 31 Units/L (12-78) 08/15/23 05:09 Alkaline Phosphatase 92 Units/L (46-116) 08/15/23 05:09 Total Protein 6.5 g/dL (6.4-8.2) 08/15/23 05:09 Albumin 3.0 g/dL (3.4-5.0) L 08/15/23 05:09 Globulin 3.5 g/dL (2.5-4.5) 08/15/23 05:09 Albumin/Globulin Ratio 0.9 Ratio (1.1-2.1) L 08/15/23 05:09 SARS-CoV-2 (PCR) Negative (NEGATIVE) 08/11/23 14:10 Influenza Type A (PCR) Negative (NEGATIVE) 08/11/23 14:10 Influenza Type B (PCR) Negative (NEGATIVE) 08/11/23 14:10 RSV (PCR) Negative (NEGATIVE) 08/11/23 14:10 Radiology Reviewed: Yes Plan (1) Acute exacerbation of chronic obstructive pulmonary disease: Status: Acute (2) Hypertension: Status: Acute (3) GERD with esophagitis: Status: Acute (4) NATALEE (generalized anxiety disorder): Status: Acute (5) Degenerative lumbar spinal stenosis: Status: Acute
[2023-08-15] MEDS: SINEquan PO SCH (20:39)
[2023-08-16] MEDS: NS 1,000 ML IV 1,000 ML IV SCH ×3 (01:35→13:13)
[2023-08-16] MEDS: FORTAZ or TAZICEF VIAL INJ 2 G in NS 100 ML IV 100 ML IV SCH ×3 (05:13→21:12)
[2023-08-16 06:00] LABS: BASOPHILS % (AUTO) 0.3 % (0.2-1.0); HEMATOCRIT 44.9 % (36.0-47.0); HEMOGLOBIN 14.4 g/dL (12.0-16.0); LYMPHOCYTES # (AUTO) 2.6 X10^3/uL (1.3-2.9); LYMPHOCYTES % (AUTO) 18.4 % (21.0-51.0); MEAN CORPUSCULAR HEMOGLOBIN 30.7 pg (27.0-34.0); MEAN CORPUSCULAR VOLUME 96.1 fL (80.0-100.0); MEAN PLATELET VOLUME 8.1 fL (7.4-11.0); MONOCYTES # (AUTO) 0.4 x10^3/uL (0.3-0.8); MONOCYTES % (AUTO) 2.8 % (0.0-13.0); NEUTROPHILS # (AUTO) 11.1 x10^3/uL (2.2-4.8); NEUTROPHILS % (AUTO) 78.5 % (42.0-75.0); PLATELET COUNT 336 X10^3/uL (150.0-450.0); RED BLOOD COUNT 4.67 X10^6/uL (3.5-5.4); RED CELL DISTRIBUTION WIDTH 13.5 % (11.6-16.5); WHITE BLOOD COUNT 14.2 X10^3/uL (3.6-10.0)
[2023-08-16] MEDS: MUCOMYST (RESPIRATORY USE ONLY) NEB SCH ×3 (06:00→20:46)
[2023-08-16 06:09] LABS: ALANINE AMINOTRANSFERASE 33 Units/L (12-78); ALBUMIN 2.9 g/dL (3.4-5.0); ALKALINE PHOSPHATASE 86 Units/L (46-116); ASPARTATE AMINO TRANSFERASE 9 Units/L (15-37); BLOOD UREA NITROGEN 13 mg/dL (7-18); CALCIUM 8.5 mg/dL (8.5-10.1); CHLORIDE 101 mmol/L (98-107); COR CA(FOR HYPOALB) 9.4 mg/dL (8.5-10.1); COR NA(FOR HYPERGLY) 141 mmol/L (136-145); CREATININE 0.62 mg/dL (0.55-1.02); GLUCOSE 123 mg/dL (65-99); POTASSIUM 4.5 mmol/L (3.5-5.1); SODIUM 140 mmol/L (136-145); TOTAL PROTEIN 6.3 g/dL (6.4-8.2); eGFR NON BLACK RACES > 60 (>60)
[2023-08-16 06:17] LABS: BAND NEUTROPHILS % 3 % (0-10)
[2023-08-16 06:18] LABS: METAMYELOCYTES % 1; PLATELET MORPHOLOGY COMMENT NORMAL (NORMAL); STOMATOCYTES SLIGHT
[2023-08-16] MEDS: LOVENOX INJ 40 MG SYR SC SCH ×2 (08:27→08:37)
[2023-08-16] MEDS: ZITHROMAX INJ 500 MG VIAL 500 MG in NS 250 ML IV 250 ML IV SCH (08:27)
[2023-08-16] MEDS: ROBITUSSIN DM PO SCH ×4 (08:28→20:24)
[2023-08-16] MEDS: REQUIP PO SCH ×2 (08:28→20:24)
[2023-08-16] MEDS: COZAAR PO SCH (08:28)
[2023-08-16] MEDS: SOLU-Medrol 40 MG VIAL IVP SCH ×2 (08:29→20:24)
[2023-08-16] MEDS: TUSSIONEX PENNKINETIC SUSP PO SCH ×2 (08:29→20:24)
[2023-08-16] MEDS: PROTONIX INJ 40 MG VIAL IVP SCH ×2 (08:29→20:24)
[2023-08-16] MEDS: EFFEXOR XR 75 MG CAP 24-HR PO SCH (08:36)
[2023-08-16] MEDS: DUONEB 0.5 MG/3 MG (3 mL) NEB SCH ×4 (09:02→20:46)
[2023-08-16] MEDS: PULMICORT NEB TX 0.5 MG NEB SCH ×2 (09:02→20:45)
--- NOTE | 2023-08-16 14:11 | RAD ---
EXAM:CHEST, 1 VIEWHISTORY:copd exacerbation;COMPARISON:August 11, 2023.FINDINGS:Mild cardiomegaly.No acute airspace disease.No pneumothorax or effusion.The bony thorax appears age appropriate.IMPRESSION:Mild cardiomegaly.THIS IS AN ELECTRONICALLY VERIFIED FINAL [id number]/2023 2:08 PM - Electronically signed by John Paul Soto DO
--- NOTE | 2023-08-16 16:43 | PCM.PROG ---
Progress Note Progress Note for Day of Date of Exam: 08/16/23 Subjective Subjective: PT IS 53 WF ADMITTED WITH AB, COPD EXACERBATION. PT HAS BEEN ON IV ATBX SINCE ADMISSION AND IV SOLU MEDROL. A SPUTUM WAS COLLECTED ON ADMISSION. PT WAS NEGATIVE FOR RSV, FLU AND COVID ON RESP PANEL. PT CONTINUES WITH SEVERE COUGHING SPELLS AND DIFFUSE EXPIRATORY WHEEZING. PT REPORTS VOMITING A LARGE AMOUNT THIS THICK MUCOUS THIS MORNING. PT HAS A LARGE HIATAL HERNIA AND GERD. PT REPORTS HER COUGH "MAKES HER VOMIT" WITHOUT CONTINUOUS NAUSEA. PT IS ON PROTONIX IV BID AND HAS PRN ZOFRAN. PT WAS FLUSHED THIS MORNING, DUE TO IV STEROIDS. PLAN TO DECREASE SOLU MEDROL TO Q 12 AND CONTINUE CURRENT MEDICATION REGIMEN AND REPEAT AM CHEST XRAY. PT ENCOURAGED PULMONARY TOILETING AND INCREASE PO HYDRATION. BP STABLE ON MEDICATION REGIMEN. Thursday, 15 August 2023 The patient is still having dyspnea this morning and wheezing. Auscultation reveals that she is having a lot of tightness in her chest and expiratory wheezing. Her O2 sat is 93% on room air, so she is not ready to be discharged home at this time. The patient's white blood cell count is 12,900 this morning. Her hydration status is good with a creatinine of 0.73. We will continue her on her current treatment and repeat her labs in the morning. 16 August 2023 The patient is having a lot less dyspnea today. She is having a lot less wheezing is well. She feels better however she is still having some expiratory wheezing but it is improving overall. She is still not quite not ready to be discharged home. Her oxygen level is up today and she is improving slowly still. We will continue her on her current treatment and we did add IV for today as yesterday to her regimen and increased her dose of Solu-Medrol to 60 mg IV twice daily from 40 mg IV twice daily. Past Medical Family Social History Allergies: Allergies cyclobenzaprine [From Flexeril] Allergy (Verified 05/11/23 14:42) Review of Systems ROS: No change since H&P Vital Signs and I&O's Vital Signs: Vital Signs Temperature 97.8 F Temperature 97.9 F Pulse Rate [Bilateral Radial] 99 Pulse Rate [Bilateral Radial] 84 Pulse Rate 72 Respiratory Rate 20 Respiratory Rate 18 Blood Pressure [Right Arm] 125/62 Blood Pressure [Right Arm] 174/87 O2 Sat by Pulse Oximetry 95 O2 Sat by Pulse Oximetry 94 O2 Sat by Pulse Oximetry 95 Intake and Output: Intake & Output 08/14/23 08/15/23 08/16/23 08/17/23 11:59 11:59 11:59 11:59 Intake Total 2440 / 2440 2648 / 2648 3029 / 3029 1479 / 1479 Balance 2440 / 2440 2648 / 2648 3029 / 3029 1479 / 1479 Physical Exam Oriented: Normal Eyes: Normal Ear: Normal Nose: Injected and Discharge Throat: Red and Exudate Respiratory: Diminished, Wheezes and Rhonchi Cardiovascular: Normal : Normal Auscultation: Bowel Sounds: Normal Tenderness: Normal Skin: Normal Musculoskeletal: Back:Lumbar and Back:Midline Psychiatric: Anxiety Affect: Anxious Speech Pattern: Clear and Appropriate Laboratory and Diagnostics 08/16/23 05:00 08/16/23 05:00 Labs: 08/11/23 20:40 Sputum - Expectorated Sputum Sputum Culture - Final 08/11/23 20:40 Sputum - Expectorated Sputum - Final Laboratory WBC 14.2 X10^3/uL (3.6-10.0) H 08/16/23 05:00 RBC 4.67 X10^6/uL (3.5-5.4) 08/16/23 05:00 Hgb 14.4 g/dL (12.0-16.0) 08/16/23 05:00 Hct 44.9 % (36.0-47.0) 08/16/23 05:00 MCV 96.1 fL (80.0-100.0) 08/16/23 05:00 MCH 30.7 pg (27.0-34.0) 08/16/23 05:00 MCHC 32.0 g/dL (33.0-35.0) L 08/16/23 05:00 RDW 13.5 % (11.6-16.5) 08/16/23 05:00 Plt Count 336 X10^3/uL (150.0-450.0) 08/16/23 05:00 Plt Count Comment Adequate (ADEQUATE) 08/16/23 05:00 MPV 8.1 fL (7.4-11.0) 08/16/23 05:00 Neut % (Auto) 78.5 % (42.0-75.0) H 08/16/23 05:00 Lymph % (Auto) 18.4 % (21.0-51.0) L 08/16/23 05:00 [place] % (Auto) 2.8 % (0.0-13.0) 08/16/23 05:00 Eos % (Auto) 0.0 % (0.9-2.9) L 08/16/23 05:00 Baso % (Auto) 0.3 % (0.2-1.0) 08/16/23 05:00 Neut # (Auto) 11.1 x10^3/uL (2.2-4.8) H 08/16/23 05:00 Lymph # (Auto) 2.6 X10^3/uL (1.3-2.9) 08/16/23 05:00 [place] # (Auto) 0.4 x10^3/uL (0.3-0.8) 08/16/23 05:00 Eos # (Auto) 0.0 x10^3/uL (0.0-0.2) 08/16/23 05:00 Baso # (Auto) 0.0 X10^3/uL (0.0-0.1) 08/16/23 05:00 Absolute Nucleated RBC 0.1 /100WBC 08/16/23 05:00 Total Counted 100 08/16/23 05:00 Neutrophils % (Manual) 70 % (39-76) 08/16/23 05:00 Band Neutrophils % 3 % (0-10) 08/16/23 05:00 Lymphocytes % (Manual) 23 % (13-43) 08/16/23 05:00 Monocytes % (Manual) 3 % (4-9) L 08/16/23 05:00 Metamyelocytes % 1 08/16/23 05:00 Atypical Lymphocytes Few A 08/16/23 05:00 Plt Morphology Comment Normal (NORMAL) 08/16/23 05:00 RBC Morphology Abnormal (NORMAL) A 08/16/23 05:00 Stomatocytes Slight A 08/16/23 05:00 Sample Site Lrad 08/11/23 13:22 ABG pH 7.430 (7.35-7.45) 08/11/23 13:22 ABG pCO2 40.0 mmHg (35.0-45.0) 08/11/23 13:22 ABG pO2 92.0 mmHg (80.0-100.0) 08/11/23 13:22 ABG HCO3 26.5 mmol/L (22-26) H 08/11/23 13:22 ABG O2 Saturation 97.0 % (90-100) 08/11/23 13:22 ABG Base Excess 2.0 mmol/L (-2.0-2.0) 08/11/23 13:22 Shahid Test Pos 08/11/23 13:22 A-a Gradient 8.0 mmHg 08/11/23 13:22 FiO2 21.0 08/11/23 13:22 Blood Gas Comments Roxana well s/d 08/11/23 13:22 Sodium 140 mmol/L (136-145) 08/16/23 05:00 Corrected Sodium 141 mmol/L (136-145) 08/16/23 05:00 Potassium 4.5 mmol/L (3.5-5.1) 08/16/23 05:00 Chloride 101 mmol/L (98-107) 08/16/23 05:00 Carbon Dioxide 34.0 mmol/L (21-32) H 08/16/23 05:00 BUN 13 mg/dL (7-18) 08/16/23 05:00 Creatinine 0.62 mg/dL (0.55-1.02) 08/16/23 05:00 Est GFR (MDRD) Af Amer > 60 (>60) 08/16/23 05:00 Est GFR (MDRD) Non-Af > 60 (>60) 08/16/23 05:00 Glucose 123 mg/dL (65-99) H 08/16/23 05:00 Calcium 8.5 mg/dL (8.5-10.1) 08/16/23 05:00 Corrected Calcium 9.4 mg/dL (8.5-10.1) 08/16/23 05:00 Magnesium 2.0 mg/dL (2.0-2.9) 08/12/23 04:41 Total Bilirubin 0.10 mg/dL (0.2-1.0) L 08/16/23 05:00 AST 9 Units/L (15-37) L 08/16/23 05:00 ALT 33 Units/L (12-78) 08/16/23 05:00 Alkaline Phosphatase 86 Units/L (46-116) 08/16/23 05:00 Total Protein 6.3 g/dL (6.4-8.2) L 08/16/23 05:00 Albumin 2.9 g/dL (3.4-5.0) L 08/16/23 05:00 Globulin 3.4 g/dL (2.5-4.5) 08/16/23 05:00 Albumin/Globulin Ratio 0.9 Ratio (1.1-2.1) L 08/16/23 05:00 SARS-CoV-2 (PCR) Negative (NEGATIVE) 08/11/23 14:10 Influenza Type A (PCR) Negative (NEGATIVE) 08/11/23 14:10 Influenza Type B (PCR) Negative (NEGATIVE) 08/11/23 14:10 RSV (PCR) Negative (NEGATIVE) 08/11/23 14:10 Plan (1) Acute exacerbation of chronic obstructive pulmonary disease: Status: Acute Narrative Support Text: Improving. Plan: Continue current treatment. (2) Hypertension: Status: Acute (3) GERD with esophagitis: Status: Acute (4) NATALEE (generalized anxiety disorder): Status: Acute (5) Degenerative lumbar spinal stenosis: Status: Acute
[2023-08-16] MEDS: ZyrTEC TAB 10 MG PO SCH (20:24)
[2023-08-16] MEDS: NORVASC TAB 5 MG PO SCH (20:24)
[2023-08-16] MEDS: NORCO 5/325 MG TAB PO PRN (20:26)
[2023-08-16] MEDS: SINEquan PO SCH (21:23)
[2023-08-17] MEDS: NS 1,000 ML IV 1,000 ML IV SCH ×2 (02:07→05:12)
--- NOTE | 2023-08-17 05:08 | RAD ---
HISTORYcopd exacerbation, bronchitis PMH: COPD, ASTHMA, HTN PSH: GB (12/31/20), GYNSTUDYCHEST, 1 [id number] trachea is midline. The cardiac silhouette is mildly enlarged.. The lungs are clear without focal infiltrate or effusion. The bony thorax is unremarkable.IMPRESSIONMild cardiomegalyNo active cardiopulmonary disease.Electronically signed by: Stan Alfred (Aug 17, 2023 05:02:36)
[2023-08-17] MEDS: FORTAZ or TAZICEF VIAL INJ 2 G in NS 100 ML IV 100 ML IV SCH ×2 (05:12→14:58)
[2023-08-17 06:04] LABS: BASOPHILS % (AUTO) 0.1 % (0.2-1.0); HEMATOCRIT 43.5 % (36.0-47.0); HEMOGLOBIN 14.3 g/dL (12.0-16.0); LYMPHOCYTES # (AUTO) 2.4 X10^3/uL (1.3-2.9); MEAN CORPUSCULAR HEMOGLOBIN 31.1 pg (27.0-34.0); MEAN CORPUSCULAR HGB CONC 32.8 g/dL (33.0-35.0); MEAN CORPUSCULAR VOLUME 94.9 fL (80.0-100.0); MEAN PLATELET VOLUME 8.2 fL (7.4-11.0); MONOCYTES # (AUTO) 0.6 x10^3/uL (0.3-0.8); MONOCYTES % (AUTO) 3.2 % (0.0-13.0); NEUTROPHILS % (AUTO) 82.7 % (42.0-75.0); PLATELET COUNT 392 X10^3/uL (150.0-450.0); RED BLOOD COUNT 4.58 X10^6/uL (3.5-5.4); RED CELL DISTRIBUTION WIDTH 13.7 % (11.6-16.5)
[2023-08-17 06:20] LABS: ALANINE AMINOTRANSFERASE 32 Units/L (12-78); ALBUMIN 2.8 g/dL (3.4-5.0); ALKALINE PHOSPHATASE 81 Units/L (46-116); ASPARTATE AMINO TRANSFERASE 10 Units/L (15-37); BLOOD UREA NITROGEN 17 mg/dL (7-18); CALCIUM 8.1 mg/dL (8.5-10.1); CARBON DIOXIDE 32.4 mmol/L (21-32); CHLORIDE 102 mmol/L (98-107); COR CA(FOR HYPOALB) 9.1 mg/dL (8.5-10.1); COR NA(FOR HYPERGLY) 141 mmol/L (136-145); CREATININE 0.67 mg/dL (0.55-1.02); GLUCOSE 127 mg/dL (65-99); MAGNESIUM 2.2 mg/dL (2.0-2.9); POTASSIUM 4.1 mmol/L (3.5-5.1); SODIUM 140 mmol/L (136-145); TOTAL PROTEIN 6.1 g/dL (6.4-8.2); eGFR NON BLACK RACES > 60 (>60)
[2023-08-17 06:38] LABS: PLATELET MORPHOLOGY COMMENT NORMAL (NORMAL); STOMATOCYTES SLIGHT
[2023-08-17] MEDS: DUONEB 0.5 MG/3 MG (3 mL) NEB SCH ×2 (09:18→13:23)
[2023-08-17] MEDS: PULMICORT NEB TX 0.5 MG NEB SCH (09:18)
[2023-08-17] MEDS: LOVENOX INJ 40 MG SYR SC SCH (09:38)
[2023-08-17] MEDS: ZITHROMAX INJ 500 MG VIAL 500 MG in NS 250 ML IV 250 ML IV SCH (09:38)
[2023-08-17] MEDS: SOLU-Medrol 40 MG VIAL IVP SCH (09:39)
[2023-08-17] MEDS: COZAAR PO SCH (09:39)
[2023-08-17] MEDS: EFFEXOR XR 75 MG CAP 24-HR PO SCH (09:39)
[2023-08-17] MEDS: REQUIP PO SCH (09:40)
[2023-08-17] MEDS: ROBITUSSIN DM PO SCH ×2 (09:40→14:57)
[2023-08-17] MEDS: PROTONIX INJ 40 MG VIAL IVP SCH (09:40)
[2023-08-17] MEDS: TUSSIONEX PENNKINETIC SUSP PO SCH (11:04)
[2023-08-17] MEDS: MUCOMYST (RESPIRATORY USE ONLY) NEB SCH (13:23)
[2023-08-17 13:51] VITALS: BP 164/85; PULSE 84; RESP 20; TEMP 97.9; O2SAT 95
== END 2023-08-17 17:00 | disposition home or self-care (01) | DRG 191 ==
LOC: MED/SURG → OBSVTOIN 13:11
PROVIDERS: ADMIT Internal Medicine; ATTEND Internal Medicine
DX: M48.061 Spinal stenosis, lumbar region without neurogenic claudication; K21.00 Gastro-esophageal reflux disease with esophagitis, without bleeding; J44.1 Chronic obstructive pulmonary disease with (acute) exacerbation; F41.1 Generalized anxiety disorder; R73.09 Other abnormal glucose; E87.1 Hypo-osmolality and hyponatremia; Z20.822 Contact with and (suspected) exposure to COVID-19; R06.02 Shortness of breath; I10 Essential (primary) hypertension; J20.8 Acute bronchitis due to other specified organisms; K44.9 Diaphragmatic hernia without obstruction or gangrene

== ENCOUNTER 2024-01-11 12:08 | Inpatient (IN) ==
--- NOTE | 2024-01-11 13:21 | DR.H&P ---
H&P History & Physical for Day of: H&P Date: 01/11/24 Chief Complaint Chief Complaint: ccc, sob Allergies Allergies Allergy/AdvReac Type Severity Reaction Status Date / Time cyclobenzaprine Allergy Verified 05/11/23 14:42 [From Flexeril] History of Present Illness History of Present Illness: PT IS 53 WF, DIRECT ADMIT FROM DR ADRIAN OFFICE WITH CO LAURA AND SOB SINCE ONE WEEK AGO. PT TOOK 7 DAYS OF LEVAQUIN AND A MEDROL DOSE PACK WITHOUT IMPROVEMENT IN SYMPTOMS. PT HAS PMH OF COPD, HTN, RLS, NATALEE, GERD AND OA. PT ADMITTED FOR TREATMENT OF ACUTE ILLNESS. Past Medical History Past Medical History: Asthma, COPD, GERD and Hypertension Past Surgical History Surgical History: and Cholecystectomy Family History Family Medical History: Diabetes Mellitus, Cancer and Hypertension Medications Home Medications: Home Medications Medication Instructions Recorded Confirmed Type aspirin 81 mg tablet,delayed 81 mg PO DAILY 12/31/20 08/11/23 History release famotidine 40 mg tablet (Pepcid) 40 mg PO BID 12/31/20 08/11/23 History pantoprazole 40 mg tablet,delayed 40 mg PO DAILY 12/31/20 08/11/23 History release (Protonix) amlodipine 5 mg tablet 5 mg PO QHS 05/11/23 08/11/23 History cetirizine 10 mg tablet 10 mg PO QHS 05/11/23 08/11/23 History hydrocodone 7.5 mg-acetaminophen 1 tab PO BID PRN 05/11/23 08/11/23 History 325 mg tablet losartan 100 mg tablet 100 mg PO QDAY 05/11/23 08/11/23 History montelukast 10 mg tablet 10 mg PO QDAY 05/11/23 08/11/23 History ropinirole 1 mg tablet 1 mg PO BID 05/11/23 08/11/23 History simvastatin 20 mg tablet 60 mg PO QHS 05/11/23 08/11/23 History albuterol sulfate 2.5 mg/3 mL 3 mg inhalation TID 08/11/23 08/11/23 History (0.083 %) solution for nebulization albuterol sulfate 90 mcg/actuation 2 inh inhalation PRN PRN 08/11/23 08/11/23 History aerosol inhaler Review of Systems Constitutional: Chills, Weakness and Malaise Eyes: No Symptoms Reported ENT: Nose Discharge and Nose Congestion Respiratory: Cough, Shortness of Breath, SOB with Excertion, Pleuritic Pain, Sputum and Wheezing Cardiovascular: No Symptoms Reported Gastrointestinal: Nausea Genitourinary: No Symptoms Reported Musculoskeletal: No Symptoms Reported Skin: No Symptoms Reported Neurological: No Symptoms Reported Oriented: Normal Eyes: Normal Ear: Normal Nose: Discharge Respiratory: Wheezes Throughout Cardiovascular: Normal : Normal Auscultation: Bowel Sounds: Normal Palpation: Normal Tenderness: Normal Skin: Decreased Turgur Musculoskeletal: Back:Lumbar Psychiatric: Anxiety Mood Description: Anxious Affect: Anxious Speech Pattern: Clear Assessment/Plan (1) Acute exacerbation of chronic obstructive pulmonary disease: Narrative Support Text: ACUTE BRONCHITIS ADMIT, IV HYDRATION RESP THERAPY, PRN SUPPLEMENT DUO NEBS, CXR ON ADMISSION COVID RESP SWAB BP CONTROL, VERIFY AND RESUME HOME MEDICATIONS Status: Acute (2) NATALEE (generalized anxiety disorder): Status: Acute (3) Degenerative lumbar spinal stenosis: Status: Acute (4) Hypertension: Status: Acute
[2024-01-11] MEDS: SOLU-Medrol 125 MG VIAL IVP SCH (15:01)
[2024-01-11] MEDS: NORCO 7.5/325 MG TAB PO PRN (15:01)
[2024-01-11] MEDS: ROBITUSSIN DM PO SCH (15:01)
[2024-01-11 15:08] LABS: BASOPHILS # (AUTO) 0.1 X10^3/uL (0.0-0.1); BASOPHILS % (AUTO) 1.1 % (0.2-1.0); EOSINOPHILS # (AUTO) 0.1 x10^3/uL (0.0-0.2); EOSINOPHILS % (AUTO) 1.1 % (0.9-2.9); HEMOGLOBIN 16.2 g/dL (12.0-16.0); LYMPHOCYTES # (AUTO) 2.6 X10^3/uL (1.3-2.9); MEAN CORPUSCULAR HEMOGLOBIN 30.5 pg (27.0-34.0); MEAN CORPUSCULAR VOLUME 92.5 fL (80.0-100.0); MEAN PLATELET VOLUME 8.3 fL (7.4-11.0); MONOCYTES % (AUTO) 8.2 % (0.0-13.0); NEUTROPHILS % (AUTO) 67.6 % (42.0-75.0); PLATELET COUNT 293 X10^3/uL (150.0-450.0); RED BLOOD COUNT 5.29 X10^6/uL (3.5-5.4); RED CELL DISTRIBUTION WIDTH 14.2 % (11.6-16.5); WHITE BLOOD COUNT 11.8 X10^3/uL (3.6-10.0)
[2024-01-11 15:22] LABS: ALANINE AMINOTRANSFERASE 26 Units/L (12-78); ALBUMIN 3.1 g/dL (3.4-5.0); ALKALINE PHOSPHATASE 130 Units/L (46-116); ASPARTATE AMINO TRANSFERASE 16 Units/L (15-37); BLOOD UREA NITROGEN 14 mg/dL (7-18); CALCIUM 8.9 mg/dL (8.5-10.1); CARBON DIOXIDE 29.4 mmol/L (21-32); CHLORIDE 104 mmol/L (98-107); COR CA(FOR HYPOALB) 9.6 mg/dL (8.5-10.1); GLUCOSE 96 mg/dL (65-99); SODIUM 140 mmol/L (136-145); TOTAL PROTEIN 7.2 g/dL (6.4-8.2); eGFR NON BLACK RACES > 60 (>60)
--- NOTE | 2024-01-11 15:56 | RAD ---
EXAM:CHEST, 1 VIEWHISTORY:SOB, COUGH;COMPARISON:Prior study or studies were utilized for comparison during interpretation with the most relevant dated 08/17/2023TECHNIQUE:CHEST, 1 VIEWFINDINGS:Chest:Lines and tubes: NoneMediastinum: Cardiac and mediastinal shadow is within normal limits for size and contour.Pulmonary vessels: No pulmonary vascular congestion.Lung vital: No suspicious airspace opacity.Pleura: No effusion. No pneumothorax.Bones and soft tissues: No acute osseous or soft tissue abnormality.IMPRESSION:1. No acute cardiopulmonary abnormalityTHIS IS AN ELECTRONICALLY VERIFIED FINAL REPORT01/11/2024 3:53 PM - Electronically signed by Jorge Hinton MD
[2024-01-11] MEDS: LOVENOX INJ 40 MG SYR SC SCH (16:46)
[2024-01-11] MEDS: DUONEB 0.5 MG/3 MG (3 mL) NEB SCH (17:26)
[2024-01-11 17:48] LABS: ABG BASE EXCESS 0.6 mmol/L (-2.0-2.0); ABG HCO3 26.6 mmol/L (22-26)
[2024-01-11 17:49] LABS: ABG ALLEN TEST POS
[2024-01-11] MEDS: NS 1,000 ML IV 1,000 ML IV SCH (17:57)
[2024-01-11] MEDS: ZITHROMAX INJ 500 MG VIAL 500 MG in NS 250 ML IV 250 ML IV SCH (17:58)
[2024-01-11] MEDS: ZITHROMAX INJ 500 MG VIAL IV ONE (18:12)
[2024-01-11] MEDS: PULMICORT NEB TX 0.5 MG NEB SCH (20:04)
[2024-01-11] MEDS: ZyrTEC TAB 10 MG PO SCH (21:45)
[2024-01-11] MEDS: NORVASC TAB 5 MG PO SCH (21:45)
[2024-01-11] MEDS: REQUIP PO SCH (21:45)
[2024-01-11] MEDS: PROTONIX INJ 40 MG VIAL IVP SCH (21:45)
[2024-01-12 05:04] LABS: BASOPHILS # (AUTO) 0.1 X10^3/uL (0.0-0.1); HEMOGLOBIN 15.6 g/dL (12.0-16.0); LYMPHOCYTES # (AUTO) 1.3 X10^3/uL (1.3-2.9); MONOCYTES # (AUTO) 0.2 x10^3/uL (0.3-0.8); NEUTROPHILS # (AUTO) 11.8 x10^3/uL (2.2-4.8); WHITE BLOOD COUNT 13.4 X10^3/uL (3.6-10.0)
[2024-01-12 05:10] LABS: BASOPHILS % (AUTO) 0.7 % (0.2-1.0); HEMATOCRIT 48.2 % (36.0-47.0); LYMPHOCYTES % (AUTO) 9.4 % (21.0-51.0); MEAN CORPUSCULAR HGB CONC 32.3 g/dL (33.0-35.0); MEAN CORPUSCULAR VOLUME 92.9 fL (80.0-100.0); MEAN PLATELET VOLUME 8.4 fL (7.4-11.0); MONOCYTES % (AUTO) 1.8 % (0.0-13.0); NEUTROPHILS % (AUTO) 88.1 % (42.0-75.0); PLATELET COUNT 331 X10^3/uL (150.0-450.0); RED BLOOD COUNT 5.19 X10^6/uL (3.5-5.4); RED CELL DISTRIBUTION WIDTH 14.1 % (11.6-16.5)
[2024-01-12 05:14] LABS: ALANINE AMINOTRANSFERASE 27 Units/L (12-78); ALBUMIN 2.9 g/dL (3.4-5.0); ALKALINE PHOSPHATASE 121 Units/L (46-116); ASPARTATE AMINO TRANSFERASE 11 Units/L (15-37); BLOOD UREA NITROGEN 9 mg/dL (7-18); CALCIUM 8.9 mg/dL (8.5-10.1); CARBON DIOXIDE 25.8 mmol/L (21-32); CHLORIDE 106 mmol/L (98-107); COR CA(FOR HYPOALB) 9.8 mg/dL (8.5-10.1); COR NA(FOR HYPERGLY) 141 mmol/L (136-145); CREATININE 0.67 mg/dL (0.55-1.02); GLUCOSE 154 mg/dL (65-99); POTASSIUM 4.6 mmol/L (3.5-5.1); SODIUM 140 mmol/L (136-145); eGFR NON BLACK RACES > 60 (>60)
[2024-01-12] MEDS: PULMICORT NEB TX 0.5 MG NEB ONE (07:18)
[2024-01-12] MEDS: COZAAR PO SCH (08:55)
[2024-01-12] MEDS: SINGULAIR TAB 10 MG PO SCH (08:56)
[2024-01-12] MEDS: TORADOL 30 MG VIAL IVP ONE (09:21)
[2024-01-12 15:35] VITALS: BMI 46.8
--- NOTE | 2024-01-12 17:03 | PCM.PROG ---
Progress Note Progress Note for Day of Date of Exam: 01/12/24 Subjective Subjective: PT IS 53 WF, DIRECT ADMIT FROM DR ADRIAN OFFICE YESTERDAY FOR TREATMENT OF COPD EXACERBATION AFTER FAILING OUTPATIENT TREATMENT. UPON ADMISSION, PT WAS STARTED ON IV HYDRATION, IV ABX, IV STEROIDS, RESPIRATORY THERAPY. WE OBTAINED A RESPIRATORY SWAB THAT WAS NEGATIVE FOR FLU, COVID, RSV AN D CHEST XRAY THAT SHOWED NO ACUTE CARDIOPULMONARY ABNORMALITY. ADMISSION LABS: WBC 11.8, HGB 16.2, BUN 14/CREATININE 0.7. PATIENT HAD NO OVERNIGHT EVENTS. SHE DOES COMPLAIN OF A HEADACHE THIS MORNING. SHE DENIES CHEST PAIN, INCREASED SOB, DIZZINESS, BLURRED VISION. AM LABS: WBC 13.4, HGB 15.6, BUN 9/CREATININE 0.67. MORNING VITALS: 130/34-434-56-98.3-92% ROOM AIR. Past Medical Family Social History Allergies: Allergies cyclobenzaprine [From Flexeril] Allergy (Verified 05/11/23 14:42) Vital Signs and I&O's Vital Signs: Vital Signs Temperature 97.4 F Temperature 98.3 F Pulse Rate [Right Radial] 92 Pulse Rate [Right Radial] 111 Respiratory Rate 18 Respiratory Rate 20 Blood Pressure [Right Arm] 138/69 Blood Pressure [Right Arm] 130/76 O2 Sat by Pulse Oximetry 95 O2 Sat by Pulse Oximetry 92 Intake and Output: Intake & Output 01/09/24 01/10/24 01/11/24 01/12/24 11:59 11:59 11:59 11:59 Intake Total 2597 / 2597 Balance 2597 / 2597 Physical Exam Oriented: Normal Eyes: Normal Ear: Normal Nose: Discharge Respiratory: Diminished Cardiovascular: Normal : Normal Auscultation: Bowel Sounds: Normal Tenderness: Normal Skin: Decreased Turgur Musculoskeletal: Back:Lumbar Psychiatric: Anxiety Mood Description: Anxious Affect: Anxious Speech Pattern: Clear and Appropriate Laboratory and Diagnostics 01/12/24 04:50 01/12/24 04:50 Labs: Laboratory WBC 13.4 X10^3/uL (3.6-10.0) H 01/12/24 04:50 RBC 5.19 X10^6/uL (3.5-5.4) 01/12/24 04:50 Hgb 15.6 g/dL (12.0-16.0) 01/12/24 04:50 Hct 48.2 % (36.0-47.0) H 01/12/24 04:50 MCV 92.9 fL (80.0-100.0) 01/12/24 04:50 MCH 30.0 pg (27.0-34.0) 01/12/24 04:50 MCHC 32.3 g/dL (33.0-35.0) L 01/12/24 04:50 RDW 14.1 % (11.6-16.5) 01/12/24 04:50 Plt Count 331 X10^3/uL (150.0-450.0) 01/12/24 04:50 MPV 8.4 fL (7.4-11.0) 01/12/24 04:50 Neut % (Auto) 88.1 % (42.0-75.0) H 01/12/24 04:50 Lymph % (Auto) 9.4 % (21.0-51.0) L 01/12/24 04:50 Cannon % (Auto) 1.8 % (0.0-13.0) 01/12/24 04:50 Eos % (Auto) 0.0 % (0.9-2.9) L 01/12/24 04:50 Baso % (Auto) 0.7 % (0.2-1.0) 01/12/24 04:50 Neut # (Auto) 11.8 x10^3/uL (2.2-4.8) H 01/12/24 04:50 Lymph # (Auto) 1.3 X10^3/uL (1.3-2.9) 01/12/24 04:50 Cannon # (Auto) 0.2 x10^3/uL (0.3-0.8) L 01/12/24 04:50 Eos # (Auto) 0.0 x10^3/uL (0.0-0.2) 01/12/24 04:50 Baso # (Auto) 0.1 X10^3/uL (0.0-0.1) 01/12/24 04:50 Absolute Nucleated RBC 0.0 /100WBC 01/12/24 04:50 Sample Site Rrad 01/11/24 17:45 ABG pH 7.360 (7.35-7.45) 01/11/24 17:45 ABG pCO2 47.0 mmHg (35.0-45.0) H 01/11/24 17:45 ABG pO2 62.0 mmHg (80.0-100.0) L 01/11/24 17:45 ABG HCO3 26.6 mmol/L (22-26) H 01/11/24 17:45 ABG O2 Saturation 90.0 % (90-100) 01/11/24 17:45 ABG Base Excess 0.6 mmol/L (-2.0-2.0) 01/11/24 17:45 Shahid Test Pos 01/11/24 17:45 A-a Gradient 29.0 mmHg 01/11/24 17:45 FiO2 21.0 01/11/24 17:45 Blood Gas Comments Pt rochelle well. kg 01/11/24 17:45 Sodium 140 mmol/L (136-145) 01/12/24 04:50 Corrected Sodium 141 mmol/L (136-145) 01/12/24 04:50 Potassium 4.6 mmol/L (3.5-5.1) 01/12/24 04:50 Chloride 106 mmol/L (98-107) 01/12/24 04:50 Carbon Dioxide 25.8 mmol/L (21-32) 01/12/24 04:50 BUN 9 mg/dL (7-18) 01/12/24 04:50 Creatinine 0.67 mg/dL (0.55-1.02) 01/12/24 04:50 Est GFR (MDRD) Af Amer > 60 (>60) 01/12/24 04:50 Est GFR (MDRD) Non-Af > 60 (>60) 01/12/24 04:50 Glucose 154 mg/dL (65-99) H 01/12/24 04:50 Calcium 8.9 mg/dL (8.5-10.1) 01/12/24 04:50 Corrected Calcium 9.8 mg/dL (8.5-10.1) 01/12/24 04:50 Total Bilirubin 0.10 mg/dL (0.2-1.0) L 01/12/24 04:50 AST 11 Units/L (15-37) L 01/12/24 04:50 ALT 27 Units/L (12-78) 01/12/24 04:50 Alkaline Phosphatase 121 Units/L (46-116) H 01/12/24 04:50 Total Protein 7.0 g/dL (6.4-8.2) 01/12/24 04:50 Albumin 2.9 g/dL (3.4-5.0) L 01/12/24 04:50 Globulin 4.1 g/dL (2.5-4.5) 01/12/24 04:50 Albumin/Globulin Ratio 0.7 Ratio (1.1-2.1) L 01/12/24 04:50 SARS-CoV-2 (PCR) Negative (NEGATIVE) 01/11/24 14:05 Influenza Type A (PCR) Negative (NEGATIVE) 01/11/24 14:05 Influenza Type B (PCR) Negative (NEGATIVE) 01/11/24 14:05 RSV (PCR) Negative (NEGATIVE) 01/11/24 14:05 Plan (1) Acute exacerbation of chronic obstructive pulmonary disease: Status: Acute Plan: 30MG KETOROLAC X1 DOSE FOR HEADACHE. CONTINUE IV HYDRATION, IV ABX, IV STEROIDS, RESPIRATORY THERAPY, SUPPLMENTAL 02 PRN, HOME MEDICATIONS. (2) NATALEE (generalized anxiety disorder): Status: Acute (3) Degenerative lumbar spinal stenosis: Status: Acute (4) Hypertension: Status: Acute
[2024-01-12] MEDS ORDERED: ZITHROMAX INJ 500 MG VIAL IV ONE (17:33)
[2024-01-13] MEDS: TUSSIONEX PENNKINETIC SUSP PO PRN (04:59)
[2024-01-13 05:36] LABS: BASOPHILS # (AUTO) 0.1 X10^3/uL (0.0-0.1); BASOPHILS % (AUTO) 0.4 % (0.2-1.0); HEMOGLOBIN 14.8 g/dL (12.0-16.0); LYMPHOCYTES # (AUTO) 1.5 X10^3/uL (1.3-2.9); LYMPHOCYTES % (AUTO) 6.6 % (21.0-51.0); MEAN CORPUSCULAR HEMOGLOBIN 29.9 pg (27.0-34.0); MEAN CORPUSCULAR HGB CONC 32.1 g/dL (33.0-35.0); MEAN CORPUSCULAR VOLUME 93.1 fL (80.0-100.0); MEAN PLATELET VOLUME 8.5 fL (7.4-11.0); MONOCYTES # (AUTO) 0.7 x10^3/uL (0.3-0.8); PLATELET COUNT 358 X10^3/uL (150.0-450.0); RED BLOOD COUNT 4.94 X10^6/uL (3.5-5.4); RED CELL DISTRIBUTION WIDTH 14.1 % (11.6-16.5)
[2024-01-13 05:43] LABS: ALANINE AMINOTRANSFERASE 23 Units/L (12-78); ALBUMIN 2.9 g/dL (3.4-5.0); ALKALINE PHOSPHATASE 106 Units/L (46-116); ASPARTATE AMINO TRANSFERASE 7 Units/L (15-37); BLOOD UREA NITROGEN 9 mg/dL (7-18); CALCIUM 8.6 mg/dL (8.5-10.1); CARBON DIOXIDE 29.7 mmol/L (21-32); CHLORIDE 107 mmol/L (98-107); COR CA(FOR HYPOALB) 9.5 mg/dL (8.5-10.1); COR NA(FOR HYPERGLY) 143 mmol/L (136-145); CREATININE 0.66 mg/dL (0.55-1.02); GLUCOSE 136 mg/dL (65-99); POTASSIUM 4.3 mmol/L (3.5-5.1); SODIUM 142 mmol/L (136-145); TOTAL PROTEIN 6.6 g/dL (6.4-8.2); eGFR NON BLACK RACES > 60 (>60)
--- NOTE | 2024-01-13 05:44 | RAD ---
EXAM: CHEST, PA/LAT ADULT HISTORY: COPD; ASTHMA, COPD, HTN, SLEEP APNEA, DDD SX: CSECTION, IHSAN COMPARISON: 01/11/2024 FINDINGS: The trachea is midline. The cardiac silhouette is unremarkable . The lungs are clear without focal infiltrate or effusion. The bony thorax is unremarkable. IMPRESSION: No acute cardiopulmonary disease. THIS IS AN ELECTRONICALLY VERIFIED FINAL REPORT 01/13/2024 5:41 AM - Electronically signed by Stan Alfred MD
[2024-01-13 06:14] LABS: WHITE BLOOD COUNT 22.2 X10^3/uL (3.6-10.0)
[2024-01-13 06:15] LABS: PLATELET MORPHOLOGY COMMENT NORMAL (NORMAL)
[2024-01-13] MEDS ORDERED: CONSULT PHARMACY - POTASSIUM & MAGNESIUM XX SCH (08:00)
[2024-01-13] MEDS: LASIX IVP ONE (10:45)
[2024-01-13] MEDS: SOLU-Medrol 40 MG VIAL IVP SCH (10:46)
[2024-01-13] MEDS: K-DUR TAB 20 MEQ PO ONE (10:47)
[2024-01-13] MEDS: NS 1,000 ML IV 1,000 ML with MAGNESIUM SULFATE 50% INJ VIAL 1 G IV SCH (10:47)
--- NOTE | 2024-01-13 13:46 | PCM.PROG ---
Progress Note Progress Note for Day of Date of Exam: 01/13/24 Subjective Subjective: PT IS 53 WF, DIRECT ADMIT FROM DR ADRIAN OFFICE YESTERDAY FOR TREATMENT OF COPD EXACERBATION AFTER FAILING OUTPATIENT TREATMENT. UPON ADMISSION, PT WAS STARTED ON IV HYDRATION, IV ABX, IV STEROIDS, RESPIRATORY THERAPY. WE OBTAINED A RESPIRATORY SWAB THAT WAS NEGATIVE FOR FLU, COVID, RSV AN D CHEST XRAY THAT SHOWED NO ACUTE CARDIOPULMONARY ABNORMALITY. ADMISSION LABS: WBC 11.8, HGB 16.2, BUN 14/CREATININE 0.7. PATIENT HAD NO OVERNIGHT EVENTS. SHE DOES COMPLAIN OF A HEADACHE THIS MORNING. SHE DENIES CHEST PAIN, INCREASED SOB, DIZZINESS, BLURRED VISION. AM LABS: WBC 22.2, HGB 14.8 VITALS: 129/84-433-24-98.3-95% ROOM AIR. Past Medical Family Social History Allergies: Allergies cyclobenzaprine [From Flexeril] Allergy (Verified 05/11/23 14:42) Vital Signs and I&O's Vital Signs: Vital Signs Temperature 97.7 F Temperature 98.3 F Pulse Rate [Right Radial] 103 Pulse Rate [Right Radial] 94 Respiratory Rate 20 Respiratory Rate 20 Blood Pressure [Left Arm] 129/73 Blood Pressure [Left Arm] 143/86 O2 Sat by Pulse Oximetry 95 O2 Sat by Pulse Oximetry 95 Intake and Output: Intake & Output 01/11/24 01/12/24 01/13/24 01/14/24 11:59 11:59 11:59 11:59 Intake Total 3037 / 3037 1535 / 1535 Balance 3037 / 3037 1535 / 1535 Physical Exam Oriented: Normal Eyes: Normal Ear: Normal Nose: Discharge Respiratory: Diminished Cardiovascular: Normal : Normal Auscultation: Bowel Sounds: Normal Tenderness: Normal Skin: Decreased Turgur Musculoskeletal: Back:Lumbar Psychiatric: Anxiety Mood Description: Anxious Affect: Anxious Speech Pattern: Clear and Appropriate Laboratory and Diagnostics 01/13/24 05:10 01/13/24 05:10 Labs: Laboratory WBC 22.2 X10^3/uL (3.6-10.0) H D 01/13/24 05:10 RBC 4.94 X10^6/uL (3.5-5.4) 01/13/24 05:10 Hgb 14.8 g/dL (12.0-16.0) 01/13/24 05:10 Hct 46.0 % (36.0-47.0) 01/13/24 05:10 MCV 93.1 fL (80.0-100.0) 01/13/24 05:10 MCH 29.9 pg (27.0-34.0) 01/13/24 05:10 MCHC 32.1 g/dL (33.0-35.0) L 01/13/24 05:10 RDW 14.1 % (11.6-16.5) 01/13/24 05:10 Plt Count 358 X10^3/uL (150.0-450.0) 01/13/24 05:10 Plt Count Comment Adequate (ADEQUATE) 01/13/24 05:10 MPV 8.5 fL (7.4-11.0) 01/13/24 05:10 Neut % (Auto) 90.0 % (42.0-75.0) H 01/13/24 05:10 Lymph % (Auto) 6.6 % (21.0-51.0) L 01/13/24 05:10 Riley % (Auto) 3.0 % (0.0-13.0) 01/13/24 05:10 Eos % (Auto) 0.0 % (0.9-2.9) L 01/13/24 05:10 Baso % (Auto) 0.4 % (0.2-1.0) 01/13/24 05:10 Neut # (Auto) 20.0 x10^3/uL (2.2-4.8) H 01/13/24 05:10 Lymph # (Auto) 1.5 X10^3/uL (1.3-2.9) 01/13/24 05:10 Riley # (Auto) 0.7 x10^3/uL (0.3-0.8) 01/13/24 05:10 Eos # (Auto) 0.0 x10^3/uL (0.0-0.2) 01/13/24 05:10 Baso # (Auto) 0.1 X10^3/uL (0.0-0.1) 01/13/24 05:10 Absolute Nucleated RBC 0.0 /100WBC 01/13/24 05:10 Total Counted 100 01/13/24 05:10 Neutrophils % (Manual) 88 % (39-76) H 01/13/24 05:10 Lymphocytes % (Manual) 9 % (13-43) L 01/13/24 05:10 Monocytes % (Manual) 3 % (4-9) L 01/13/24 05:10 Plt Morphology Comment Normal (NORMAL) 01/13/24 05:10 RBC Morphology Normal (NORMAL) 01/13/24 05:10 Sample Site Rrad 01/11/24 17:45 ABG pH 7.360 (7.35-7.45) 01/11/24 17:45 ABG pCO2 47.0 mmHg (35.0-45.0) H 01/11/24 17:45 ABG pO2 62.0 mmHg (80.0-100.0) L 01/11/24 17:45 ABG HCO3 26.6 mmol/L (22-26) H 01/11/24 17:45 ABG O2 Saturation 90.0 % (90-100) 01/11/24 17:45 ABG Base Excess 0.6 mmol/L (-2.0-2.0) 01/11/24 17:45 Shahid Test Pos 01/11/24 17:45 A-a Gradient 29.0 mmHg 01/11/24 17:45 FiO2 21.0 01/11/24 17:45 Blood Gas Comments Pt rochelle well. kg 01/11/24 17:45 Sodium 142 mmol/L (136-145) 01/13/24 05:10 Corrected Sodium 143 mmol/L (136-145) 01/13/24 05:10 Potassium 4.3 mmol/L (3.5-5.1) 01/13/24 05:10 Chloride 107 mmol/L (98-107) 01/13/24 05:10 Carbon Dioxide 29.7 mmol/L (21-32) 01/13/24 05:10 BUN 9 mg/dL (7-18) 01/13/24 05:10 Creatinine 0.66 mg/dL (0.55-1.02) 01/13/24 05:10 Est GFR (MDRD) Af Amer > 60 (>60) 01/13/24 05:10 Est GFR (MDRD) Non-Af > 60 (>60) 01/13/24 05:10 Glucose 136 mg/dL (65-99) H 01/13/24 05:10 Calcium 8.6 mg/dL (8.5-10.1) 01/13/24 05:10 Corrected Calcium 9.5 mg/dL (8.5-10.1) 01/13/24 05:10 Magnesium 1.9 mg/dL (2.0-2.9) L 01/13/24 05:10 Total Bilirubin 0.10 mg/dL (0.2-1.0) L 01/13/24 05:10 AST 7 Units/L (15-37) L 01/13/24 05:10 ALT 23 Units/L (12-78) 01/13/24 05:10 Alkaline Phosphatase 106 Units/L (46-116) 01/13/24 05:10 Total Protein 6.6 g/dL (6.4-8.2) 01/13/24 05:10 Albumin 2.9 g/dL (3.4-5.0) L 01/13/24 05:10 Globulin 3.7 g/dL (2.5-4.5) 01/13/24 05:10 Albumin/Globulin Ratio 0.8 Ratio (1.1-2.1) L 01/13/24 05:10 SARS-CoV-2 (PCR) Negative (NEGATIVE) 01/11/24 14:05 Influenza Type A (PCR) Negative (NEGATIVE) 01/11/24 14:05 Influenza Type B (PCR) Negative (NEGATIVE) 01/11/24 14:05 RSV (PCR) Negative (NEGATIVE) 01/11/24 14:05 Plan (1) Acute exacerbation of chronic obstructive pulmonary disease: Status: Acute Plan: CONTINUE IV HYDRATION, IV ABX, IV STEROIDS DECREASED TO BID, RESPIRATORY THERAPY, SUPPLMENTAL 02 PRN, HOME MEDICATIONS CONTINUED PLAN TO GIVE LASIX 40MG IV X 1 DOSE WITH POTASSIUM REPLACEMENT (2) NATALEE (generalized anxiety disorder): Status: Acute (3) Degenerative lumbar spinal stenosis: Status: Acute (4) Hypertension: Status: Acute
[2024-01-13] MEDS: ULTRAM PO PRN (18:19)
[2024-01-14 06:16] LABS: BASOPHILS # (AUTO) 0.1 X10^3/uL (0.0-0.1); BASOPHILS % (AUTO) 0.3 % (0.2-1.0); EOSINOPHILS % (AUTO) 0.1 % (0.9-2.9); HEMATOCRIT 45.5 % (36.0-47.0); HEMOGLOBIN 14.6 g/dL (12.0-16.0); LYMPHOCYTES # (AUTO) 2.4 X10^3/uL (1.3-2.9); LYMPHOCYTES % (AUTO) 12.4 % (21.0-51.0); MEAN CORPUSCULAR HEMOGLOBIN 30.1 pg (27.0-34.0); MEAN CORPUSCULAR HGB CONC 32.2 g/dL (33.0-35.0); MEAN CORPUSCULAR VOLUME 93.4 fL (80.0-100.0); MEAN PLATELET VOLUME 8.4 fL (7.4-11.0); MONOCYTES # (AUTO) 0.7 x10^3/uL (0.3-0.8); MONOCYTES % (AUTO) 3.7 % (0.0-13.0); NEUTROPHILS # (AUTO) 16.1 x10^3/uL (2.2-4.8); NEUTROPHILS % (AUTO) 83.5 % (42.0-75.0); PLATELET COUNT 341 X10^3/uL (150.0-450.0); RED BLOOD COUNT 4.87 X10^6/uL (3.5-5.4); RED CELL DISTRIBUTION WIDTH 14.2 % (11.6-16.5); WHITE BLOOD COUNT 19.2 X10^3/uL (3.6-10.0)
[2024-01-14 06:20] LABS: ALANINE AMINOTRANSFERASE 18 Units/L (12-78); ALBUMIN 2.9 g/dL (3.4-5.0); ALKALINE PHOSPHATASE 100 Units/L (46-116); ASPARTATE AMINO TRANSFERASE 9 Units/L (15-37); BLOOD UREA NITROGEN 13 mg/dL (7-18); CALCIUM 8.7 mg/dL (8.5-10.1); CHLORIDE 105 mmol/L (98-107); COR CA(FOR HYPOALB) 9.6 mg/dL (8.5-10.1); COR NA(FOR HYPERGLY) 143 mmol/L (136-145); CREATININE 0.63 mg/dL (0.55-1.02); GLUCOSE 133 mg/dL (65-99); MAGNESIUM 2.3 mg/dL (2.0-2.9); POTASSIUM 4.8 mmol/L (3.5-5.1); SODIUM 142 mmol/L (136-145); TOTAL PROTEIN 6.4 g/dL (6.4-8.2); eGFR NON BLACK RACES > 60 (>60)
[2024-01-14] MEDS: ZOFRAN INJ 4 MG VIAL IVP PRN (08:08)
[2024-01-14] MEDS: NS 1,000 ML IV 1,000 ML with MAGNESIUM SULFATE 50% INJ VIAL 1 G IV SCH (09:05)
--- NOTE | 2024-01-14 13:45 | EKG ---
Test Reason : Chest pain Blood Pressure : */* mmHG Vent. Rate : 98 BPM Atrial Rate : 98 BPM P-R Int : 142 ms QRS Dur : 84 ms QT Int : 342 ms P-R-T Axes : 58 51 46 degrees QTc Int : 436 ms Normal sinus rhythm Normal ECG When compared with ECG of 18-MAY-2023 13:32, premature supraventricular complexes are no longer present Confirmed by Erich Altamirano ([id number]) on 01/14/2024 2:12:47 PM Referred By: Confirmed By: Erich Altamirano
[2024-01-14] MEDS: TORADOL 30 MG VIAL IVP ONE (13:49)
--- NOTE | 2024-01-14 18:09 | PCM.PROG ---
Progress Note Progress Note for Day of Date of Exam: 01/14/24 Subjective Subjective: PT IS 53 WF, DIRECT ADMIT FROM DR ADRIAN OFFICE ON 01/11/24 FOR TREATMENT OF COPD EXACERBATION AFTER FAILING OUTPATIENT TREATMENT. UPON ADMISSION, PT WAS STARTED ON IV HYDRATION, IV ABX, IV STEROIDS, RESPIRATORY THERAPY. WE OBTAINED A RESPIRATORY SWAB THAT WAS NEGATIVE FOR FLU, COVID, RSV AN D CHEST XRAY THAT SHOWED NO ACUTE CARDIOPULMONARY ABNORMALITY. ADMISSION LABS: WBC 11.8, HGB 16.2, BUN 14/CREATININE 0.7. YESTERDAY, WE OBTAINED A REPEAT CHEST XRAY AND IT SHOWED NO ABNORMALITY. AM LABS: WBC 19.2, HGB 14.6, BUN 13/CREATININE 0.63. AM VITALS: 141/95-288-00-97.7-93% ROOM AIR. Past Medical Family Social History Allergies: Allergies cyclobenzaprine [From Flexeril] Allergy (Verified 05/11/23 14:42) Vital Signs and I&O's Vital Signs: Vital Signs Temperature 97.6 F Pulse Rate [Right Radial] 92 Respiratory Rate 18 Respiratory Rate 18 Blood Pressure [Left Arm] 127/65 O2 Sat by Pulse Oximetry 93 Intake and Output: Intake & Output 01/12/24 01/13/24 01/14/24 01/15/24 11:59 11:59 11:59 11:59 Intake Total 3037 / 3037 2195 / 2195 2347 / 2347 1318 / 1318 Balance 3037 / 3037 2195 / 2195 2347 / 2347 1318 / 1318 Physical Exam Oriented: Normal Eyes: Normal Ear: Normal Nose: Discharge Respiratory: Diminished Cardiovascular: Normal : Normal Auscultation: Bowel Sounds: Normal Tenderness: Normal Skin: Decreased Turgur Musculoskeletal: Back:Lumbar Psychiatric: Anxiety Mood Description: Anxious Affect: Anxious Speech Pattern: Clear and Appropriate Laboratory and Diagnostics 01/14/24 05:33 01/14/24 05:33 Labs: 01/14/24 10:47 Sputum - Expectorated Sputum - Final Laboratory WBC 19.2 X10^3/uL (3.6-10.0) H 01/14/24 05:33 RBC 4.87 X10^6/uL (3.5-5.4) 01/14/24 05:33 Hgb 14.6 g/dL (12.0-16.0) 01/14/24 05:33 Hct 45.5 % (36.0-47.0) 01/14/24 05:33 MCV 93.4 fL (80.0-100.0) 01/14/24 05:33 MCH 30.1 pg (27.0-34.0) 01/14/24 05:33 MCHC 32.2 g/dL (33.0-35.0) L 01/14/24 05:33 RDW 14.2 % (11.6-16.5) 01/14/24 05:33 Plt Count 341 X10^3/uL (150.0-450.0) 01/14/24 05:33 Plt Count Comment Adequate (ADEQUATE) 01/13/24 05:10 MPV 8.4 fL (7.4-11.0) 01/14/24 05:33 Neut % (Auto) 83.5 % (42.0-75.0) H 01/14/24 05:33 Lymph % (Auto) 12.4 % (21.0-51.0) L 01/14/24 05:33 Jerome % (Auto) 3.7 % (0.0-13.0) 01/14/24 05:33 Eos % (Auto) 0.1 % (0.9-2.9) L 01/14/24 05:33 Baso % (Auto) 0.3 % (0.2-1.0) 01/14/24 05:33 Neut # (Auto) 16.1 x10^3/uL (2.2-4.8) H 01/14/24 05:33 Lymph # (Auto) 2.4 X10^3/uL (1.3-2.9) 01/14/24 05:33 Jerome # (Auto) 0.7 x10^3/uL (0.3-0.8) 01/14/24 05:33 Eos # (Auto) 0.0 x10^3/uL (0.0-0.2) 01/14/24 05:33 Baso # (Auto) 0.1 X10^3/uL (0.0-0.1) 01/14/24 05:33 Absolute Nucleated RBC 0.1 /100WBC 01/14/24 05:33 Total Counted 100 01/13/24 05:10 Neutrophils % (Manual) 88 % (39-76) H 01/13/24 05:10 Lymphocytes % (Manual) 9 % (13-43) L 01/13/24 05:10 Monocytes % (Manual) 3 % (4-9) L 01/13/24 05:10 Plt Morphology Comment Normal (NORMAL) 01/13/24 05:10 RBC Morphology Normal (NORMAL) 01/13/24 05:10 Sample Site Rrad 01/11/24 17:45 ABG pH 7.360 (7.35-7.45) 01/11/24 17:45 ABG pCO2 47.0 mmHg (35.0-45.0) H 01/11/24 17:45 ABG pO2 62.0 mmHg (80.0-100.0) L 01/11/24 17:45 ABG HCO3 26.6 mmol/L (22-26) H 01/11/24 17:45 ABG O2 Saturation 90.0 % (90-100) 01/11/24 17:45 ABG Base Excess 0.6 mmol/L (-2.0-2.0) 01/11/24 17:45 Shahid Test Pos 01/11/24 17:45 A-a Gradient 29.0 mmHg 01/11/24 17:45 FiO2 21.0 01/11/24 17:45 Blood Gas Comments Pt rochelle well. kg 01/11/24 17:45 Sodium 142 mmol/L (136-145) 01/14/24 05:33 Corrected Sodium 143 mmol/L (136-145) 01/14/24 05:33 Potassium 4.8 mmol/L (3.5-5.1) 01/14/24 05:33 Chloride 105 mmol/L (98-107) 01/14/24 05:33 Carbon Dioxide 33.0 mmol/L (21-32) H 01/14/24 05:33 BUN 13 mg/dL (7-18) 01/14/24 05:33 Creatinine 0.63 mg/dL (0.55-1.02) 01/14/24 05:33 Est GFR (MDRD) Af Amer > 60 (>60) 01/14/24 05:33 Est GFR (MDRD) Non-Af > 60 (>60) 01/14/24 05:33 Glucose 133 mg/dL (65-99) H 01/14/24 05:33 Calcium 8.7 mg/dL (8.5-10.1) 01/14/24 05:33 Corrected Calcium 9.6 mg/dL (8.5-10.1) 01/14/24 05:33 Magnesium 2.3 mg/dL (2.0-2.9) 01/14/24 05:33 Total Bilirubin 0.20 mg/dL (0.2-1.0) 01/14/24 05:33 AST 9 Units/L (15-37) L 01/14/24 05:33 ALT 18 Units/L (12-78) 01/14/24 05:33 Alkaline Phosphatase 100 Units/L (46-116) 01/14/24 05:33 Creatine Kinase 20 Units/L (26-192) L 01/14/24 13:35 Troponin I High Sens 4.6 ng/L (4.0-60.0) 01/14/24 13:35 Total Protein 6.4 g/dL (6.4-8.2) 01/14/24 05:33 Albumin 2.9 g/dL (3.4-5.0) L 01/14/24 05:33 Globulin 3.5 g/dL (2.5-4.5) 01/14/24 05:33 Albumin/Globulin Ratio 0.8 Ratio (1.1-2.1) L 01/14/24 05:33 SARS-CoV-2 (PCR) Negative (NEGATIVE) 01/11/24 14:05 Influenza Type A (PCR) Negative (NEGATIVE) 01/11/24 14:05 Influenza Type B (PCR) Negative (NEGATIVE) 01/11/24 14:05 RSV (PCR) Negative (NEGATIVE) 01/11/24 14:05 Plan (1) Acute exacerbation of chronic obstructive pulmonary disease: Status: Acute Plan: CONTINUE IV HYDRATION, IV ABX, IV STEROIDS DECREASED TO BID, RESPIRATORY THERAPY, SUPPLMENTAL 02 PRN, HOME MEDICATIONS CONTINUED PLAN TO OBTAIN SPUTUM CULTURE. (2) NATALEE (generalized anxiety disorder): Status: Acute (3) Degenerative lumbar spinal stenosis: Status: Acute (4) Hypertension: Status: Acute
[2024-01-15 08:29] LABS: ABG BASE EXCESS 7.1 mmol/L (-2.0-2.0)
[2024-01-15 08:30] LABS: ABG ALLEN TEST POS; ABG HCO3 33.4 mmol/L (22-26)
[2024-01-15] MEDS: K-DUR TAB 20 MEQ PO ONE (09:57)
[2024-01-15] MEDS: LASIX IVP ONE (09:57)
--- NOTE | 2024-01-15 10:21 | RAD ---
EXAM:CHEST, PA/LAT ADULTHISTORY:headache, sob;COMPARISON:01/13/2024FINDINGS:The trachea is midline. The cardiac silhouette is unremarkable . The lungs are clear without focal infiltrate or effusion. The bony thorax is unremarkable.IMPRESSION:No acute cardiopulmonary disease.THIS IS AN ELECTRONICALLY VERIFIED FINAL REPORT01/15/2024 10:17 AM - Electronically signed by Gregory Stone MD
--- NOTE | 2024-01-15 11:02 | CT ---
EXAM:BRAIN W/O CONHISTORY:headache;COMPARISON:Head CT 05/19/2023TECHNIQUE:Multiple CT axial images of the brain were obtained without IV contrast. Coronal and sagittal images were reconstructed. Dose reduction techniques included Automated Exposure Control (AEC) and adjustment of mA and kV.FINDINGS:Minimal age-related changes are present. Otherwise gonzáles and white matter have normal differentiation. There is no mass, shift, or hemorrhage. Cerebellar tonsils are at an appropriate level.Mucosal thickening is present in the right frontal sinus probably indicating chronic sinusitis. But there is no fluid to suggest acute sinusitis. No mastoid effusion.IMPRESSION:1. No acute finding2. Chronic frontal sinusitisTHIS IS AN ELECTRONICALLY VERIFIED FINAL REPORT01/15/2024 10:59 AM - Electronically signed by Natan Bueno MD
--- NOTE | 2024-01-15 11:08 | CT ---
EXAM:SINUS W/O CONHISTORY:headache, sinus problems;COMPARISON:NoneTECHNIQUE:Multip le CT axial images of the sinuseswere obtained without IV contrast. Coronal and sagittal images were reconstructed. Dose reduction techniques included Automated Exposure Control (AEC) and adjustment of mA and kV.FINDINGS:Small amount of retained secretions are seen in the left maxillary sinus. Left mucous cyst is also present in the left maxillary sinus.There is lobular mucosal thickening in the right frontal sinus from chronic sinusitis. No other mucosal thickening. There is no fluid to suggest acute sinusitis.The nasal cavity is patent with no mass or polyp. Left sejal bullosa is present with mucosal thickening internally. Nasal septum deviated to the right. Hiatus semilunaris patent bilaterally.Orbital song are intact. Globes and orbital contents appear normal.A few of the teeth have been extracted. Many of the remaining teeth have large erosions and caries. 2 of the right maxillary molars have lucency around the roots consistent with periapical tooth abscesses. Tooth number 2 and 3.Superficial and deep fat planes of the neck are intact.IMPRESSION:1. Chronic right frontal sinusitis2. Right maxillary molar periapical abscessesTHIS IS AN ELECTRONICALLY VERIFIED FINAL REPORT01/15/2024 11:05 AM - Electronically signed by Natan Bueno MD
--- NOTE | 2024-01-15 12:12 | PCM.PROG ---
Progress Note Progress Note for Day of Date of Exam: 01/15/24 Subjective Subjective: PT IS 53 WF, DIRECT ADMIT FROM DR ADRIAN OFFICE ON 01/11/24 FOR TREATMENT OF COPD EXACERBATION AFTER FAILING OUTPATIENT TREATMENT. UPON ADMISSION, PT WAS STARTED ON IV HYDRATION, IV ABX, IV STEROIDS, RESPIRATORY THERAPY. WE OBTAINED A RESPIRATORY SWAB THAT WAS NEGATIVE FOR FLU, COVID, RSV AN D CHEST XRAY THAT SHOWED NO ACUTE CARDIOPULMONARY ABNORMALITY. ADMISSION LABS: WBC 11.8, HGB 16.2, BUN 14/CREATININE 0.7. ON 01/13/24, WE OBTAINED A REPEAT CHEST XRAY AND IT SHOWED NO ABNORMALITY. YESTERDAY WE OBTAINED AN EKG THAT SHOWED NORMAL SINUS RHYTHM AND CARDIAC ENZYMES THAT WERE NEGATIVE. SPUTUM CULTURE CAME BACK NEGATIVE. PATIENT HAD AN ABG THIS MORNING THAT SHOWED PH 7.4, PC02 54, P02 66, BE 7.1, HCO3 33.4, 02 SAT 93, FI02 21. AM LABS: WBC 19.2, HGB 14.6, BUN 13/CREATININE 0.63. AM VITALS: 178/95-88-20-97.4-95% ROOM AIR. PATIENT HAS COMPLAINTS OF A RECURRENT HEADACHE AND WE HAVE TREATED THE PATIENT WITH TORADOL WITH RESOLVEMENT. Past Medical Family Social History Allergies: Allergies cyclobenzaprine [From Flexeril] Allergy (Verified 05/11/23 14:42) Vital Signs and I&O's Vital Signs: Vital Signs Temperature 97.4 F Temperature 97.5 F Pulse Rate [Right Radial] 88 Pulse Rate [Right Radial] 84 Pulse Rate 82 Respiratory Rate 20 Respiratory Rate 20 Respiratory Rate 20 Respiratory Rate 18 Blood Pressure [Left Arm] 178/95 Blood Pressure [Left Arm] 158/79 O2 Sat by Pulse Oximetry 97 O2 Sat by Pulse Oximetry 95 O2 Sat by Pulse Oximetry 90 Intake and Output: Intake & Output 01/12/24 01/13/24 01/14/24 01/15/24 11:59 11:59 11:59 11:59 Intake Total 3037 / 3037 2195 / 2195 2347 / 2347 3529 / 3529 Balance 3037 / 3037 2195 / 2195 2347 / 2347 3529 / 3529 Physical Exam Oriented: Normal Eyes: Normal Ear: Normal Nose: Discharge Respiratory: Diminished Cardiovascular: Normal : Normal Auscultation: Bowel Sounds: Normal Tenderness: Normal Skin: Decreased Turgur Musculoskeletal: Back:Lumbar Psychiatric: Anxiety Mood Description: Anxious Affect: Anxious Speech Pattern: Clear and Appropriate Laboratory and Diagnostics 01/14/24 05:33 01/14/24 05:33 Labs: 01/14/24 10:47 Sputum - Expectorated Sputum Sputum Culture - Preliminary 01/14/24 10:47 Sputum - Expectorated Sputum - Final Laboratory WBC 19.2 X10^3/uL (3.6-10.0) H 01/14/24 05:33 RBC 4.87 X10^6/uL (3.5-5.4) 01/14/24 05:33 Hgb 14.6 g/dL (12.0-16.0) 01/14/24 05:33 Hct 45.5 % (36.0-47.0) 01/14/24 05:33 MCV 93.4 fL (80.0-100.0) 01/14/24 05:33 MCH 30.1 pg (27.0-34.0) 01/14/24 05:33 MCHC 32.2 g/dL (33.0-35.0) L 01/14/24 05:33 RDW 14.2 % (11.6-16.5) 01/14/24 05:33 Plt Count 341 X10^3/uL (150.0-450.0) 01/14/24 05:33 Plt Count Comment Adequate (ADEQUATE) 01/13/24 05:10 MPV 8.4 fL (7.4-11.0) 01/14/24 05:33 Neut % (Auto) 83.5 % (42.0-75.0) H 01/14/24 05:33 Lymph % (Auto) 12.4 % (21.0-51.0) L 01/14/24 05:33 [place] % (Auto) 3.7 % (0.0-13.0) 01/14/24 05:33 Eos % (Auto) 0.1 % (0.9-2.9) L 01/14/24 05:33 Baso % (Auto) 0.3 % (0.2-1.0) 01/14/24 05:33 Neut # (Auto) 16.1 x10^3/uL (2.2-4.8) H 01/14/24 05:33 Lymph # (Auto) 2.4 X10^3/uL (1.3-2.9) 01/14/24 05:33 [place] # (Auto) 0.7 x10^3/uL (0.3-0.8) 01/14/24 05:33 Eos # (Auto) 0.0 x10^3/uL (0.0-0.2) 01/14/24 05:33 Baso # (Auto) 0.1 X10^3/uL (0.0-0.1) 01/14/24 05:33 Absolute Nucleated RBC 0.1 /100WBC 01/14/24 05:33 Total Counted 100 01/13/24 05:10 Neutrophils % (Manual) 88 % (39-76) H 01/13/24 05:10 Lymphocytes % (Manual) 9 % (13-43) L 01/13/24 05:10 Monocytes % (Manual) 3 % (4-9) L 01/13/24 05:10 Plt Morphology Comment Normal (NORMAL) 01/13/24 05:10 RBC Morphology Normal (NORMAL) 01/13/24 05:10 Sample Site Lra 01/15/24 08:25 ABG pH 7.400 (7.35-7.45) 01/15/24 08:25 ABG pCO2 54.0 mmHg (35.0-45.0) H* 01/15/24 08:25 ABG pO2 66.0 mmHg (80.0-100.0) L 01/15/24 08:25 ABG HCO3 33.4 mmol/L (22-26) H* 01/15/24 08:25 ABG O2 Saturation 93.0 % (90-100) 01/15/24 08:25 ABG Base Excess 7.1 mmol/L (-2.0-2.0) H 01/15/24 08:25 Shahid Test Pos 01/15/24 08:25 A-a Gradient 16.0 mmHg 01/15/24 08:25 FiO2 21.0 01/15/24 08:25 Blood Gas Comments Pt rochelle well eb 01/15/24 08:25 Sodium 142 mmol/L (136-145) 01/14/24 05:33 Corrected Sodium 143 mmol/L (136-145) 01/14/24 05:33 Potassium 4.8 mmol/L (3.5-5.1) 01/14/24 05:33 Chloride 105 mmol/L (98-107) 01/14/24 05:33 Carbon Dioxide 33.0 mmol/L (21-32) H 01/14/24 05:33 BUN 13 mg/dL (7-18) 01/14/24 05:33 Creatinine 0.63 mg/dL (0.55-1.02) 01/14/24 05:33 Est GFR (MDRD) Af Amer > 60 (>60) 01/14/24 05:33 Est GFR (MDRD) Non-Af > 60 (>60) 01/14/24 05:33 Glucose 133 mg/dL (65-99) H 01/14/24 05:33 Calcium 8.7 mg/dL (8.5-10.1) 01/14/24 05:33 Corrected Calcium 9.6 mg/dL (8.5-10.1) 01/14/24 05:33 Magnesium 2.3 mg/dL (2.0-2.9) 01/14/24 05:33 Total Bilirubin 0.20 mg/dL (0.2-1.0) 01/14/24 05:33 AST 9 Units/L (15-37) L 01/14/24 05:33 ALT 18 Units/L (12-78) 01/14/24 05:33 Alkaline Phosphatase 100 Units/L (46-116) 01/14/24 05:33 Creatine Kinase 20 Units/L (26-192) L 01/14/24 13:35 Troponin I High Sens 4.6 ng/L (4.0-60.0) 01/14/24 13:35 Total Protein 6.4 g/dL (6.4-8.2) 01/14/24 05:33 Albumin 2.9 g/dL (3.4-5.0) L 01/14/24 05:33 Globulin 3.5 g/dL (2.5-4.5) 01/14/24 05:33 Albumin/Globulin Ratio 0.8 Ratio (1.1-2.1) L 01/14/24 05:33 SARS-CoV-2 (PCR) Negative (NEGATIVE) 01/11/24 14:05 Influenza Type A (PCR) Negative (NEGATIVE) 01/11/24 14:05 Influenza Type B (PCR) Negative (NEGATIVE) 01/11/24 14:05 RSV (PCR) Negative (NEGATIVE) 01/11/24 14:05 Plan (1) Acute exacerbation of chronic obstructive pulmonary disease: Status: Acute Plan: LASIX 40MG IM WITH PO POTASSIUM X1DOSE, REPEAT CHEST XRAY, OBTAIN CT BRAIN, CT SINUS STAT. START BUTALBITAL PRN. CONTINUE IV HYDRATION, IV ABX, IV STEROIDS, RESPIRATORY THERAPY, SUPPLMENTAL 02 PRN, HOME MEDICATIONS. (2) NATALEE (generalized anxiety disorder): Status: Acute (3) Degenerative lumbar spinal stenosis: Status: Acute (4) Hypertension: Status: Acute
[2024-01-15] MEDS: FIORICET TAB PO PRN (15:20)
[2024-01-15] MEDS: COLACE CAP 100 MG PO PRN (20:12)
[2024-01-16 05:34] LABS: BASOPHILS # (AUTO) 0.1 X10^3/uL (0.0-0.1); BASOPHILS % (AUTO) 0.3 % (0.2-1.0); HEMATOCRIT 44.5 % (36.0-47.0); HEMOGLOBIN 14.4 g/dL (12.0-16.0); LYMPHOCYTES # (AUTO) 2.4 X10^3/uL (1.3-2.9); LYMPHOCYTES % (AUTO) 15.5 % (21.0-51.0); MEAN CORPUSCULAR HEMOGLOBIN 29.9 pg (27.0-34.0); MEAN CORPUSCULAR HGB CONC 32.3 g/dL (33.0-35.0); MEAN CORPUSCULAR VOLUME 92.4 fL (80.0-100.0); MEAN PLATELET VOLUME 8.2 fL (7.4-11.0); MONOCYTES # (AUTO) 0.6 x10^3/uL (0.3-0.8); MONOCYTES % (AUTO) 3.6 % (0.0-13.0); NEUTROPHILS # (AUTO) 12.6 x10^3/uL (2.2-4.8); NEUTROPHILS % (AUTO) 80.6 % (42.0-75.0); PLATELET COUNT 340 X10^3/uL (150.0-450.0); RED BLOOD COUNT 4.81 X10^6/uL (3.5-5.4); RED CELL DISTRIBUTION WIDTH 13.9 % (11.6-16.5); WHITE BLOOD COUNT 15.7 X10^3/uL (3.6-10.0)
[2024-01-16 05:43] LABS: ALANINE AMINOTRANSFERASE 25 Units/L (12-78); ALBUMIN 2.8 g/dL (3.4-5.0); ALKALINE PHOSPHATASE 85 Units/L (46-116); ASPARTATE AMINO TRANSFERASE 11 Units/L (15-37); BLOOD UREA NITROGEN 18 mg/dL (7-18); CALCIUM 8.6 mg/dL (8.5-10.1); CHLORIDE 99 mmol/L (98-107); COR CA(FOR HYPOALB) 9.6 mg/dL (8.5-10.1); COR NA(FOR HYPERGLY) 141 mmol/L (136-145); CREATININE 0.68 mg/dL (0.55-1.02); GLUCOSE 125 mg/dL (65-99); POTASSIUM 4.4 mmol/L (3.5-5.1); SODIUM 140 mmol/L (136-145); TOTAL PROTEIN 6.2 g/dL (6.4-8.2); eGFR NON BLACK RACES > 60 (>60)
[2024-01-16 06:11] LABS: METAMYELOCYTES % 4; MYELOCYTES % 1
[2024-01-16 06:14] LABS: PLATELET MORPHOLOGY COMMENT NORMAL (NORMAL); STOMATOCYTES SLIGHT
[2024-01-16] MEDS: TORADOL 30 MG VIAL ONE (09:28)
--- NOTE | 2024-01-16 12:04 | PCM.PROG ---
Progress Note Progress Note for Day of Date of Exam: 01/16/24 Subjective Subjective: Patient seen at bedside, no acute events overnight. She states she is feeling slightly better. She still feels pressure in the forehead. She is being treated for COPD exacerbation. She is currently on IV antibiotics and steroids. She has been getting bronchodilators. She still has some wheezing and cough. Patient is currently on room air. She has been ambulating in the room. CT-sinus done yesterday showed chronic right frontal sinusitis and right maxillary molar periapical abscess. Labs/imaging reviewed -WBC 15.7 Hgb 14.4 BUN/Cr: 18/0.68 glucose 125 -ABG reviewed Plan: Continue IV azithromycin and solumedrol. Follow pending Cx. Continue bronchodilators prn. Continue decongestants, add Flonase, continue cetirizine. Continue toradol prn. Continue home medications. Replace electrolytes as per protocol. Monitor AM labs/imaging Past Medical Family Social History Allergies: Allergies cyclobenzaprine [From Flexeril] Allergy (Verified 05/11/23 14:42) Vital Signs and I&O's Vital Signs: Vital Signs Temperature 97.6 F Temperature 97.7 F Pulse Rate [Right Radial] 90 Pulse Rate [Right Radial] 79 Respiratory Rate 18 Respiratory Rate 20 Blood Pressure [Left Arm] 131/64 Blood Pressure [Left Arm] 146/80 O2 Sat by Pulse Oximetry 96 O2 Sat by Pulse Oximetry 96 O2 Sat by Pulse Oximetry 93 Intake and Output: Intake & Output 01/13/24 01/14/24 01/15/24 01/16/24 23:59 23:59 23:59 23:59 Intake Total 2814 / 2814 3241 / 3241 3076 / 3076 563 / 563 Balance 2814 / 2814 3241 / 3241 3076 / 3076 563 / 563 Physical Exam Oriented: Normal Eyes: Normal Ear: Normal Respiratory: Diminished and Wheezes Cardiovascular: Normal Auscultation: Bowel Sounds: Normal Tenderness: Normal Skin: Decreased Turgur Musculoskeletal: Back:Lumbar Psychiatric: Anxiety Mood Description: Calm Affect: Normal Speech Pattern: Clear and Appropriate Laboratory and Diagnostics 01/16/24 04:43 01/16/24 04:43 Labs: 01/14/24 10:47 Sputum - Expectorated Sputum Sputum Culture - Final 01/14/24 10:47 Sputum - Expectorated Sputum - Final Laboratory WBC 15.7 X10^3/uL (3.6-10.0) H 01/16/24 04:43 RBC 4.81 X10^6/uL (3.5-5.4) 01/16/24 04:43 Hgb 14.4 g/dL (12.0-16.0) 01/16/24 04:43 Hct 44.5 % (36.0-47.0) 01/16/24 04:43 MCV 92.4 fL (80.0-100.0) 01/16/24 04:43 MCH 29.9 pg (27.0-34.0) 01/16/24 04:43 MCHC 32.3 g/dL (33.0-35.0) L 01/16/24 04:43 RDW 13.9 % (11.6-16.5) 01/16/24 04:43 Plt Count 340 X10^3/uL (150.0-450.0) 01/16/24 04:43 Plt Count Comment Adequate (ADEQUATE) 01/16/24 04:43 MPV 8.2 fL (7.4-11.0) 01/16/24 04:43 Neut % (Auto) 80.6 % (42.0-75.0) H 01/16/24 04:43 Lymph % (Auto) 15.5 % (21.0-51.0) L 01/16/24 04:43 [place] % (Auto) 3.6 % (0.0-13.0) 01/16/24 04:43 Eos % (Auto) 0.0 % (0.9-2.9) L 01/16/24 04:43 Baso % (Auto) 0.3 % (0.2-1.0) 01/16/24 04:43 Neut # (Auto) 12.6 x10^3/uL (2.2-4.8) H 01/16/24 04:43 Lymph # (Auto) 2.4 X10^3/uL (1.3-2.9) 01/16/24 04:43 [place] # (Auto) 0.6 x10^3/uL (0.3-0.8) 01/16/24 04:43 Eos # (Auto) 0.0 x10^3/uL (0.0-0.2) 01/16/24 04:43 Baso # (Auto) 0.1 X10^3/uL (0.0-0.1) 01/16/24 04:43 Absolute Nucleated RBC 0.0 /100WBC 01/16/24 04:43 Total Counted 100 01/16/24 04:43 Neutrophils % (Manual) 72 % (39-76) 01/16/24 04:43 Lymphocytes % (Manual) 19 % (13-43) 01/16/24 04:43 Monocytes % (Manual) 4 % (4-9) 01/16/24 04:43 Metamyelocytes % 4 01/16/24 04:43 Myelocytes % 1 01/16/24 04:43 Atypical Lymphocytes Few A 01/16/24 04:43 Plt Morphology Comment Normal (NORMAL) 01/16/24 04:43 RBC Morphology Abnormal (NORMAL) A 01/16/24 04:43 Stomatocytes Slight A 01/16/24 04:43 Sample Site Lra 01/15/24 08:25 ABG pH 7.400 (7.35-7.45) 01/15/24 08:25 ABG pCO2 54.0 mmHg (35.0-45.0) H* 01/15/24 08:25 ABG pO2 66.0 mmHg (80.0-100.0) L 01/15/24 08:25 ABG HCO3 33.4 mmol/L (22-26) H* 01/15/24 08:25 ABG O2 Saturation 93.0 % (90-100) 01/15/24 08:25 ABG Base Excess 7.1 mmol/L (-2.0-2.0) H 01/15/24 08:25 Shahid Test Pos 01/15/24 08:25 A-a Gradient 16.0 mmHg 01/15/24 08:25 FiO2 21.0 01/15/24 08:25 Blood Gas Comments Pt rochelle well eb 01/15/24 08:25 Sodium 140 mmol/L (136-145) 01/16/24 04:43 Corrected Sodium 141 mmol/L (136-145) 01/16/24 04:43 Potassium 4.4 mmol/L (3.5-5.1) 01/16/24 04:43 Chloride 99 mmol/L (98-107) 01/16/24 04:43 Carbon Dioxide 33.0 mmol/L (21-32) H 01/16/24 04:43 BUN 18 mg/dL (7-18) 01/16/24 04:43 Creatinine 0.68 mg/dL (0.55-1.02) 01/16/24 04:43 Est GFR (MDRD) Af Amer > 60 (>60) 01/16/24 04:43 Est GFR (MDRD) Non-Af > 60 (>60) 01/16/24 04:43 Glucose 125 mg/dL (65-99) H 01/16/24 04:43 Calcium 8.6 mg/dL (8.5-10.1) 01/16/24 04:43 Corrected Calcium 9.6 mg/dL (8.5-10.1) 01/16/24 04:43 Magnesium 2.3 mg/dL (2.0-2.9) 01/14/24 05:33 Total Bilirubin 0.20 mg/dL (0.2-1.0) 01/16/24 04:43 AST 11 Units/L (15-37) L 01/16/24 04:43 ALT 25 Units/L (12-78) 01/16/24 04:43 Alkaline Phosphatase 85 Units/L (46-116) 01/16/24 04:43 Creatine Kinase 20 Units/L (26-192) L 01/14/24 13:35 Troponin I High Sens 4.6 ng/L (4.0-60.0) 01/14/24 13:35 Total Protein 6.2 g/dL (6.4-8.2) L 01/16/24 04:43 Albumin 2.8 g/dL (3.4-5.0) L 01/16/24 04:43 Globulin 3.4 g/dL (2.5-4.5) 01/16/24 04:43 Albumin/Globulin Ratio 0.8 Ratio (1.1-2.1) L 01/16/24 04:43 SARS-CoV-2 (PCR) Negative (NEGATIVE) 01/11/24 14:05 Influenza Type A (PCR) Negative (NEGATIVE) 01/11/24 14:05 Influenza Type B (PCR) Negative (NEGATIVE) 01/11/24 14:05 RSV (PCR) Negative (NEGATIVE) 01/11/24 14:05 Plan (1) Acute exacerbation of chronic obstructive pulmonary disease: Status: Acute (2) Sinusitis: Status: Acute Qualifiers: Sinusitis location: frontal Chronicity: chronic Qualified Code(s): J32.1 - Chronic frontal sinusitis (3) Tooth abscess: Status: Acute (4) NATALEE (generalized anxiety disorder): Status: Acute (5) Degenerative lumbar spinal stenosis: Status: Acute (6) Hypertension: Status: Acute Qualifiers: Hypertension type: primary hypertension Qualified Code(s): I10 - Esse ntial (primary) hypertension
[2024-01-16] MEDS: FLONASE NASAL SPRAY ENOSTRIL SCH (13:22)
[2024-01-16] MEDS: ZITHROMAX INJ 500 MG VIAL IV ONE (17:43)
[2024-01-17 05:14] LABS: HEMOGLOBIN 14.7 g/dL (12.0-16.0); MEAN CORPUSCULAR HEMOGLOBIN 30.2 pg (27.0-34.0); MEAN PLATELET VOLUME 8.4 fL (7.4-11.0); RED BLOOD COUNT 4.86 X10^6/uL (3.5-5.4); RED CELL DISTRIBUTION WIDTH 14.1 % (11.6-16.5)
[2024-01-17 05:22] LABS: BASOPHILS % (AUTO) 0.2 % (0.2-1.0); LYMPHOCYTES % (AUTO) 6.8 % (21.0-51.0); MEAN CORPUSCULAR HGB CONC 32.6 g/dL (33.0-35.0); MEAN CORPUSCULAR VOLUME 92.5 fL (80.0-100.0); MONOCYTES # (AUTO) 0.5 x10^3/uL (0.3-0.8); MONOCYTES % (AUTO) 3.4 % (0.0-13.0); NEUTROPHILS # (AUTO) 13.6 x10^3/uL (2.2-4.8); NEUTROPHILS % (AUTO) 89.6 % (42.0-75.0); PLATELET COUNT 365 X10^3/uL (150.0-450.0); WHITE BLOOD COUNT 15.2 X10^3/uL (3.6-10.0)
[2024-01-17 05:27] LABS: ALANINE AMINOTRANSFERASE 28 Units/L (12-78); ALBUMIN 2.6 g/dL (3.4-5.0); ALKALINE PHOSPHATASE 81 Units/L (46-116); ASPARTATE AMINO TRANSFERASE 12 Units/L (15-37); BLOOD UREA NITROGEN 20 mg/dL (7-18); CALCIUM 8.2 mg/dL (8.5-10.1); CHLORIDE 100 mmol/L (98-107); COR CA(FOR HYPOALB) 9.3 mg/dL (8.5-10.1); COR NA(FOR HYPERGLY) 141 mmol/L (136-145); CREATININE 0.72 mg/dL (0.55-1.02); GLUCOSE 184 mg/dL (65-99); SODIUM 139 mmol/L (136-145); eGFR NON BLACK RACES > 60 (>60)
[2024-01-17 05:32] LABS: PLATELET MORPHOLOGY COMMENT NORMAL (NORMAL)
[2024-01-17 05:34] LABS: STOMATOCYTES PRESENT
--- NOTE | 2024-01-17 11:43 | PCM.PROG ---
Progress Note Progress Note for Day of Date of Exam: 01/17/24 Subjective Subjective: Patient seen at bedside, no acute events overnight. She reports having sore throat and hoarseness. She denies SOB. She is being treated for COPD exacerbation. She is currently on IV antibiotics and steroids. She has been getting bronchodilators. Patient is currently on room air. She has been ambulating in the room. Labs/imaging reviewed -WBC 15.2 Hgb 14.7 BUN/Cr: 20/0.72 glucose 184 -Sputum Cx: neg Plan: Will check rapid strep. Continue IV azithromycin and solumedrol. Follow pe nding Cx. Continue bronchodilators prn. Continue decongestants, Flonase, continue cetirizine. Continue toradol prn. Continue home medications. Replace electrolytes as per protocol. Monitor AM labs/imaging Past Medical Family Social History Allergies: Allergies cyclobenzaprine [From Flexeril] Allergy (Verified 05/11/23 14:42) Vital Signs and I&O's Vital Signs: Vital Signs Temperature 98.2 F Temperature 98.1 F Temperature 97.6 F Pulse Rate [Right Radial] 80 Pulse Rate [Right Radial] 98 Pulse Rate [Right Radial] 84 Pulse Rate 80 Pulse Rate 79 Respiratory Rate 18 Respiratory Rate 18 Respiratory Rate 20 Blood Pressure [Left Arm] 165/82 Blood Pressure [Left Arm] 146/76 Blood Pressure [Left Arm] 159/83 O2 Sat by Pulse Oximetry 95 O2 Sat by Pulse Oximetry 96 O2 Sat by Pulse Oximetry 98 O2 Sat by Pulse Oximetry 96 O2 Sat by Pulse Oximetry 95 Intake and Output: Intake & Output 01/14/24 01/15/24 01/16/24 01/17/24 23:59 23:59 23:59 23:59 Intake Total 3241 / 3241 3076 / 3076 1596 / 1596 612 / 612 Balance 3241 / 3241 3076 / 3076 1596 / 1596 612 / 612 Physical Exam Oriented: Normal Eyes: Normal Ear: Normal Nose: Discharge Respiratory: Diminished and Wheezes Cardiovascular: Normal Auscultation: Bowel Sounds: Normal Palpation: Normal Tenderness: Normal Skin: Decreased Turgur Musculoskeletal: Back:Lumbar Psychiatric: Anxiety Mood Description: Calm Affect: Normal Speech Pattern: Clear and Appropriate Laboratory and Diagnostics 01/17/24 04:40 01/17/24 04:40 Labs: 01/14/24 10:47 Sputum - Expectorated Sputum Sputum Culture - Final 01/14/24 10:47 Sputum - Expectorated Sputum - Final Laboratory WBC 15.2 X10^3/uL (3.6-10.0) H 01/17/24 04:40 RBC 4.86 X10^6/uL (3.5-5.4) 01/17/24 04:40 Hgb 14.7 g/dL (12.0-16.0) 01/17/24 04:40 Hct 45.0 % (36.0-47.0) 01/17/24 04:40 MCV 92.5 fL (80.0-100.0) 01/17/24 04:40 MCH 30.2 pg (27.0-34.0) 01/17/24 04:40 MCHC 32.6 g/dL (33.0-35.0) L 01/17/24 04:40 RDW 14.1 % (11.6-16.5) 01/17/24 04:40 Plt Count 365 X10^3/uL (150.0-450.0) 01/17/24 04:40 Plt Count Comment Adequate (ADEQUATE) 01/17/24 04:40 MPV 8.4 fL (7.4-11.0) 01/17/24 04:40 Neut % (Auto) 89.6 % (42.0-75.0) H 01/17/24 04:40 Lymph % (Auto) 6.8 % (21.0-51.0) L 01/17/24 04:40 [place] % (Auto) 3.4 % (0.0-13.0) 01/17/24 04:40 Eos % (Auto) 0.0 % (0.9-2.9) L 01/17/24 04:40 Baso % (Auto) 0.2 % (0.2-1.0) 01/17/24 04:40 Neut # (Auto) 13.6 x10^3/uL (2.2-4.8) H 01/17/24 04:40 Lymph # (Auto) 1.0 X10^3/uL (1.3-2.9) L 01/17/24 04:40 [place] # (Auto) 0.5 x10^3/uL (0.3-0.8) 01/17/24 04:40 Eos # (Auto) 0.0 x10^3/uL (0.0-0.2) 01/17/24 04:40 Baso # (Auto) 0.0 X10^3/uL (0.0-0.1) 01/17/24 04:40 Absolute Nucleated RBC 0.0 /100WBC 01/17/24 04:40 Total Counted 100 01/17/24 04:40 Neutrophils % (Manual) 82 % (39-76) H 01/17/24 04:40 Lymphocytes % (Manual) 14 % (13-43) 01/17/24 04:40 Monocytes % (Manual) 4 % (4-9) 01/17/24 04:40 Metamyelocytes % 4 01/16/24 04:43 Myelocytes % 1 01/16/24 04:43 Atypical Lymphocytes Few A 01/16/24 04:43 Plt Morphology Comment Normal (NORMAL) 01/17/24 04:40 RBC Morphology Abnormal (NORMAL) A 01/17/24 04:40 Stomatocytes Present 01/17/24 04:40 Sample Site Lra 01/15/24 08:25 ABG pH 7.400 (7.35-7.45) 01/15/24 08:25 ABG pCO2 54.0 mmHg (35.0-45.0) H* 01/15/24 08:25 ABG pO2 66.0 mmHg (80.0-100.0) L 01/15/24 08:25 ABG HCO3 33.4 mmol/L (22-26) H* 01/15/24 08:25 ABG O2 Saturation 93.0 % (90-100) 01/15/24 08:25 ABG Base Excess 7.1 mmol/L (-2.0-2.0) H 01/15/24 08:25 Shahid Test Pos 01/15/24 08:25 A-a Gradient 16.0 mmHg 01/15/24 08:25 FiO2 21.0 01/15/24 08:25 Blood Gas Comments Pt rochelle well eb 01/15/24 08:25 Sodium 139 mmol/L (136-145) 01/17/24 04:40 Corrected Sodium 141 mmol/L (136-145) 01/17/24 04:40 Potassium 4.0 mmol/L (3.5-5.1) 01/17/24 04:40 Chloride 100 mmol/L (98-107) 01/17/24 04:40 Carbon Dioxide 31.0 mmol/L (21-32) 01/17/24 04:40 BUN 20 mg/dL (7-18) H 01/17/24 04:40 Creatinine 0.72 mg/dL (0.55-1.02) 01/17/24 04:40 Est GFR (MDRD) Af Amer > 60 (>60) 01/17/24 04:40 Est GFR (MDRD) Non-Af > 60 (>60) 01/17/24 04:40 Glucose 184 mg/dL (65-99) H 01/17/24 04:40 Calcium 8.2 mg/dL (8.5-10.1) L 01/17/24 04:40 Corrected Calcium 9.3 mg/dL (8.5-10.1) 01/17/24 04:40 Magnesium 2.3 mg/dL (2.0-2.9) 01/14/24 05:33 Total Bilirubin 0.20 mg/dL (0.2-1.0) 01/17/24 04:40 AST 12 Units/L (15-37) L 01/17/24 04:40 ALT 28 Units/L (12-78) 01/17/24 04:40 Alkaline Phosphatase 81 Units/L (46-116) 01/17/24 04:40 Creatine Kinase 20 Units/L (26-192) L 01/14/24 13:35 Troponin I High Sens 4.6 ng/L (4.0-60.0) 01/14/24 13:35 Total Protein 6.0 g/dL (6.4-8.2) L 01/17/24 04:40 Albumin 2.6 g/dL (3.4-5.0) L 01/17/24 04:40 Globulin 3.4 g/dL (2.5-4.5) 01/17/24 04:40 Albumin/Globulin Ratio 0.8 Ratio (1.1-2.1) L 01/17/24 04:40 SARS-CoV-2 (PCR) Negative (NEGATIVE) 01/11/24 14:05 Influenza Type A (PCR) Negative (NEGATIVE) 01/11/24 14:05 Influenza Type B (PCR) Negative (NEGATIVE) 01/11/24 14:05 RSV (PCR) Negative (NEGATIVE) 01/11/24 14:05 S. pyogenes (TEM-PCR) Not detected (NOT DETECT) 01/17/24 10:27 Plan (1) Acute exacerbation of chronic obstructive pulmonary disease: Status: Acute (2) Sinusitis: Status: Acute Qualifiers: Chronicity: chronic Sinusitis location: frontal Qualified Code(s): J32.1 - Chronic frontal sinusitis (3) Tooth abscess: Status: Acute (4) NATALEE (generalized anxiety disorder): Status: Acute (5) Degenerative lumbar spinal stenosis: Status: Acute (6) Hypertension: Status: Acute Qualifiers: Hypertension type: primary hypertension Qualified Code(s): I10 - Essential (primary) hypertension
[2024-01-18 04:59] LABS: BASOPHILS # (AUTO) 0.1 X10^3/uL (0.0-0.1); BASOPHILS % (AUTO) 0.3 % (0.2-1.0); HEMATOCRIT 45.4 % (36.0-47.0); HEMOGLOBIN 14.6 g/dL (12.0-16.0); LYMPHOCYTES # (AUTO) 1.3 X10^3/uL (1.3-2.9); LYMPHOCYTES % (AUTO) 7.9 % (21.0-51.0); MEAN CORPUSCULAR HEMOGLOBIN 29.8 pg (27.0-34.0); MEAN CORPUSCULAR HGB CONC 32.1 g/dL (33.0-35.0); MEAN CORPUSCULAR VOLUME 92.6 fL (80.0-100.0); MEAN PLATELET VOLUME 8.1 fL (7.4-11.0); MONOCYTES # (AUTO) 0.9 x10^3/uL (0.3-0.8); MONOCYTES % (AUTO) 5.4 % (0.0-13.0); NEUTROPHILS # (AUTO) 14.1 x10^3/uL (2.2-4.8); NEUTROPHILS % (AUTO) 86.4 % (42.0-75.0); PLATELET COUNT 364 X10^3/uL (150.0-450.0); RED CELL DISTRIBUTION WIDTH 13.9 % (11.6-16.5); WHITE BLOOD COUNT 16.3 X10^3/uL (3.6-10.0)
[2024-01-18 05:17] LABS: ALANINE AMINOTRANSFERASE 33 Units/L (12-78); ALBUMIN 2.6 g/dL (3.4-5.0); ALKALINE PHOSPHATASE 75 Units/L (46-116); ASPARTATE AMINO TRANSFERASE 15 Units/L (15-37); BLOOD UREA NITROGEN 21 mg/dL (7-18); CALCIUM 8.2 mg/dL (8.5-10.1); CHLORIDE 101 mmol/L (98-107); COR CA(FOR HYPOALB) 9.3 mg/dL (8.5-10.1); COR NA(FOR HYPERGLY) 139 mmol/L (136-145); CREATININE 0.66 mg/dL (0.55-1.02); GLUCOSE 158 mg/dL (65-99); POTASSIUM 4.1 mmol/L (3.5-5.1); SODIUM 138 mmol/L (136-145); TOTAL PROTEIN 5.8 g/dL (6.4-8.2); eGFR NON BLACK RACES > 60 (>60)
[2024-01-18 06:15] LABS: BAND NEUTROPHILS % 1 % (0-10); PLATELET MORPHOLOGY COMMENT NORMAL (NORMAL); STOMATOCYTES PRESENT
[2024-01-18] MEDS: NYSTATIN SUSP PO SCH (08:55)
[2024-01-18 16:08] VITALS: BP 138/65; PULSE 88; RESP 20; TEMP 97.8; O2SAT 95
--- NOTE | 2024-01-18 17:45 | PCM.DCPLAN ---
DISCHARGE SUMMARY Admission Date Date of Admission: 01/11/24 Discharge Date Discharge Date: 01/18/24 Admission Diagnoses (1) Acute exacerbation of chronic obstructive pulmonary disease: Status: Acute (2) Sinusitis: Status: Acute (3) Tooth abscess: Status: Acute (4) NATALEE (generalized anxiety disorder): Status: Acute (5) Degenerative lumbar spinal stenosis: Status: Acute (6) Hypertension: Status: Acute Discharge Diagnoses Discharge Diagnosis: Resolved acute exacerbation of copd, sinusitus, tooth abscess, add thrush, same as admission Discharge Medications Discharge Medications: Home Medication List buspirone 5 mg tablet 5 mg PO BID 01/11/24 [History] varenicline 1 mg tablet 1 mg PO BID 01/11/24 [History] fluconazole 100 mg tablet (Diflucan) 100 mg PO QDAY 5 days #5 tabs 01/18/24 [Rx] nystatin 100,000 unit/mL oral suspension 5 ml PO QID 14 days #280 mL 01/18/24 [Rx] Prescriptions: fluconazole [Diflucan] JACQUILUIS nystatin JACQUI,[facility] Hospital Course Vital Signs: Vital Signs Temperature 97.9 F Temperature 98.1 F Pulse Rate [Right Radial] 71 Pulse Rate [Right Radial] 67 Respiratory Rate 18 Respiratory Rate 20 Blood Pressure [Left Arm] 143/73 Blood Pressure [Left Arm] 147/82 O2 Sat by Pulse Oximetry 94 O2 Sat by Pulse Oximetry 95 Latest Lab Results: Laboratory Last Values WBC 16.3 X10^3/uL (3.6-10.0) H 01/18/24 04:23 RBC 4.90 X10^6/uL (3.5-5.4) 01/18/24 04:23 Hgb 14.6 g/dL (12.0-16.0) 01/18/24 04:23 Hct 45.4 % (36.0-47.0) 01/18/24 04:23 MCV 92.6 fL (80.0-100.0) 01/18/24 04:23 MCH 29.8 pg (27.0-34.0) 01/18/24 04:23 MCHC 32.1 g/dL (33.0-35.0) L 01/18/24 04:23 RDW 13.9 % (11.6-16.5) 01/18/24 04:23 Plt Count 364 X10^3/uL (150.0-450.0) 01/18/24 04:23 Plt Count Comment Adequate (ADEQUATE) 01/18/24 04:23 MPV 8.1 fL (7.4-11.0) 01/18/24 04:23 Neut % (Auto) 86.4 % (42.0-75.0) H 01/18/24 04:23 Lymph % (Auto) 7.9 % (21.0-51.0) L 01/18/24 04:23 [place] % (Auto) 5.4 % (0.0-13.0) 01/18/24 04:23 Eos % (Auto) 0.0 % (0.9-2.9) L 01/18/24 04:23 Baso % (Auto) 0.3 % (0.2-1.0) 01/18/24 04:23 Neut # (Auto) 14.1 x10^3/uL (2.2-4.8) H 01/18/24 04:23 Lymph # (Auto) 1.3 X10^3/uL (1.3-2.9) 01/18/24 04:23 [place] # (Auto) 0.9 x10^3/uL (0.3-0.8) H 01/18/24 04:23 Eos # (Auto) 0.0 x10^3/uL (0.0-0.2) 01/18/24 04:23 Baso # (Auto) 0.1 X10^3/uL (0.0-0.1) 01/18/24 04:23 Absolute Nucleated RBC 0.0 /100WBC 01/18/24 04:23 Total Counted 100 01/18/24 04:23 Neutrophils % (Manual) 82 % (39-76) H 01/18/24 04:23 Band Neutrophils % 1 % (0-10) 01/18/24 04:23 Lymphocytes % (Manual) 14 % (13-43) 01/18/24 04:23 Monocytes % (Manual) 4 % (4-9) 01/18/24 04:23 Metamyelocytes % 4 01/16/24 04:43 Myelocytes % 1 01/16/24 04:43 Atypical Lymphocytes Few A 01/18/24 04:23 Plt Morphology Comment Normal (NORMAL) 01/18/24 04:23 RBC Morphology Abnormal (NORMAL) A 01/18/24 04:23 Stomatocytes Present 01/18/24 04:23 Sample Site Lra 01/15/24 08:25 ABG pH 7.400 (7.35-7.45) 01/15/24 08:25 ABG pCO2 54.0 mmHg (35.0-45.0) H* 01/15/24 08:25 ABG pO2 66.0 mmHg (80.0-100.0) L 01/15/24 08:25 ABG HCO3 33.4 mmol/L (22-26) H* 01/15/24 08:25 ABG O2 Saturation 93.0 % (90-100) 01/15/24 08:25 ABG Base Excess 7.1 mmol/L (-2.0-2.0) H 01/15/24 08:25 Shahid Test Pos 01/15/24 08:25 A-a Gradient 16.0 mmHg 01/15/24 08:25 FiO2 21.0 01/15/24 08:25 Blood Gas Comments Pt rochelle well eb 01/15/24 08:25 Sodium 138 mmol/L (136-145) 01/18/24 04:23 Corrected Sodium 139 mmol/L (136-145) 01/18/24 04:23 Potassium 4.1 mmol/L (3.5-5.1) 01/18/24 04:23 Chloride 101 mmol/L (98-107) 01/18/24 04:23 Carbon Dioxide 30.0 mmol/L (21-32) 01/18/24 04:23 BUN 21 mg/dL (7-18) H 01/18/24 04:23 Creatinine 0.66 mg/dL (0.55-1.02) 01/18/24 04:23 Est GFR (MDRD) Af Amer > 60 (>60) 01/18/24 04:23 Est GFR (MDRD) Non-Af > 60 (>60) 01/18/24 04:23 Glucose 158 mg/dL (65-99) H 01/18/24 04:23 Calcium 8.2 mg/dL (8.5-10.1) L 01/18/24 04:23 Corrected Calcium 9.3 mg/dL (8.5-10.1) 01/18/24 04:23 Magnesium 2.3 mg/dL (2.0-2.9) 01/18/24 04:23 Total Bilirubin 0.20 mg/dL (0.2-1.0) 01/18/24 04:23 AST 15 Units/L (15-37) 01/18/24 04:23 ALT 33 Units/L (12-78) 01/18/24 04:23 Alkaline Phosphatase 75 Units/L (46-116) 01/18/24 04:23 Creatine Kinase 20 Units/L (26-192) L 01/14/24 13:35 Troponin I High Sens 4.6 ng/L (4.0-60.0) 01/14/24 13:35 Total Protein 5.8 g/dL (6.4-8.2) L 01/18/24 04:23 Albumin 2.6 g/dL (3.4-5.0) L 01/18/24 04:23 Globulin 3.2 g/dL (2.5-4.5) 01/18/24 04:23 Albumin/Globulin Ratio 0.8 Ratio (1.1-2.1) L 01/18/24 04:23 SARS-CoV-2 (PCR) Negative (NEGATIVE) 01/11/24 14:05 Influenza Type A (PCR) Negative (NEGATIVE) 01/11/24 14:05 Influenza Type B (PCR) Negative (NEGATIVE) 01/11/24 14:05 RSV (PCR) Negative (NEGATIVE) 01/11/24 14:05 S. pyogenes (TEM-PCR) Not detected (NOT DETECT) 01/17/24 10:27 Hospital Course: PT IS 53 WF, DIRECT ADMIT FROM DR ADRIAN OFFICE ON 01/11/24 FOR TREATMENT OF COPD EXACERBATION AFTER FAILING OUTPATIENT TREATMENT. UPON ADMISSION, PT WAS STARTED ON IV HYDRATION, IV ABX, IV STEROIDS, RESPIRATORY THERAPY. WE OBTAINED A RESPIRATORY SWAB THAT WAS NEGATIVE FOR FLU, COVID, RSV AND CHEST XRAY THAT SHOWED NO ACUTE CARDIOPULMONARY ABNORMALITY. ADMISSION LABS: WBC 11.8, HGB 16.2, BUN 14/CREATININE 0.7. ON 01/13/24, WE OBTAINED A REPEAT CHEST XRAY AND IT SHOWED NO ABNORMALITY. WE OBTAINED AN EKG THAT SHOWED NORMAL SINUS RHYTHM AND CARDIAC ENZYMES THAT WERE NEGATIVE. SPUTUM CULTURE CAME BACK NEGATIVE. ON 01/15/24, WE OBTAINED A REPEAT CHEST XRAY THAT CONTINUED TO SHOW NO ABNORMALITY. SHE HAD COMPLAINS OF A RECURRENT HEADACHE, SO WE TREATED THE PATIENT WITH TORADOL AND OBTAINED A CT SINUSES THAT SHOWED CHRONIC RIGHT FRONTAL SINUSITIS, RIGHT MAXILLARY MOLAR PERIAPICAL ABSCESSES. PATIENT HAS BEEN ON AZITHROMYCIN, SO WE CONTINUED THIS AND RECOMMENDED THE PATIENT TO FOLLOW UP WITH DENTIST UPON DISCHARGE. YESTERDAY, PATIENT STARTED COMPLAINING WITH SORE THROAT AND HOARSENESS. WE OBTAINED RAPID STREP, WHICH WAS NEGATIVE. THIS MORNING, PHYSICAL EXAM REVEALED THRUSH, SO WE STARTED HER ON NYSTATIN ORAL SUSPENSION. AM LABS: HGB 14.6, WBC 16.3, BUN 21/CREATININE 0.66. MORNING VITALS: 147/82-67-20-98.1-95%. OVERALL, THE PATIENT STATES THAT SHE IS FEELING MUCH IMPROVED. SHE DENIES SHORTNESS OF BREATH. WE WILL ALLOW THE PATIENT TO DISCHARGE HOME ON PO DIFLUCAN AND NYSTATIN ORAL SUSPENSION. AGAIN, SHE WILL NEED TO FOLLOW UP WITH A DENTIST. SHE WILL ALSO NEED TO FOLLOW UP WITH HER PRIMARY CARE PROVIDER. SHE HAS AN APPOINTMENT SCHEDULED WITH PCP ON 01/21/24 AT 11AM. PLEASE SEE DISCHARGE PLAN FOR LIST OF DISCHARGE MEDICATION AND MODIFICATIONS THAT WE MADE, ELECTRONIC MEDICAL RECORD FOR DIAGNOSTIC TESTS AND LABS. THE PATIENT WAS INSTRUCTED TO RETURN TO THE ER IF CONDITION CHANGED OR WORSENED UNEXPECTEDLY.
== END 2024-01-18 17:35 | disposition home or self-care (01) | DRG 192 ==
LOC: MED/SURG 13:26
PROVIDERS: ADMIT Internal Medicine; ATTEND Internal Medicine
DX: Z20.822 Contact with and (suspected) exposure to COVID-19; G25.81 Restless legs syndrome; R07.89 Other chest pain; M48.061 Spinal stenosis, lumbar region without neurogenic claudication; I10 Essential (primary) hypertension; K04.7 Periapical abscess without sinus; J44.1 Chronic obstructive pulmonary disease with (acute) exacerbation; J32.1 Chronic frontal sinusitis; F41.1 Generalized anxiety disorder; R51.9 Headache, unspecified; R06.02 Shortness of breath

== ENCOUNTER 2025-04-25 11:22 | Inpatient (IN) ==
[2025-04-25 12:29] VITALS: BMI 46.2
[2025-04-25] MEDS: NS 1,000 ML IV 1,000 ML IV SCH (12:48)
[2025-04-25] MEDS: PROTONIX INJ 40 MG VIAL IVP SCH (12:49)
[2025-04-25] MEDS: LEVAQUIN PREMIX IV 500 MG 500 MG/100 ML BAG IV SCH (12:49)
[2025-04-25 13:00] LABS: MEAN PLATELET VOLUME 7.8 fL (7.4-11.0); RED CELL DISTRIBUTION WIDTH 14.8 % (11.6-16.5)
[2025-04-25 13:19] LABS: COR CA(FOR HYPOALB) 9.9 mg/dL (8.5-10.1); COR NA(FOR HYPERGLY) 142 mmol/L (136-145); CREATININE 0.73 mg/dL (0.55-1.02); eGFR NON BLACK RACES > 60 (>60)
[2025-04-25] MEDS: TUSSIONEX PENNKINETIC SUSP PO PRN (13:38)
[2025-04-25 13:42] LABS: ABG BASE EXCESS 4.3 mmol/L (-2.0-2.0); ABG HCO3 29.8 mmol/L (22-26); ABG OXYGEN SATURATION 93.0 % (90-100); ABG PCO2 47.0 mmHg (35.0-45.0); ABG PH 7.410 (7.35-7.45); ABG PO2 66.0 mmHg (80.0-100.0)
[2025-04-25 13:44] LABS: ABG ALLEN TEST POSITIVE
[2025-04-25] MEDS: CARAFATE PO SCH (16:14)
[2025-04-25] MEDS: PROVENTIL NEB TX 0.083% 2.5MG/ 3ML NEB SCH (16:56)
[2025-04-25] MEDS ORDERED: NORCO 7.5/325 MG TAB PO PRN (16:59)
--- NOTE | 2025-04-25 17:06 | DR.H&P ---
H&P History & Physical for Day of: H&P Date: 04/25/25 Chief Complaint Chief Complaint: CCC, SOB History of Present Illness History of Present Illness: PT IS 54 WF, DIRECT ADMIT FROM DR ADRIAN OFFICE WITH CCC, INCREASED SOB, AND WHEEZING FOR 3 WEEKS. PT WAS SEEN ON 04/13 AND GIVEN ZPAK, MDP AND DUO NEBS, THEN IM ROCEPHIN AND KENALOG WITH PO PREDNISONE WITHOUT IMPROVEMENT. PT HAS COPD, NORMALLY CONTROLLED ON BREZTRI AND ALBUTEROL. PT HAS PMH OF HTN, ANCA, MO, HYPERLIPIDEMIA, GERD AND MDD. PT ADMITTED FOR TREATMENT AND EVALUATION OF ACUTE ILLNESS. Past Medical History Past Medical History: Asthma, COPD, GERD and Hypertension Past Surgical History Surgical History: and Cholecystectomy Family History Family Medical History: Diabetes Mellitus, Cancer and Hypertension Social History Does patient currently use any type of tobacco product: Yes Have you used tobacco products in the last 12 months: Yes Type of Tobacco Use: Cigarettes How many years tobacco product used: 25 Alcohol Use: None Drug Use: None Medications Home Medications: Home Medications Medication Instructions Recorded Confirmed Type famotidine 40 mg tablet (Pepcid) 40 mg PO BID 12/31/20 04/25/25 History pantoprazole 40 mg tablet,delayed 40 mg PO BID 1 04/25/25 History release (Protonix) amlodipine 5 mg tablet 5 mg PO QHS 05/11/23 5 History cetirizine 10 mg tablet 10 mg PO QHS 05/11/23 History hydrocodone 7.5 mg-acetaminophen 1 tab PO BID PRN 08/04/2604/25/25 History 325 mg tablet losartan 100 mg tablet 100 mg PO QDAY 05/11/2304/05 History montelukast 10 mg tablet 10 mg PO QAM 05/11/23 History ropinirole 1 mg tablet 1 mg PO BID 05/11/23 5 History simvastatin 20 mg tablet 20 mg PO QHS 05/11/23 History albuterol sulfate 90 mcg/actuation 2 inh inhalation IN N PRN 08/11/23 04/25/25 History aerosol inhaler bempedoic acid 180 mg-ezetimibe 10 1 tab PO QDAY 11/0204/25/25 History mg tablet (Nexlizet) furosemide 20 mg tablet (Lasix) 20 mg PO QDAY PRN 10/0604/25/25 History potassium chloride 10 mEq 10 meq PO QDAY PRN 11/02/24 04/25/25 History tablet,extended release cariprazine 1.5 mg capsule 1.5 mg PO QHS 04/25/2504/05 History (Vraylar) Allergies Allergies Allergy/AdvReac Type Severity Reaction Status Date / Time cyclobenzaprine (From Allergy Verified 05/11/23 14:42 Flexeril) Labs 04/25/25 12:40 04/25/25 12:40 Labs: Laboratory WBC 14.2 X10^3/uL (3.6-10.0) H 04/25/25 12:40 RBC 4.96 X10^6/uL (3.5-5.4) 04/25/25 12:40 Hgb 14.7 g/dL (12.0-16.0) 04/25/25 12:40 Hct 44.1 % (36.0-47.0) 04/25/25 12:40 MCV 89.0 fL (80.0-100.0) 04/25/25 12:40 MCH 29.6 pg (27.0-34.0) 04/25/25 12:40 MCHC 33.3 g/dL (33.0-35.0) 04/25/25 12:40 RDW 14.8 % (11.6-16.5) 04/25/25 12:40 Plt Count 318 X10^3/uL (150.0-450.0) 04/25/25 12:40 MPV 7.8 fL (7.4-11.0) 04/25/25 12:40 Neut % (Auto) 71.4 % (42.0-75.0) 04/25/25 12:40 Lymph % (Auto) 19.7 % (21.0-51.0) L 04/25/25 12:40 [place] % (Auto) 7.5 % (0.0-13.0) 04/25/25 12:40 Eos % (Auto) 1.0 % (0.9-2.9) 04/25/25 12:40 Baso % (Auto) 0.4 % (0.2-1.0) 04/25/25 12:40 Neut # (Auto) 10.1 x10^3/uL (2.2-4.8) H 04/25/25 12:40 Lymph # (Auto) 2.8 X10^3/uL (1.3-2.9) 04/25/25 12:40 [place] # (Auto) 1.1 x10^3/uL (0.3-0.8) H 04/25/25 12:40 Eos # (Auto) 0.1 x10^3/uL (0.0-0.2) 04/25/25 12:40 Baso # (Auto) 0.1 X10^3/uL (0.0-0.1) 04/25/25 12:40 Absolute Nucleated RBC 0.0 /100WBC 04/25/25 12:40 Sample Site Lr 04/25/25 13:40 ABG pH 7.410 (7.35-7.45) 04/25/25 13:40 ABG pCO2 47.0 mmHg (35.0-45.0) H 04/25/25 13:40 ABG pO2 66.0 mmHg (80.0-100.0) L 04/25/25 13:40 ABG HCO3 29.8 mmol/L (22-26) H 04/25/25 13:40 ABG O2 Saturation 93.0 % (90-100) 04/25/25 13:40 ABG Base Excess 4.3 mmol/L (-2.0-2.0) H 04/25/25 13:40 Shahid Test Positive 04/25/25 13:40 FiO2 21 04/25/25 13:40 Blood Gas Comments Toll well 04/25/25 13:40 Sodium 142 mmol/L (136-145) 04/25/25 12:40 Corrected Sodium 142 mmol/L (136-145) 04/25/25 12:40 Potassium 3.9 mmol/L (3.5-5.1) 04/25/25 12:40 Chloride 104 mmol/L (98-107) 04/25/25 12:40 Carbon Dioxide 30.7 mmol/L (21-32) 04/25/25 12:40 BUN 13 mg/dL (7-18) 04/25/25 12:40 Creatinine 0.73 mg/dL (0.55-1.02) 04/25/25 12:40 Est GFR (MDRD) Af Amer > 60 (>60) 04/25/25 12:40 Est GFR (MDRD) Non-Af > 60 (>60) 04/25/25 12:40 Glucose 111 mg/dL (65-99) H 04/25/25 12:40 Calcium 9.2 mg/dL (8.5-10.1) 04/25/25 12:40 Corrected Calcium 9.9 mg/dL (8.5-10.1) 04/25/25 12:40 Total Bilirubin 0.40 mg/dL (0.2-1.0) 04/25/25 12:40 AST 10 Units/L (15-37) L 04/25/25 12:40 ALT 23 Units/L (12-78) 04/25/25 12:40 Alkaline Phosphatase 104 Units/L (46-116) 04/25/25 12:40 Total Protein 7.0 g/dL (6.4-8.2) 04/25/25 12:40 Albumin 3.1 g/dL (3.4-5.0) L 04/25/25 12:40 Globulin 3.9 g/dL (2.5-4.5) 04/25/25 12:40 Albumin/Globulin Ratio 0.8 Ratio (1.1-2.1) L 04/25/25 12:40 Review of Systems Constitutional: Weakness Eyes: No Symptoms Reported ENT: Ear Pain, Nose Congestion and Throat Pain Respiratory: Cough, Shortness of Breath, SOB with Excertion, Pleuritic Pain, Sputum and Wheezing Cardiovascular: No Symptoms Reported Gastrointestinal: Nausea Genitourinary: No Symptoms Reported Musculoskeletal: Back Pain Skin: No Symptoms Reported Neurological: Weakness Physical Exam Vital Signs: Vital Signs Temperature 97.5 F Temperature 98.1 F Temperature 98.1 F Pulse Rate [Radial] 85 Pulse Rate [Radial] 98 Pulse Rate 98 Respiratory Rate 19 Respiratory Rate 19 Respiratory Rate 19 Blood Pressure [Right Arm] 138/69 Blood Pressure [Right Arm] 138/90 Blood Pressure 161/84 O2 Sat by Pulse Oximetry 95 O2 Sat by Pulse Oximetry 96 O2 Sat by Pulse Oximetry 96 Oriented: Normal Eyes: Normal Nose: Discharge Throat: Dry Respiratory: Wheezes Throughout, RLL Diminished and LLL Diminished Cardiovascular: negative Edema Auscultation: Bowel Sounds: Normal Tenderness: Normal Skin: Decreased [place] Musculoskeletal: Back:Thoracic and Back:Lumbar Psychiatric: Anxiety Mood Description: Anxious Affect: Anxious Speech Pattern: Clear and Appropriate Assessment/Plan (1) Acute exacerbation of chronic obstructive pulmonary disease: Status: Acute Plan: ADMIT, IV ATBX, SOLU MEDROL BP CONTROL, RESP THERAPY PRN SUPPLMENTAL O2 IV HYDRATION CXR ON ADMISSION, ABG ON ADMISSION (2) Degenerative lumbar spinal stenosis: Status: Acute (3) NATALEE (generalized anxiety disorder): Status: Chronic (4) Acute bronchitis: Status: Acute (5) Hypertension: Qualifiers: Hypertension type: primary hypertension Qualified Code(s): I10 - Essential (primary) hypertension Status: Chronic
[2025-04-25] MEDS: PULMICORT NEB TX 0.5 MG NEB SCH (20:25)
[2025-04-25] MEDS: ZOCOR TAB 20 MG PO SCH (21:01)
[2025-04-25] MEDS: NORVASC TAB 5 MG PO SCH (21:01)
[2025-04-25] MEDS: REQUIP PO SCH (21:01)
[2025-04-25] MEDS: PATIENT'S HOME MEDICATION PO SCH (23:28)
[2025-04-26 06:20] LABS: MEAN PLATELET VOLUME 8.5 fL (7.4-11.0); RED CELL DISTRIBUTION WIDTH 14.7 % (11.6-16.5)
[2025-04-26 06:35] LABS: COR CA(FOR HYPOALB) 9.8 mg/dL (8.5-10.1); COR NA(FOR HYPERGLY) 145 mmol/L (136-145); CREATININE 0.86 mg/dL (0.55-1.02); eGFR NON BLACK RACES > 60 (>60)
--- NOTE | 2025-04-26 06:38 | RAD ---
EXAMINATION: CHEST, PA/LAT ADULT HISTORY: copd exacerbation; . COMPARISON STUDY: Chest x-ray 04/24/2025 TECHNIQUE: Two views of the chest frontal and lateral projections FINDINGS: Lungs are symmetrically expanded. Nonspecific opacity medial right pulmonary base. [id number] cardiac silhouette enlargement. Normal pulmonary vascular pattern. The dorsal aspect of the thoracic spine was not included on the lateral view. The visualized bones appear intact IMPRESSION: Cardiac silhouette enlargement. Nonspecific opacity medial right pulmonary base. THIS IS AN ELECTRONICALLY VERIFIED FINAL REPORT 04/26/2025 6:35 AM - Electronically signed by Zohreh Mir MD
[2025-04-26 06:43] LABS: BAND NEUTROPHILS % 5 % (0-10); PLATELET MORPHOLOGY COMMENT NORMAL (NORMAL)
[2025-04-26] MEDS ORDERED: CONSULT PHARMACY - POTASSIUM & MAGNESIUM XX SCH (07:00)
[2025-04-26] MEDS: COZAAR PO SCH (08:22)
[2025-04-26] MEDS: K-DUR TAB 20 MEQ PO SCH (08:22)
[2025-04-26] MEDS: MAG-OX TAB PO SCH (08:22)
[2025-04-26] MEDS: LASIX IVP ONE (08:26)
[2025-04-26] MEDS: ROBITUSSIN DM PO SCH (08:26)
[2025-04-26] MEDS: PEPCID TAB 40 MG PO PRN (09:56)
[2025-04-26] MEDS: LOVENOX INJ 40 MG SYR SC SCH (11:19)
[2025-04-26] MEDS ORDERED: PHARMACY CONSULT XX SCH (12:00)
[2025-04-26] MEDS: COLACE CAP 100 MG PO SCH (21:35)
[2025-04-27 06:21] LABS: MEAN PLATELET VOLUME 8.4 fL (7.4-11.0); RED CELL DISTRIBUTION WIDTH 14.7 % (11.6-16.5)
[2025-04-27 06:32] LABS: COR CA(FOR HYPOALB) 9.8 mg/dL (8.5-10.1); COR NA(FOR HYPERGLY) 143 mmol/L (136-145); CREATININE 0.69 mg/dL (0.55-1.02); eGFR NON BLACK RACES > 60 (>60)
[2025-04-27 06:55] LABS: BAND NEUTROPHILS % 2 % (0-10); PLATELET MORPHOLOGY COMMENT NORMAL (NORMAL)
[2025-04-27] MEDS: NYSTATIN SUSP MT SCH (09:12)
[2025-04-27] MEDS: DIFLUCAN PO SCH (09:12)
[2025-04-27] MEDS ORDERED: OMNIPAQUE 350 mg/mL 100 mL BTL 100 ML ONE (13:27)
--- NOTE | 2025-04-27 14:56 | CT ---
EXAM: CT chest with contrast HISTORY: COPD, shortness of breath, smoking history TECHNIQUE: Axial postcontrast images with coronal and sagittal reformats. Dose reduction procedures were used with mA/kv adjusted for body size. COMPARISON: None FINDINGS: Examination of the mediastinum demonstrated no evidence for mediastinal mass, abnormally enlarged mediastinal or abnormal hilar lymphadenopathy or significant aortic abnormality. No pleural effusions are identified. No chest wall or axillary abnormalities identified. Those portions of the upper abdominal organs visualized appeared within normal limits. Examination of the lung vital demonstrated no pulmonary masses, alveolar infiltrates, areas of consolidation, peribronchial thickening, or bronchiectasis. No significant noncalcified pulmonary nodules are identified. IMPRESSION: No significant abnormality identified THIS IS AN ELECTRONICALLY VERIFIED FINAL REPORT 04/27/2025 2:52 PM - Electronically signed by Jose Avery MD
[2025-04-28] MEDS ORDERED: OMNIPAQUE 350 mg/mL 100 mL BTL 100 ML ONE (03:07)
[2025-04-28] MEDS ORDERED: NS 500 ML IV 500 ML IV ONE (03:07)
[2025-04-28] MEDS: VALIUM PO ONE (03:30)
--- NOTE | 2025-04-28 05:20 | CT ---
EXAM: SOFT TISSUE NECK WITH CON HISTORY: SOB, R/O OBSTRUCTION ; COPD, HTN, ASTHMA, PNEUMONIA, SLEEP APNEA SX: IHSAN, CSECTION, NECK COMPARISON: None. TECHNIQUE: Axial CT images of the neck were obtained after the administration of IV contrast and reformatted into sagittal and coronal planes for further evaluation. FINDINGS: There is asymmetrical mild soft tissue thickening of the left posterior wall in the supraglottic region. Retropharyngeal and parapharyngeal spaces appear normal. Epiglottis and aryepiglottic folds appear normal. Glottis appears normal. Parotid and submandibular glands appear normal. Thyroid appears normal Lung apices are clear of focal airspace disease. No lymphadenopathy. Imaged portion of the structures of the mediastinum are unremarkable. No acute osseous abnormality. Imaged portion of the intracranial contents are unremarkable. Sinuses and mastoid air cells are well aerated. Neck vasculature is unremarkable. IMPRESSION: Mild asymmetrical soft tissue thickening involving the left posterior wall in the supraglottic region. Direct visualization recommended for further evaluation. Otherwise unremarkable CT soft tissue neck THIS IS AN ELECTRONICALLY VERIFIED FINAL REPORT 04/28/2025 5:16 AM - Electronically signed by Stan Alfred MD
[2025-04-28 06:22] LABS: MEAN PLATELET VOLUME 8.4 fL (7.4-11.0); RED CELL DISTRIBUTION WIDTH 14.7 % (11.6-16.5)
[2025-04-28 06:38] LABS: COR CA(FOR HYPOALB) 9.6 mg/dL (8.5-10.1); CREATININE 0.76 mg/dL (0.55-1.02); eGFR NON BLACK RACES > 60 (>60)
[2025-04-28 07:09] LABS: BASOPHILS % (MANUAL) 0 % (0-1); PLATELET MORPHOLOGY COMMENT NORMAL (NORMAL)
[2025-04-28] MEDS ORDERED: CONSULT PHARMACY - POTASSIUM & MAGNESIUM XX SCH (08:00)
[2025-04-28] MEDS: K-DUR TAB 20 MEQ PO SCH (08:31)
[2025-04-28] MEDS: MAG-OX TAB PO SCH (08:32)
[2025-04-29] VITALS: RESP 19
[2025-04-29 07:04] LABS: COR CA(FOR HYPOALB) 9.4 mg/dL (8.5-10.1); CREATININE 0.76 mg/dL (0.55-1.02); MEAN PLATELET VOLUME 8.0 fL (7.4-11.0); RED CELL DISTRIBUTION WIDTH 15.0 % (11.6-16.5); eGFR NON BLACK RACES > 60 (>60)
[2025-04-29 07:41] LABS: BAND NEUTROPHILS % 2 % (0-10)
[2025-04-29 07:43] LABS: PLATELET MORPHOLOGY COMMENT NORMAL (NORMAL)
[2025-04-29 09:09] VITALS: O2SAT 95
[2025-04-29 11:12] VITALS: BP 147/83; PULSE 79; TEMP 97.9
== END 2025-04-29 12:15 | disposition home or self-care (01) | DRG 192 ==
LOC: MED/SURG → OBSVTOIN 11:38 → MED/SURG 16:20
PROVIDERS: ADMIT Internal Medicine; ATTEND Internal Medicine
DX: R06.02 Shortness of breath; R05.1 Acute cough; I10 Essential (primary) hypertension; M48.061 Spinal stenosis, lumbar region without neurogenic claudication; Z72.0 Tobacco use; E78.5 Hyperlipidemia, unspecified; J98.01 Acute bronchospasm; E83.42 Hypomagnesemia; R93.89 Abnormal findings on diagnostic imaging of other specified body structures; G25.81 Restless legs syndrome; J44.1 Chronic obstructive pulmonary disease with (acute) exacerbation; E11.65 Type 2 diabetes mellitus with hyperglycemia; F41.8 Other specified anxiety disorders; K21.00 Gastro-esophageal reflux disease with esophagitis, without bleeding; M51.369 Other intervertebral disc degeneration, lumbar region without mention of lumbar back pain or lower extremity pain; M19.90 Unspecified osteoarthritis, unspecified site